=== PATIENT | female | born 1935 | race Caucasian/White ===

== ENCOUNTER → 2016-12-13 | Outpatient (REF) | payer MEDICARE, MEDICAID ==
[~2016-12-13] MED LIST: /ESCI10TA PO; /ESCI20TA PO; /ESOM40CA PO; /MOM400 OR; /WARF25TA OR; ALTA5CAP PO; AMBI10TA PO; ASPI81TA83 PO; BISAC5TA OR; CALC600T7 PO; DRIS1CAP PO; ESTRACE PO; FLECTOR PATCH; GABA400C PO; IBUP200C PO; KLON1TAB PO; LASI40TA PO; LOMO2.5T PO; MIRA255PW OR; MORP10SO PO; MORP15TA4 PO; MORP30TA2 PO; MULTIVIT PO; MULTTAB4 PO; NEUR800T PO; NICO21PAT TD; NICO21PAT TOP; OXYC40TA19 OR; OXYC40TA19 PO; SENO8.6T9 OR; TOPR100T PO; TYLE325T5 PO; ULTR50TA PO; XARE10TA PO; ambien PO
[2016-12-13 18:48] LABS: ALBUMIN 3.3 GM/DL (3.2-5.2); ALBUMIN/GLOBULIN RATIO 0.89 (1.00-1.93); ALKALINE PHOSPHATASE 170 U/L (45-117); ALT/SGPT 20 U/L (12-78); ANION GAP 9 MEQ/L (8-16); AST/SGOT 29 U/L (15-37); BILIRUBIN,TOTAL 0.7 MG/DL (0.2-1.0); BLOOD UREA NITROGEN 16 MG/DL (7-18); CALCIUM LEVEL 8.9 MG/DL (8.8-10.2); CARBON DIOXIDE LEVEL 39 MEQ/L (21-32); CHLORIDE LEVEL 88 MEQ/L (98-107); CREATININE FOR GFR 0.93 MG/DL (0.55-1.02); FERRITIN 56 NG/ML (8-252); GLOMERULAR FILTRATION RATE > 60.0 (>32); GLUCOSE, FASTING 74 MG/DL (83-110); PERCENT SATURATION 21.8 % (13.2-37.4); POTASSIUM SERUM 3.8 MEQ/L (3.5-5.1); SODIUM LEVEL 136 MEQ/L (136-145); TOTAL IRON BINDING CAPACITY 459 UG/DL (250-450)
[2016-12-13 19:12] LABS: BASO % 0.7 % (0.0-1.0); EOS # 0.2 K/mm3 (0.0-0.50); EOS % 4.5 % (0.0-3.0); LARGE UNSTAINED CELL # 0.1 K/mm3 (0.0-0.4); LARGE UNSTAINED CELL % 2.2 % (0.0-4.0); LYMPH # 1.3 K/mm3 (1.5-4.5); LYMPH % 21.7 % (24.0-44.0); MEAN CORPUSCULAR HEMOGLOBIN 30.3 pg (27.0-33.0); MEAN CORPUSCULAR HGB CONC 31.5 g/dl (32.0-36.5); MONO # 0.4 K/mm3 (0.0-0.8); MONO % 7.7 % (0.0-5.0); NEUTROPHILS # 3.5 K/mm3 (1.8-7.7); NEUTROPHILS % 63.3 % (36.0-66.0); PLATELET COUNT, AUTOMATED 143 k/mm3 (150-450); WHITE BLOOD COUNT 5.6 K/mm3 (4.0-10.0)
== END ==
LOC: M SFHCPLAZ 15:33
PROVIDERS: ATTEND Family Medicine
DX: Z85.3 Personal history of malignant neoplasm of breast (principal); I10 Essential (primary) hypertension; E11.9 Type 2 diabetes mellitus without complications; E55.9 Vitamin D deficiency, unspecified; Z23 Encounter for immunization
CPT/HCPCS: 36415; 80053; 82306; 82728; 83036; 83550; 83970; 85025; 86300; 90670; G0009; G0463

== ENCOUNTER 2017-03-11 12:28 | Emergency (ER) | payer MEDICARE, MEDICAID ==
[~2017-03-11] VITALS: Ht 157.5 cm; Wt 62.7 kg
[2017-03-11] MEDS ORDERED: NS 1,000 ML IV SCH (12:48)
[2017-03-11] MEDS ORDERED: SULF-216 XX (12:52)
[2017-03-11] MEDS ORDERED: OXYC1SOL PO (12:52)
[2017-03-11] MEDS ORDERED: ASPI81TA85 PO (12:52)
[2017-03-11] MEDS ORDERED: CYCL10TA PO (12:52)
[2017-03-11] MEDS ORDERED: GLIM2TAB PO (12:52)
[2017-03-11] MEDS ORDERED: OMEP40CA2 PO (12:52)
[2017-03-11] MEDS ORDERED: NS 500 ML IV ONE (13:00)
[2017-03-11 13:16] LABS: BASO # 0.1 K/mm3 (0.0-0.2); BASO % 1.1 % (0.0-1.0); EOS # 0.1 K/mm3 (0.0-0.50); EOS % 1.4 % (0.0-3.0); LARGE UNSTAINED CELL # 0.1 K/mm3 (0.0-0.4); LARGE UNSTAINED CELL % 1.3 % (0.0-4.0); LYMPH # 1.1 K/mm3 (1.5-4.5); LYMPH % 12.9 % (24.0-44.0); MEAN CORPUSCULAR HEMOGLOBIN 32.1 pg (27.0-33.0); MEAN CORPUSCULAR HGB CONC 33.4 g/dl (32.0-36.5); MEAN CORPUSCULAR VOLUME 96.2 fl (80.0-96.0); MONO # 0.4 K/mm3 (0.0-0.8); MONO % 4.9 % (0.0-5.0); NEUTROPHILS # 6.5 K/mm3 (1.8-7.7); NEUTROPHILS % 78.5 % (36.0-66.0); PLATELET COUNT, AUTOMATED 182 k/mm3 (150-450); RED CELL DISTRIBUTION WIDTH 14.6 % (11.5-14.5); WHITE BLOOD COUNT 8.3 K/mm3 (4.0-10.0)
[2017-03-11 14:02] LABS: ALBUMIN 2.6 GM/DL (3.2-5.2); ALBUMIN/GLOBULIN RATIO 0.65 (1.00-1.93); BILIRUBIN,DIRECT 0.2 MG/DL (0.0-0.2); BILIRUBIN,TOTAL 0.9 MG/DL (0.2-1.0); CREATININE FOR GFR 1.15 MG/DL (0.55-1.02); GLOMERULAR FILTRATION RATE 48.3 (>32); POTASSIUM SERUM 4.5 MEQ/L (3.5-5.1); TOTAL PROTEIN 6.6 GM/DL (6.4-8.2)
--- NOTE | 2017-03-11 16:14 | REP ---
CHEST, TWO VIEWS: Two views of the chest are performed and compared to prior study of 06/27/2015. The heart is upper limits of normal in size. There is calcification and tortuosity of the thoracic aorta. The mediastinal silhouette is unchanged. There is bibasilar fibro atelectatic change without consolidating infiltrate. There is osteopenia with mild degenerative changes of the spine. There are several compression deformities of the mid to lower thoracic vertebral bodies which are stable but there is a new moderate compression deformity of T4. IMPRESSION: Chronic bibasilar fibro atelectatic changes. Multiple compression deformities of the thoracic spine are unchanged since 2014 except for new compression deformity at T4 level. Signed by Jose A Del Cid MD 03/11/2017 05:14 P
[2017-03-11 18:35] VITALS: BP 128/59
== END 2017-03-11 18:39 | disposition home or self-care (01) ==
LOC: M ED 13:47
DX: E87.1 Hypo-osmolality and hyponatremia (principal); R53.83 Other fatigue; I25.10 Atherosclerotic heart disease of native coronary artery without angina pectoris; I11.0 Hypertensive heart disease with heart failure; G89.29 Other chronic pain; Z90.79 Acquired absence of other genital organ(s); Z90.89 Acquired absence of other organs; Z88.0 Allergy status to penicillin; Z88.8 Allergy status to other drugs, medicaments and biological substances; Z79.82 Long term (current) use of aspirin; Z79.891 Long term (current) use of opiate analgesic; Z79.899 Other long term (current) drug therapy

== ENCOUNTER 2017-06-07 10:16 | Emergency (ER) | payer MEDICARE, MEDICAID ==
[~2017-06-07] VITALS: Ht 157.5 cm; Wt 55.5 kg
[~2017-06-07 10:16] MED LIST changes: +ASPI81TA85 PO; +CYCL10TA PO; +GLIM2TAB PO; +OMEP40CA2 PO; +OXYC1SOL3 PO; +SULF-216 XX
[2017-06-07] MEDS ORDERED: ONDANSETRON 4MG/2ML VIAL (J2405) IV ONE (10:45)
[2017-06-07] MEDS ORDERED: MORPHINE 2 MG/ML 1ML SYRINGE IV ONE (10:45)
[2017-06-07 12:25] VITALS: BP 136/62
--- NOTE | 2017-06-10 08:31 | REP ---
Clinical: Trauma. Technique: AP view of the pelvis and a neutral and frog lateral views of the right hip. Findings: The patient is status post bilateral arthroplasty. Osteopenia and degenerative changes to the visualized lumbosacral spine and pelvis noted. No obvious acute right hip fracture identified. Impression: Osteopenia and degenerative changes along with bilateral arthroplasty. No acute fracture appreciated. Signed by Uri Pacheco MD 06/07/2017 11:10 A
--- NOTE | 2017-06-10 08:31 | REP ---
Clinical: Trauma. Technique: Frontal view of the chest with multiple views of the right hemithorax. Findings: Frontal view of the chest demonstrates no acute cardiopulmonary process. Multiple views of the right hemithorax demonstrates no obvious acute rib fracture or pathology. Impression: Normal right rib series Signed by Uri Pacheco MD 06/07/2017 11:11 A
== END 2017-06-07 13:44 | disposition home or self-care (01) ==
LOC: EDBD 10:16 → M ED 10:16
DX: S20.211A Contusion of right front wall of thorax, initial encounter (principal); S00.83XA Contusion of other part of head, initial encounter; Z85.3 Personal history of malignant neoplasm of breast; I10 Essential (primary) hypertension; J44.9 Chronic obstructive pulmonary disease, unspecified; Z72.0 Tobacco use; W01.198A Fall on same level from slipping, tripping and stumbling with subsequent striking against other object, initial encounter; Y92.099 Unspecified place in other non-institutional residence as the place of occurrence of the external cause; Y93.89 Activity, other specified; Y99.9 Unspecified external cause status
CPT/HCPCS: 71101; 73502; 96374; 96375; 99284; J2405

== ENCOUNTER 2017-08-23 03:23 | Inpatient (IN) | payer MEDICARE, MEDICAID ==
[~2017-08-23] VITALS: Ht 157.5 cm; Wt 49.5 kg
[2017-08-23] MEDS ORDERED: ZOLP10TA2 PO (03:47)
[2017-08-23 04:27] LABS: BASO % 0.5 % (0.0-1.0); EOS # 0.1 10^3/uL (0.0-0.50); EOS % 0.8 % (0.0-3.0); IMMATURE GRANULOCYTE % 0.6 % (0-0); LYMPH # 0.8 10^3/uL (1.5-4.5); LYMPH % 12.1 % (24.0-44.0); MEAN CORPUSCULAR HEMOGLOBIN 31.9 pg (27.0-33.0); MEAN CORPUSCULAR HGB CONC 34.1 g/dl (32.0-36.5); MEAN CORPUSCULAR VOLUME 93.6 fl (80.0-96.0); MONO # 0.5 10^3/uL (0.0-0.8); MONO % 8.1 % (0.0-5.0); NEUTROPHILS # 4.9 10^3/uL (1.8-7.7); NEUTROPHILS % 77.9 % (36.0-66.0); PLATELET COUNT, AUTOMATED 207 10^3/uL (150-450); RED CELL DISTRIBUTION WIDTH 15.7 % (11.5-14.5); WHITE BLOOD COUNT 6.3 10^3/uL (4.0-10.0)
[2017-08-23 04:47] LABS: ALBUMIN 2.6 GM/DL (3.2-5.2); ALBUMIN/GLOBULIN RATIO 0.76 (1.00-1.93); ALKALINE PHOSPHATASE 138 U/L (45-117); ALT/SGPT 14 U/L (12-78); ANION GAP 6 MEQ/L (8-16); AST/SGOT 24 U/L (7-37); BILIRUBIN,DIRECT 0.4 MG/DL (0.0-0.2); BILIRUBIN,TOTAL 0.9 MG/DL (0.2-1.0); BLOOD UREA NITROGEN 13 MG/DL (7-18); CALCIUM LEVEL 8.4 MG/DL (8.8-10.2); CARBON DIOXIDE LEVEL 38 MEQ/L (21-32); CHLORIDE LEVEL 89 MEQ/L (98-107); CREATININE FOR GFR 0.95 MG/DL (0.55-1.02); GLOMERULAR FILTRATION RATE > 60.0 (>32); GLUCOSE, FASTING 150 MG/DL (83-110); POTASSIUM SERUM 4.1 MEQ/L (3.5-5.1); SODIUM LEVEL 133 MEQ/L (136-145); T UPTAKE 49 % (30-39); THYROXINE (T4) 10.6 UG/DL (4.5-12.0)
[2017-08-23 04:55] LABS: ABG BASE EXCESS 6.2 (-2.0-2.0); ABG HCO3 31.5 MEQ/L (22.0-26.0); ABG PARTIAL PRESSURE CO2 47.5 mmHg (35.0-45.0); ABG STANDARD HCO3 29.9 MEQ/L (22.0-26.0)
[2017-08-23] MEDS ORDERED: NS 500 ML IV ONE (05:15)
[2017-08-23] MEDS ORDERED: ONDANSETRON 4 MG TAB (S0181) PO PRN (05:15)
[2017-08-23] MEDS ORDERED: CIPROFLOXACIN 400 MG in APPROPRIATE DILUENT 1 EA IV ONE (05:15)
[2017-08-23] MEDS ORDERED: VITMTA PO (05:40)
[2017-08-23] MEDS ORDERED: VITA1CAP40 PO (05:41)
[2017-08-23] MEDS ORDERED: GLIM1TAB PO (05:41)
[2017-08-23] MEDS ORDERED: ASPI1TAB15 PO (05:41)
[2017-08-23] MEDS ORDERED: VITA500T PO (05:41)
[2017-08-23] MEDS ORDERED: OXYC-517 PO (05:41)
[2017-08-23] MEDS ORDERED: ZOLP5TAB PO (05:41)
[2017-08-23] MEDS ORDERED: GLUCOSE 4 GM CHEW TABLET PO PRN (06:15)
[2017-08-23] MEDS ORDERED: DEXTROSE 50% 50 ML SYRINGE IV PRN (06:15)
[2017-08-23] MEDS ORDERED: GLUCAGON FOR INJ 1 MG VIAL (J1610) SC PRN (06:15)
--- NOTE | 2017-08-23 06:20 | REPUSA ---
CLINICAL HISTORY: Lethargy. TECHNIQUE: Multiple axial CT images were obtained through the brain without IV contrast material. COMMENTS: Comparison to prior exam performed on 09/18/2012. 3.5x2.7 cm left frontal/temporal cortical/subcortical ill-defined hypodensity. Mild effacement of the adjacent sulci. There is normal configuration of sella turcica. There are no intra or extra-axial collections. There is no mass effect or midline shift. There is no evidence of hematoma formation. No hydrocephalus is p resent. The ventricles are symmetrical. No abnormal calcifications are present. There is diffuse age-appropriate cerebellar and cerebral atrophy with proportionally dilated ventricl es and cortical sulci. There are bilateral periventricular and subcortical white matter hypolucencies compatible with mild c hronic microvascular disease. IMPRESSION: 1. Age-appropriate cerebellar and cerebral atrophy. 2. Mild chronic microvascular disease. 3. Cortical/subcortical hypodensity in the left frontal/temporal lobes. This may represent Acute/suba cute ischemia. Clinical evaluation and followup are suggested. No associated significant edema, midli ne shift or brain herniation. Findings are not present on prior exam. Thank you for your kind referral of this patient.
[2017-08-23 06:52] VITALS: BP 128/78
--- NOTE | 2017-08-23 07:11 | HPEPDOC ---
General Date of Admission Aug 23, 2017 at 03:24 Primary Care Physician: Suraj Valdivia M.D. Attending Physician: Ishmael Martinez M.D. Chief Complaint 81-year-old female is brought to the ED by home health aide due to altered mental status and lethargy. PMH includes Diastolic Heart failure, HTN, COPD on 2L NC prn, hx of recurrent pancreatitis, alcohol hepatitis/cirrhosis. Per aide, patient complained of weakness in her legs 2 days ago, and as of yesterday was very lethargic, unable to self assist herself with movements, and and out of coherence, babbling her words, lacking strength, and confused. For the 2 months this aide has worked with patient, she denies having witnessed this before. Per aide, patient had baseline is communicative and able to move on her own. Health aid denies the patient having slurred speech, droopy face, body shaking, loss of bowel or bladder function. In the ED, patient was given a fluid bolus and 1 dose of Cipro. Home Medications Scheduled (Gabapentin) 400 Mg Cap, 400 MG PO BID, (Reported) Ascorbic Acid (Vitamin C) 500 Mg Tab, 500 MG PO QAM, (Reported) Aspirin (Aspirin) 81 Mg Tab, 81 MG PO DAILY, (Reported) Clonazepam (Klonopin) 1 Mg Tab, 1 MG PO BID, (Reported) Ergocalciferol (Vitamin D) 50,000 Unit Cap, 50,000 UNIT PO QWEEK, (Reported) ON WEDNESDAYS Escitalopram Oxalate (Lexapro) 20 Mg Tab, 20 MG PO QHS, (Reported) Esomeprazole (Nexium) 40 Mg Cap, 40 MG PO DAILY, (Reported) AT NOON Furosemide (Lasix) 40 Mg Tab, 40 MG PO DAILY, (Reported) Glimepiride (Glimepiride) 1 Mg Tab, 1 MG PO BID, (Reported) Metoprolol Succinate (Metoprolol Succinate Er) 100 Mg Tab, 100 MG PO DAILY, ( Reported) Multivitamins *[facility] STOCKED* (Thera M Plus *[facility] STOCKED*) 1 Tab Tab, 1 TAB PO DAILY, (Reported) Oxycodone HCl (Oxycodone HCl) 5 Mg Tab, 5 MG PO ASDIRECTED, (Reported) EVERY 5 HOURS AND 2 AT BEDTIME NEEDED FOR PAIN Ramipril (Altace) 5 Mg Cap, 5 MG PO BID, (Reported) Scheduled PRN Zolpidem Tartrate (Zolpidem Tartrate) 5 Mg Tab, 5 MG PO QHS PRN for SLEEP, ( Reported) Allergies Coded Allergies: Clavulanic Acid (Verified Adverse Reaction, Mild, VOMITING, 01/05/13) Penicillins (Verified Adverse Reaction, Mild, VOMITING, 01/05/13) Penicillins Cross Reactors (Verified Adverse Reaction, Mild, VOMITING, 01/05) Past Medical History Medical History History left breast cancer s/p lumpectomy, radiation, chemotherapy Diastolic Heart failure HTN COPD, 2L NC prn Depression Insomnia GERD Subclinical hyperthyroidism Stress, urge incontinence DJD Osteoarthritis Essential tremor Nicotine addiction Anemia of chronic disease History of recurrent pancreatitis Alcohol hepatitis/cirrhosis Avascular necrosis of humeral head Hx of H. pylori Surgical History Enterocele repair Bilateral cataract repair Right femoral shaft fracture repair Lumpectomy, breast cancer Family History Per her PCP's clinic note dated 05/29/2017: , Bart, is healthcare proxy, she does not want daughter, Lori, involved in her care in any way Social History Has a history of heavy tobacco and alcohol use Lives with , assisted by home health care coordinator Review of Symptoms Constitutional: Reports: Weakness, Fatigue, Lethargy, Denies: Chills, Fever Pulmonary: Reports: Cough Cardiovascular: Denies: Chest Pain, Lt Headedness Gastrointestinal: Denies: Nausea, Vomiting, Abdominal Pain Genitourinary: Denies: Incontinence Neurological: Reports: Weakness, Change in speech (garbled), Confusion, Denies: Numbness, Incoordination, Seizures Other systems All ROS is obtained via pt's home comfort advisor in room Physical Examination General Exam: Positive: No Acute Distress, Negative: Alert, Cooperative (minimally responsive) Eye Exam: Positive: Conjunctiva & lids normal ENT Exam: Positive: Atraumatic Neck Exam: Negative: Lymphadenopathy Chest Exam: Positive: Clear to auscultation (initial rhonchi that cleared up on patient's cough) Heart Exam: Positive: Rate Normal, Normal S1, Normal S2 Abdomen Exam: Positive: Normal bowel sounds, Soft, Negative: Tenderness Extremity Exam: Positive: Normal pulses, Negative: Cyanosis, Edema, Tenderness, Swelling Skin Exam: Positive: Nl turgor and temperature Neuro Exam: Negative: Normal Speech (mumbled), Strength at 5/5 X4 ext, Normal Tone (weak hand migratory worker) Psych Exam: Negative: Mental status NL (minimally interactive, eyes closed in bed, responds with 1-2 words intermittently), Memory Intact, Oriented x 3 (is NOT oriented to self, place, or year) Vital Signs Vital Signs Date Time Temp Pulse Resp B/P (MAP) Pulse Ox O2 Delivery O2 Flow Rate FiO2 08/23/17 05:15 68 16 107/54 (71) 92 Room Air 08/23/17 03:43 98.0 2.0 Laboratory Data Labs 24H Laboratory Tests 2 08/23/17 04:00: Immature Granulocyte % (Auto) 0.6H, White Blood Count 6.3, Red Blood Count 5.30 , Hemoglobin 16.9H, Hematocrit 49.6H, Mean Corpuscular Volume 93.6, Mean Corpuscular Hemoglobin 31.9, Mean Corpuscular Hemoglobin Concent 34.1, Red Cell Distribution Width 15.7H, Platelet Count 207, Neutrophils (%) (Auto) 77.9H, Lymphocytes (%) (Auto) 12.1L, Monocytes (%) (Auto) 8.1H, Eosinophils (%) (Auto) 0.8, Basophils (%) (Auto) 0.5, Neutrophils # (Auto) 4.9, Lymphocytes # (Auto) 0.8L, Monocytes # (Auto) 0.5, Eosinophils # (Auto) 0.1, Basophils # (Auto) 0.0, Immature Granulocyte # (Auto) 0.0, Nucleated Red Blood Cells % (auto) 0.0, Anion Gap 6L, Glomerular Filtration Rate > 60.0, Lactic Acid Level 1.5, Calcium Level 8.4L, Aspartate Amino Transf (AST/SGOT) 24, Alanine Aminotransferase (ALT/ SGPT) 14, Alkaline Phosphatase 138H, Total Bilirubin 0.9, Direct Bilirubin 0.4H , Ammonia 13, Total Protein 6.0L, Albumin 2.6L, Albumin/Globulin Ratio 0.76L, Lipase 66L, Thyroid Stimulating Hormone (TSH) 0.376, Free Thyroxine Index 5.2H, Thyroxine (T4) 10.6, Triiodothyronine (T3) Uptake 49H 08/23/17 04:41: Urine Appearance HAZY, Urine Color YELLOW, Urine pH 7.0, Urine Specific [place] 1.008, Urine Protein NEGATIVE, Urine Glucose (UA) NEGATIVE, Urine Ketones NEGATIVE, Urine Urobilinogen 2.0H, Urine Bilirubin NEGATIVE, Urine Leukocyte Esterase 2+H, Urine Blood NEGATIVE, Urine Nitrite POSITIVE, Urine WBC (Auto) 19H , Urine RBC (Auto) 1, Urine Hyaline Casts (Auto) 0, Urine Bacteria (Auto) 1+H, Urine Squamous Epithelial Cells 0, Urine Sperm (Auto) 08/23/17 04:44: Blood Gas Bicarbonate Standard 29.9H, Arterial Blood pH 7.440, Arterial Blood Partial Pressure CO2 47.5H, Arterial Blood Partial Pressure O2 58.0L, Arterial Blood Total CO2 33.0H, Arterial Blood HCO3 31.5H, Arterial Blood Base Excess 6.2H, Arterial Blood Oxygen Saturation 90.0L CBC/BMP Laboratory Tests 08/23/17 04:00 Red Blood Count 5.30, Mean Corpuscular Volume 93.6, Mean Corpuscular Hemoglobin 31.9, Mean Corpuscular Hemoglobin Concent 34.1, Red Cell Distribution Width 15.7 H, Neutrophils (%) (Auto) 77.9 H, Lymphocytes (%) (Auto) 12.1 L, Monocytes (%) (Auto) 8.1 H, Eosinophils (%) (Auto) 0.8, Basophils (%) (Auto) 0.5, Neutrophils # (Auto) 4.9, Lymphocytes # (Auto) 0.8 L, Monocytes # (Auto) 0.5, Eosinophils # (Auto) 0.1, Basophils # (Auto) 0.0 Microbiology Microbiology 08/23/17 Blood Culture, Received Pending 08/23/17 Urine Culture, Received Pending Assessment/Plan Altered mental status UTI vs ischemic infarct Per nursing executive, patient has been in and out of coherence, babbling her words, lethargic, decreased strength, confused as of yesterday. Patient on exam is minimally interactive, lethargic with eyes closed in bed. Presenting vitals on admission were WNL, as were ABG and thyroid panel; unlikely to be respiratory cause or metabolic encephalopathy or myxedema coma. CXR reveals no acute concerns. CT of head was read as a possible acute/subacute ischemia. Discussed case with Neurology and was recommended to do MRI and then touch base if suspicion is confirmed. Appreciate their assistance Patient was noted to have positive UA which may be contributing to her AMS, no leukocytosis or fever. Will start on Ceftriaxone and fluids. Hold home Lasix as goal is to hydrate pt. Urine & blood cultures pending Elevated H&H pt has hx of anemia of chronic disease likely hemoconcentration. On IV fluids. Monitor Electrolyte abnormality Pt slightly hyponatremic and hypochloremic on admission. IV NaCl fluid started. Monitor DM2 Hold home meds. Start ISS Continue home Gabapentin COPD continue nebs Diastolic Heart Failure no decompensation. Continue ASA 81mg HTN controlled. Continue home Ramipril, Metoprolol Osteoarthritis, DJD Hold home Oxycodone due to altered mental status Depression Hold home Escitalopram due to pt's mental status Insomnia Hold home Ambien due to pt's confused, lethargic state Anemia of chronic disease stable History of recurrent pancreatitis stable Hx of alcohol hepatitis/cirrhosis stable DVT prophylaxis TEDs/SCDs, hold anticoagulation until brain infarct or bleed is ruled out DISPOSITION: Will admit to hospital in transfer to Dr. Martinez service in a.m. Plan / VTE VTE Prophylaxis Ordered?: Yes GME ATTESTATION GME ATTESTATION My faculty preceptor for this patient encounter was physically present during the encounter and was fully available. All aspects of the patient interview, examination, medical decision making process, and medical care plan development were reviewed and approved by the faculty preceptor. The faculty preceptor is aware and concurs with the plan as stated in the body of this note and will attest to such by his/her cosignature. ATTENDING NOTE I have seen and examined the patient as did the resident I have reviewed the case and discussed the plan with her I concur with her findings on HX and PE and agree with her A&P with the following additions/Exceptions: Patient with UTI and Acute/Subacute finding on Head CT with AMS so a 2 MN stay is expected. EDNA TORRES DO Aug 23, 2017 07:10 JULIO ALMANZA MD Aug 24, 2017 22:19
[2017-08-23] MEDS: NS 1,000 ML IV SCH ×2 (08:10→18:50)
[2017-08-23] MEDS: HumaLOG INSULIN (NovoLOG) PER UNIT SC SCH ×4 (08:14→21:00)
--- NOTE | 2017-08-23 08:37 | REP ---
Clinical: Dyspnea . Comparison: 06/07/2017 . Findings: The mediastinum and cardiac silhouette are stable and within normal limits for portable technique. The lung lewis demonstrate chronic interstitial changes without acute consolidation, effusion, or pneumothorax. Skeletal structures are intact. Impression: Stable chronic interstitial changes. No acute cardiopulmonary process appreciated. Signed by Uri Pacheco MD 08/23/2017 08:29 A
[2017-08-23] MEDS ORDERED: RAMIPRIL 5 MG CAP PO SCH (09:00)
[2017-08-23] MEDS ORDERED: ENOXAPARIN 40 MG/0.4 ML SYRINGE (J1650) SC SCH (09:00)
[2017-08-23] MEDS ORDERED: ASPIRIN 81 MG ENTERIC TAB PO SCH (09:00)
[2017-08-23] MEDS ORDERED: METOPROLOL SUCC (TopROL XL) 100MG *XL* TAB PO SCH (09:00)
[2017-08-23 09:36] VITALS: BP 136/70
[2017-08-23] MEDS: clonazePAM 1 MG TAB PO SCH ×2 (09:40→21:27)
[2017-08-23] MEDS: ASCORBIC ACID 500 MG TAB PO SCH (09:40)
[2017-08-23] MEDS: CEFTRIAXONE SOD 1 GM in APPROPRIATE DILUENT 1 EA IV SCH (09:40)
[2017-08-23] MEDS: PANTOPRAZOLE 40MG TAB (PROTONIX) PO SCH (09:40)
[2017-08-23] MEDS: GABAPENTIN 400 MG CAP PO SCH ×2 (09:41→21:27)
[2017-08-23] MEDS: MULTIVITAMINS/MINERALS THERAP 1 TAB PO SCH (09:41)
--- NOTE | 2017-08-23 11:45 | REP ---
Clinical: Altered mental status and suspected acute infarction by CT. Technique: Axial T2, FLAIR, and diffusion/ADC mapping sequences with sagittal T1 sequence. Findings: Examination is significantly limited due to motion artifact. However, areas of acute infarction are identified with in the left temporal and parietofrontal lobe areas with mild edema. No evidence for acute intracranial hemorrhage. Underlying atrophy, periventricular leukomalacia and chronic microvascular ischemic changes are noted. The ventricles, sulci and cisterns are symmetric and patent. No extra-axial fluid collection is appreciated. Impression: The areas of acute infarction involving the left temporal and left parietofrontal lobe regions with mild edema. No intracranial hemorrhage or mass effect is appreciated. Signed by Uri Pacheco MD 08/23/2017 11:36 A
[2017-08-23] MEDS: ASPIRIN 325 MG TAB PO SCH (13:20)
[2017-08-23] MEDS: ATORVASTATIN 20 MG TAB PO SCH (13:20)
[2017-08-23 14:00] VITALS: BP 146/82
--- NOTE | 2017-08-23 14:05 | IPNPDOC ---
Subjective Date Seen The patient was seen on 08/23/17. Subjective Chief Complaint/HPI The patient is a 81-year-old female admitted with a reason for visit of Dehydration, Uti, found to have acute CVA on MRI Events since last encounter Patient states she is doing okay today. She does not have any acute concerns. Constitutional: Denies: Chills, Fever Pulmonary: Denies: Dyspnea Cardiovascular: Denies: Chest Pain Gastrointestinal: Denies: Nausea, Vomiting, Abdominal Pain Genitourinary: Denies: Dysuria, Hematuria Neurological: Denies: Weakness, Numbness Objective Physical Examination General Exam: Positive: Alert, Cooperative, No Acute Distress Chest Exam: Positive: Clear to auscultation, Normal air movement, Negative: Rales, Rhonchi, Wheezing Heart Exam: Positive: Rate Normal, Regular Rhythm, Normal S1, Normal S2, Negative: Gallops, Murmurs, Rubs Abdomen Exam: Positive: Normal bowel sounds, Soft, Negative: Tenderness, Hepatospenomegaly, Mass Extremity Exam: Negative: Edema Neuro Exam: Positive: Normal Speech (mumbled appears to have some difficulty finding words), Strength at 5/5 X4 ext, Sensation Intact Psych Exam: Positive: Mental status NL, Other (oriented to person, hospital, day after [place]) RAD Interpretation STUDY: Brain MRI: Areas of acute infarction involving the left temporal and left parietal frontal lobe regions with mild edema. No acute intracranial hemorrhage or mass effect Assessment /Plan Problems (1) Acute CVA (cerebrovascular accident) Status: Acute Discussed With: Reservation Sales Agent Problem Text: 08/23: Brain MRI revealed acute CVA. Case was discussed with Dr. Tellez from neurology, neurology was consulted. Orders placed for aspirin 325 mg daily, atorvastatin 40 mg daily, PT/OT. (2) Urinary tract infection Problem Text: 08/23: Patient currently being treated for urinary tract infection, ceftriaxone started on 08/23. Follow-up results from urine culture when available (3) Altered mental status Problem Text: 08/23: Improving, likely secondary to urinary tract infection and acute CVA (4) Type 2 diabetes mellitus Problem Text: 08/23: Stable, continue sliding scale insulin (5) COPD (chronic obstructive pulmonary disease) Problem Text: 08/23: Stable, continue nebulizers as needed (6) Diastolic congestive heart failure Problem Text: 08/23: Stable, order for aspirin increased to 325 mg due to acute CVA (7) Hypertension Problem Text: 08/23: Stable, continue current medications (8) Osteoarthritis Problem Text: 08/23: Continue to hold oxycodone due to altered mental status (9) Depression Problem Text: 08/23: Continue to hold escitalopram due to altered mental status (10) Insomnia Problem Text: 08/23: Continue to hold Ambien due to altered mental status Plan/VTE VTE Prophylaxis Ordered?: Yes Plan Therapy: PT, OT Patient was seen and examined by myself and her care was reviewed with the resident physician on service VS, I&O, [facility] Signs/I&O Vital Signs Date Time Temp Pulse Resp B/P (MAP) Pulse Ox O2 Delivery O2 Flow Rate FiO2 08/23/17 10:00 Nasal Cannula 3.0 08/23/17 09:42 92 08/23/17 09:41 83 136/70 08/23/17 09:36 98.4 18 I&O- Last 24 Hours up to 6 AM 08/24/17 06:00 Intake Total 10 ml Output Total 0 ml Balance 10 ml Laboratory Data 24H LABS Laboratory Tests 2 08/23/17 04:00: Immature Granulocyte % (Auto) 0.6H, White Blood Count 6.3, Red Blood Count 5.30 , Hemoglobin 16.9H, Hematocrit 49.6H, Mean Corpuscular Volume 93.6, Mean Corpuscular Hemoglobin 31.9, Mean Corpuscular Hemoglobin Concent 34.1, Red Cell Distribution Width 15.7H, Platelet Count 207, Neutrophils (%) (Auto) 77.9H, Lymphocytes (%) (Auto) 12.1L, Monocytes (%) (Auto) 8.1H, Eosinophils (%) (Auto) 0.8, Basophils (%) (Auto) 0.5, Neutrophils # (Auto) 4.9, Lymphocytes # (Auto) 0.8L, Monocytes # (Auto) 0.5, Eosinophils # (Auto) 0.1, Basophils # (Auto) 0.0, Immature Granulocyte # (Auto) 0.0, Nucleated Red Blood Cells % (auto) 0.0, Anion Gap 6L, Glomerular Filtration Rate > 60.0, Lactic Acid Level 1.5, Calcium Level 8.4L, Aspartate Amino Transf (AST/SGOT) 24, Alanine Aminotransferase (ALT/ SGPT) 14, Alkaline Phosphatase 138H, Total Bilirubin 0.9, Direct Bilirubin 0.4H , Ammonia 13, Total Protein 6.0L, Albumin 2.6L, Albumin/Globulin Ratio 0.76L, Lipase 66L, Thyroid Stimulating Hormone (TSH) 0.376, Free Thyroxine Index 5.2H, Thyroxine (T4) 10.6, Triiodothyronine (T3) Uptake 49H 08/23/17 04:41: Urine Appearance HAZY, Urine Color YELLOW, Urine pH 7.0, Urine Specific [place] 1.008, Urine Protein NEGATIVE, Urine Glucose (UA) NEGATIVE, Urine Ketones NEGATIVE, Urine Urobilinogen 2.0H, Urine Bilirubin NEGATIVE, Urine Leukocyte Esterase 2+H, Urine Blood NEGATIVE, Urine Nitrite POSITIVE, Urine WBC (Auto) 19H , Urine RBC (Auto) 1, Urine Hyaline Casts (Auto) 0, Urine Bacteria (Auto) 1+H, Urine Squamous Epithelial Cells 0, Urine Sperm (Auto) 08/23/17 04:44: Blood Gas Bicarbonate Standard 29.9H, Arterial Blood pH 7.440, Arterial Blood Partial Pressure CO2 47.5H, Arterial Blood Partial Pressure O2 58.0L, Arterial Blood Total CO2 33.0H, Arterial Blood HCO3 31.5H, Arterial Blood Base Excess 6.2H, Arterial Blood Oxygen Saturation 90.0L 08/23/17 07:38: Bedside Glucose (Misc Panel) 153H 08/23/17 12:14: Bedside Glucose (Misc Panel) 166H CBC/BMP Laboratory Tests 08/23/17 04:00 Red Blood Count 5.30, Mean Corpuscular Volume 93.6, Mean Corpuscular Hemoglobin 31.9, Mean Corpuscular Hemoglobin Concent 34.1, Red Cell Distribution Width 15.7 H, Neutrophils (%) (Auto) 77.9 H, Lymphocytes (%) (Auto) 12.1 L, Monocytes (%) (Auto) 8.1 H, Eosinophils (%) (Auto) 0.8, Basophils (%) (Auto) 0.5, Neutrophils # (Auto) 4.9, Lymphocytes # (Auto) 0.8 L, Monocytes # (Auto) 0.5, Eosinophils # (Auto) 0.1, Basophils # (Auto) 0.0 Microbiology Microbiology 08/23/17 Blood Culture, Received Pending 08/23/17 Urine Culture, Received Pending GME ATTESTATION GME ATTESTATION My faculty preceptor for this patient encounter was physically present during the encounter and was fully available. All aspects of the patient interview, examination, medical decision making process, and medical care plan development were reviewed and approved by the faculty preceptor. The faculty preceptor is aware and concurs with the plan as stated in the body of this note and will attest to such by his/her cosignature. REINA LUCIA DO Aug 23, 2017 14:05 Ishmael Martinez M.D. Aug 23, 2017 16:47
[2017-08-23 19:10] VITALS: BP 120/58
[2017-08-23 20:00] VITALS: BP 142/67
[2017-08-23 23:26] VITALS: BP 115/72
[2017-08-23] MEDS: IPRATROPIUM 0.5MG/ALBUTEROL 2.5MG INH SOL UD 3ML (DUONEB)(J7620) NEB PRN (23:55)
[2017-08-24] VITALS: BP 146/76
[2017-08-24] MEDS ORDERED: MAGNESIUM OXIDE 400 MG TAB (MAG-OX) PO ONE (00:15)
[2017-08-24] MEDS: NS 1,000 ML IV SCH ×2 (01:14→13:29)
[2017-08-24 04:00] VITALS: BP 139/59
[2017-08-24 05:26] LABS: BASO % 0.4 % (0.0-1.0); EOS % 0.9 % (0.0-3.0); IMMATURE GRANULOCYTE % 0.9 % (0-0); LYMPH # 0.6 10^3/uL (1.5-4.5); LYMPH % 12.6 % (24.0-44.0); MEAN CORPUSCULAR HEMOGLOBIN 32.2 pg (27.0-33.0); MEAN CORPUSCULAR HGB CONC 33.9 g/dl (32.0-36.5); MEAN CORPUSCULAR VOLUME 95.1 fl (80.0-96.0); MONO # 0.4 10^3/uL (0.0-0.8); MONO % 7.7 % (0.0-5.0); NEUTROPHILS # 3.6 10^3/uL (1.8-7.7); NEUTROPHILS % 77.5 % (36.0-66.0); PLATELET COUNT, AUTOMATED 173 10^3/uL (150-450); RED CELL DISTRIBUTION WIDTH 15.4 % (11.5-14.5); WHITE BLOOD COUNT 4.7 10^3/uL (4.0-10.0)
[2017-08-24 07:34] LABS: ANION GAP 5 MEQ/L (8-16); BLOOD UREA NITROGEN 8 MG/DL (7-18); CALCIUM LEVEL 7.9 MG/DL (8.8-10.2); CARBON DIOXIDE LEVEL 34 MEQ/L (21-32); CHLORIDE LEVEL 97 MEQ/L (98-107); CREATININE FOR GFR 0.66 MG/DL (0.55-1.02); GLOMERULAR FILTRATION RATE > 60.0 (>32); GLUCOSE, FASTING 103 MG/DL (83-110); POTASSIUM SERUM 3.7 MEQ/L (3.5-5.1); SODIUM LEVEL 136 MEQ/L (136-145)
[2017-08-24 08:00] VITALS: BP 145/70
[2017-08-24] MEDS: HumaLOG INSULIN (NovoLOG) PER UNIT SC SCH ×4 (08:17→20:55)
[2017-08-24] MEDS: ASPIRIN 325 MG TAB PO SCH (08:31)
[2017-08-24] MEDS: CEFTRIAXONE SOD 1 GM in APPROPRIATE DILUENT 1 EA IV SCH (08:31)
[2017-08-24] MEDS: ASCORBIC ACID 500 MG TAB PO SCH (08:32)
[2017-08-24] MEDS: ATORVASTATIN 20 MG TAB PO SCH (08:32)
[2017-08-24] MEDS: MULTIVITAMINS/MINERALS THERAP 1 TAB PO SCH (08:32)
[2017-08-24] MEDS: MAGNESIUM OXIDE 400 MG TAB (MAG-OX) PO SCH ×2 (08:32→20:55)
[2017-08-24] MEDS: GABAPENTIN 400 MG CAP PO SCH ×2 (08:32→20:54)
[2017-08-24] MEDS: PANTOPRAZOLE 40MG TAB (PROTONIX) PO SCH (08:32)
[2017-08-24] MEDS: clonazePAM 1 MG TAB PO SCH ×2 (08:32→20:55)
[2017-08-24] MEDS: oxyCODONE 5MG TAB PO PRN ×2 (10:18→17:40)
--- NOTE | 2017-08-24 11:09 | CR ---
DATE OF CONSULTATION: 08/23/2017 REASON FOR CONSULTATION: Suspected stroke. HISTORY OF PRESENT ILLNESS: Viridiana Villafana is an 81-year-old female with past medical history significant for diastolic heart failure, hypertension, chronic obstructive pulmonary disease (COPD) on 2 liters nasal cannula as needed, who presents with a chief complaint of confusion. The patient's home health aid found her to be confused and lethargic. The patient was complaining weakness in both legs for the past few days. The patient was found to have a urinary tract infection (UTI) in the emergency department. Head CT revealed possible subacute ischemic stroke of the left posterior temporal parietal region. The patient ended up having an MRI confirming the presence of any acute ischemic stroke involving the left frontotemporal parietal region. The patient herself does not have any significant complaints of this time. She does generally feel exhausted. Apparently she has been mentating better since being treated for her UTI. HOME MEDICATIONS: - gabapentin 400 mg by mouth twice a day - ascorbic acid 500 mg by mouth daily - aspirin 81 mg by mouth daily - clonazepam 1 mg by mouth twice a day - vitamin D 50,000 international units by mouth every week - Lexapro 20 mg by mouth at bedtime - Nexium 40 mg by mouth daily - Lasix 40 mg by mouth daily - glimepiride 1 mg by mouth twice a day - metoprolol succinate 100 mg by mouth daily - multivitamin by mouth daily - oxycodone 5 mg by mouth daily as needed pain - ramipril 5 mg by mouth twice a day - Ambien 5 mg by mouth at bedtime as needed insomnia ALLERGIES: 1. CLAVULANIC ACID. 2. PENICILLIN. PAST MEDICAL HISTORY: History of left breast cancer status post lumpectomy, radiation, and chemotherapy. Diastolic heart failure. Hypertension. COPD on 2 liters nasal cannula as needed. Depression. Insomnia. Gastroesophageal reflux disease. Subclinical hyperthyroidism. Stress urge incontinence. Degenerative joint disease. Osteoarthritis (OA). Essential tremor. Nicotine addiction. Anemia of chronic disease. History of recurrent pancreatitis. Alcoholic hepatitis and cirrhosis. Avascular necrosis of femoral head. History of H. pylori. PAST SURGICAL HISTORY: Enterocele repair. Bilateral cataract repair. Right femoral shaft fracture repair. Lumpectomy, breast cancer. FAMILY HISTORY: Noncontributory. SOCIAL HISTORY: The patient has a history of tobacco abuse, alcohol abuse. REVIEW OF SYSTEMS: 14-point review of systems obtained and is negative except as per history of present illness. PHYSICAL EXAMINATION: Blood pressure is 136/70, pulse rate 83, respiratory rate is 18, oxygenation 92% on 4 liters nasal cannula, temperature 98.4 degrees Fahrenheit. Current height 5 feet 2 inches, current weight is 54.4 kg. The patient is awake, alert, oriented to person and place, but not the correct year. She is able to follow commands. Pupils are 2.5 mm, round and reactive to light. Extraocular movements are observed to be intact in all directions. Sensation V1, V2 and V3 is intact to light touch. No facial asymmetry on activation. Palate elevates symmetrically. Tongue is midline. The patient does not demonstrate pronator drift. She demonstrates reasonable strength in bilateral biceps and triceps, deltoids. She has weakness in bilateral iliopsoas grade 4+, quadriceps appear to be 5/5, anterior tibialis the patient demonstrates 5- strength. Sensory is intact to light touch in all four extremities. Gait deferred. The patient was fully cooperative during the examination stating that lethargy was limiting her ability to fully cooperate. ASSESSMENT: 1. Acute ischemic stroke of the left frontoparietal temporal region while on baby aspirin at home with significant stroke risk factors. PLAN: 1. Increase aspirin to 325 mg by mouth daily. 2. Start atorvastatin 40 mg by mouth daily. 3. Maintain systolic blood pressures 140-180, hold antihypertensive medications for the next 48-72 hours. 4. Start telemetry monitoring. 5. Patient should be moved to the progressive care unit. 6. Physical therapy (PT)/occupational therapy (OT) recommendation made. 7. Continue treatment for UTI as per primary care.
[2017-08-24 11:40] VITALS: BP 109/52
[2017-08-24] MEDS: APIXABAN 5 MG TAB (ELIQUIS) PO SCH ×2 (13:29→20:55)
[2017-08-24] MEDS: CARVedilol 3.125 MG TAB PO SCH ×2 (13:30→20:55)
[2017-08-24 13:46] LABS: MAGNESIUM LEVEL 1.8 MG/DL (1.8-2.4)
--- NOTE | 2017-08-24 14:24 | IPNPDOC ---
Subjective Date Seen The patient was seen on 08/24/17. Subjective Chief Complaint/HPI The patient is a 81-year-old female admitted with a reason for visit of Dehydration, Uti, acute CVA. Events since last encounter Patient states she is feeling as usual today. She is complaining of some pain in her hip. She does not have any other acute concerns today. Nursing mentioned that patient had 3 pulses on telemetry monitoring overnight. Constitutional: Denies: Chills Pulmonary: Denies: Dyspnea Cardiovascular: Denies: Chest Pain Gastrointestinal: Denies: Abdominal Pain Objective Physical Examination General Exam: Positive: Alert, Cooperative, No Acute Distress Chest Exam: Positive: Clear to auscultation, Normal air movement, Negative: Rales, Rhonchi, Wheezing Heart Exam: Positive: Rate Normal, Regular Rhythm, Normal S1, Normal S2, Negative: Gallops, Murmurs, Rubs Telemetry: Positive: Sinus Abdomen Exam: Positive: Normal bowel sounds, Soft, Negative: Tenderness, Hepatospenomegaly, Mass Extremity Exam: Negative: Edema Neuro Exam: Positive: Normal Speech (mumbled appears to have some difficulty finding words), Strength at 5/5 X4 ext, Sensation Intact Psych Exam: Positive: Mental status NL, Other (oriented to person, hospital, July) Assessment /Plan Problems (1) Acute CVA (cerebrovascular accident) Status: Acute Discussed With: Administrative Liaison Problem Text: 08/23: Brain MRI revealed acute CVA. Case was discussed with Dr. Tellez from neurology, neurology was consulted. Orders placed for aspirin 325 mg daily, atorvastatin 40 mg daily, PT/OT. (2) Paroxysmal atrial fibrillation Problem Text: 08/24: Patient with paroxysmal episodes of atrial fibrillation, sinus pause on telemetry. She will require further evaluation with echocardiogram, carotid ultrasound. Aspirin changed to 81 mg daily. Started on Maxipen 5 mg by mouth twice a day, ramipril 2.5 mg by mouth twice a day, Coreg 3.125 mg by mouth twice a day (3) Hypomagnesemia Problem Text: 08/24: Patient with magnesium of 1.6 overnight, given a one-time dose of 400 mg magnesium oxide, started on daily magnesium oxide 400 mg twice a day (4) Urinary tract infection Problem Text: 08/23: Patient currently being treated for urinary tract infection, ceftriaxone started on 08/23. Follow-up results from urine culture when available (5) Altered mental status Problem Text: 08/23: Improving, likely secondary to urinary tract infection and acute CVA (6) Type 2 diabetes mellitus Problem Text: 08/23: Stable, continue sliding scale insulin (7) COPD (chronic obstructive pulmonary disease) Problem Text: 08/23: Stable, continue nebulizers as needed (8) Diastolic congestive heart failure Problem Text: 08/23: Stable, order for aspirin increased to 325 mg due to acute CVA (9) Hypertension Problem Text: 08/23: Stable, continue current medications (10) Osteoarthritis Problem Text: 08/24: Oxycodone restarted at dose of 5 mg by mouth every 6 hours when necessary 08/23: Continue to hold oxycodone due to altered mental status (11) Depression Problem Text: 08/23: Continue to hold escitalopram due to altered mental status (12) Insomnia Problem Text: 08/23: Continue to hold Ambien due to altered mental status Plan/VTE VTE Prophylaxis Ordered?: Yes Plan Therapy: PT, OT VS, I&O, 24H, Fishbone Vital Signs/I&O Vital Signs Date Time Temp Pulse Resp B/P (MAP) Pulse Ox O2 Delivery O2 Flow Rate FiO2 08/24/17 13:30 80 134/74 08/24/17 11:40 97.0 26 91 Nasal Cannula 2.0 I&O- Last 24 Hours up to 6 AM 08/25/17 06:00 Intake Total 120 ml Balance 120 ml Laboratory Data 24H LABS Laboratory Tests 2 08/23/17 16:57: Bedside Glucose (Misc Panel) 114H 08/23/17 20:47: Bedside Glucose (Misc Panel) 129H 08/23/17 23:05: Magnesium Level 1.6L 08/24/17 04:44: Anion Gap 5L, Glomerular Filtration Rate > 60.0, Blood Urea Nitrogen 8, Creatinine 0.66, Sodium Level 136, Potassium Level 3.7, Chloride Level 97L, Carbon Dioxide Level 34H, Calcium Level 7.9L 08/24/17 04:46: Immature Granulocyte % (Auto) 0.9H, White Blood Count 4.7, Red Blood Count 4.47 , Hemoglobin 14.4#, Hematocrit 42.5, Mean Corpuscular Volume 95.1, Mean Corpuscular Hemoglobin 32.2, Mean Corpuscular Hemoglobin Concent 33.9, Red Cell Distribution Width 15.4H, Platelet Count 173, Neutrophils (%) (Auto) 77.5H, Lymphocytes (%) (Auto) 12.6L, Monocytes (%) (Auto) 7.7H, Eosinophils (%) (Auto) 0.9, Basophils (%) (Auto) 0.4, Neutrophils # (Auto) 3.6, Lymphocytes # (Auto) 0.6L, Monocytes # (Auto) 0.4, Eosinophils # (Auto) 0.0, Basophils # (Auto) 0.0, Immature Granulocyte # (Auto) 0.0, Nucleated Red Blood Cells % (auto) 0.0 08/24/17 11:46: Bedside Glucose (Misc Panel) 96 08/24/17 13:04: Magnesium Level 1.8, Total Creatine Kinase 34, Creatine Kinase MB 3.0, Creatine Kinase MB Relative Index 8.82H, Troponin I 0.02 CBC/BMP Laboratory Tests 08/24/17 04:44 Calcium Level 7.9 L 08/24/17 04:46 Red Blood Count 4.47, Mean Corpuscular Volume 95.1, Mean Corpuscular Hemoglobin 32.2, Mean Corpuscular Hemoglobin Concent 33.9, Red Cell Distribution Width 15.4 H, Neutrophils (%) (Auto) 77.5 H, Lymphocytes (%) (Auto) 12.6 L, Monocytes (%) (Auto) 7.7 H, Eosinophils (%) (Auto) 0.9, Basophils (%) (Auto) 0.4, Neutrophils # (Auto) 3.6, Lymphocytes # (Auto) 0.6 L, Monocytes # (Auto) 0.4, Eosinophils # (Auto) 0.0, Basophils # (Auto) 0.0 Microbiology Microbiology 08/23/17 Blood Culture - Preliminary, Resulted No growth after 24 hours . All specim... 08/23/17 Urine Culture, Received Pending GME ATTESTATION GME ATTESTATION My faculty preceptor for this patient encounter was physically present during the encounter and was fully available. All aspects of the patient interview, examination, medical decision making process, and medical care plan development were reviewed and approved by the faculty preceptor. The faculty preceptor is aware and concurs with the plan as stated in the body of this note and will attest to such by his/her cosignature. REINA LUCIA DO Aug 24, 2017 14:24
[2017-08-24 16:00] VITALS: BP 142/64
--- NOTE | 2017-08-24 16:16 | REP ---
Clinical: Acute cerebrovascular accident. Technique: Real time hoffman scale and color Doppler evaluation using linear high frequency transducer. Findings: Extensive mixed atheromatous plaque is noted throughout the visualized right common carotid artery to the carotid bulb and proximal internal carotid artery. Color images demonstrate turbulent flow while Doppler interrogation demonstrates biphasic arterial wave forms with spectral broadening and increased velocities. Moderate atheromatous plaque is noted through the visualized left common carotid artery extending to the carotid bulb and proximal internal carotid artery. Color evaluation demonstrates relatively normal laminar flow with normal arterial wave patterns and velocities. RIGHT (cm/s) LEFT (cm/s) ICA peak systolic velocity 211.8 42.4 ICA diastolic velocity 47.3 7.3 ECA peak systolic velocity 304.4 82.3 CCA peak systolic velocity 82.5 64.7 ICA/CCA ratio 2.57 0.66 Impression: Bilateral atheromatous plaquing (right greater than left). Based on set standards, narrowing through the right carotid bulb and internal carotid artery approaches the 70% range while narrowing through the left carotid bulb and internal carotid artery is in the less than 50% range. Signed by Uri Pacheco MD 08/24/2017 04:08 P
--- NOTE | 2017-08-24 18:06 | ECGEPIP ---
Stationary ECG Study [facility] Test Date: 2017-08-23 Pat Name: TAWANNA CAMPBELL Department: Room: [place] [address] Gender: F Home Office Claims Examiner: MAGDY : 1935 Requested By: Ishmael Martinez Order Number: [id number] Reading MD: Arcadio Nguyen Measurements Intervals [place] Rate: 88 P: ND: 0 QRS: 94 QRSD: 106 T: 29 QT: 400 QTc: 485 Interpretive Statements Atrial flutter with variable conduction; fusion beats seen Right axis deviation Anterior WA, age indeterminate Nonspecific ST-T wave abnormalities Compared to prior tracing of 08/17/2013, atrial fibrillation is new and repolarization abnormalities have increased Electronically Signed On 08-24-2017 18:05:50 EST by Arcadio Nguyen
[2017-08-24 20:10] VITALS: BP 160/78
[2017-08-24] MEDS: RAMIPRIL 1.25 MG CAP PO SCH (20:54)
[2017-08-25] VITALS (7 sets, daily range): BP systolic 127–148; BP diastolic 58–92
[2017-08-25] MEDS: oxyCODONE 5MG TAB PO PRN ×4 (00:32→20:48)
[2017-08-25] MEDS: NS 1,000 ML IV SCH (00:32)
[2017-08-25 05:42] LABS: MEAN CORPUSCULAR HEMOGLOBIN 32.2 pg (27.0-33.0); MEAN CORPUSCULAR HGB CONC 33.2 g/dl (32.0-36.5); MEAN CORPUSCULAR VOLUME 96.9 fl (80.0-96.0); PLATELET COUNT, AUTOMATED 198 10^3/uL (150-450); RED CELL DISTRIBUTION WIDTH 15.9 % (11.5-14.5); WHITE BLOOD COUNT 6.5 10^3/uL (4.0-10.0)
[2017-08-25 05:55] LABS: ANION GAP 7 MEQ/L (8-16); BLOOD UREA NITROGEN 6 MG/DL (7-18); CALCIUM LEVEL 8.4 MG/DL (8.8-10.2); CARBON DIOXIDE LEVEL 28 MEQ/L (21-32); CHLORIDE LEVEL 102 MEQ/L (98-107); CREATININE FOR GFR 0.53 MG/DL (0.55-1.02); GLOMERULAR FILTRATION RATE > 60.0 (>32); GLUCOSE, FASTING 111 MG/DL (83-110); MAGNESIUM LEVEL 1.8 MG/DL (1.8-2.4); POTASSIUM SERUM 3.7 MEQ/L (3.5-5.1); SODIUM LEVEL 137 MEQ/L (136-145)
[2017-08-25] MEDS ORDERED: FUROSEMIDE 40 MG/4 ML VIAL (J1940) IV ONE (06:00)
[2017-08-25] MEDS: HumaLOG INSULIN (NovoLOG) PER UNIT SC SCH ×4 (07:48→20:46)
[2017-08-25] MEDS: APIXABAN 5 MG TAB (ELIQUIS) PO SCH ×2 (07:56→20:49)
[2017-08-25] MEDS: CEFTRIAXONE SOD 1 GM in APPROPRIATE DILUENT 1 EA IV SCH (07:56)
[2017-08-25] MEDS: PANTOPRAZOLE 40MG TAB (PROTONIX) PO SCH (07:56)
[2017-08-25] MEDS: clonazePAM 1 MG TAB PO SCH ×2 (07:57→20:47)
[2017-08-25] MEDS: GABAPENTIN 400 MG CAP PO SCH ×2 (07:57→20:47)
[2017-08-25] MEDS: MAGNESIUM OXIDE 400 MG TAB (MAG-OX) PO SCH ×3 (07:57→20:49)
[2017-08-25] MEDS: RAMIPRIL 1.25 MG CAP PO SCH ×2 (07:57→20:48)
[2017-08-25] MEDS: ASPIRIN 81 MG ENTERIC TAB PO SCH (07:57)
[2017-08-25] MEDS: MULTIVITAMINS/MINERALS THERAP 1 TAB PO SCH (07:57)
[2017-08-25] MEDS: ATORVASTATIN 20 MG TAB PO SCH (07:57)
[2017-08-25] MEDS: CARVedilol 3.125 MG TAB PO SCH ×2 (07:58→20:49)
--- NOTE | 2017-08-25 09:59 | IPNPDOC ---
Subjective Date Seen The patient was seen on 08/25/17. Subjective Chief Complaint/HPI The patient is a 81-year-old female admitted with a reason for visit of Dehydration, Uti. Constitutional: Denies: Chills, Fever Eyes: Denies: Pain ENT: Denies: Head Aches Skin: Denies: Rash Pulmonary: Denies: Dyspnea, Cough Cardiovascular: Denies: Chest Pain Gastrointestinal: Denies: Nausea, Vomiting Objective Physical Examination General Exam: Positive: No Acute Distress, Negative: Alert, Cooperative (minimally responsive) Eye Exam: Positive: Conjunctiva & lids normal ENT Exam: Positive: Atraumatic Neck Exam: Negative: Lymphadenopathy Chest Exam: Positive: Clear to auscultation (initial rhonchi that cleared up on patient's cough) Heart Exam: Positive: Rate Normal, Normal S1, Normal S2 Telemetry: Positive: Sinus Abdomen Exam: Positive: Normal bowel sounds, Soft, Negative: Tenderness Extremity Exam: Positive: Normal pulses, Negative: Cyanosis, Edema, Tenderness, Swelling Skin Exam: Positive: Nl turgor and temperature Neuro Exam: Negative: Normal Speech (mumbled), Strength at 5/5 X4 ext, Normal Tone (weak hand crop supervisor) Psych Exam: Negative: Mental status NL (minimally interactive, eyes closed in bed, responds with 1-2 words intermittently), Memory Intact, Oriented x 3 (is NOT oriented to self, place, or year) Assessment /Plan Problems (1) Ventricular tachycardia Status: Acute Problem Text: 08/25 K 3.7, Mg 1.8-gave 40 po and increased MOX 400 BID to 800 BID 08/24 TTE P 08/24 qhs asx NSVT while sleeping 08/24 CPK 34, T-I 0.02 (2) Diastolic congestive heart failure Problem Text: 08/25 IVF stopped 2 mild decomp (up 1.8L since admit)-given fur 40 IV x 1 (3) Paroxysmal atrial fibrillation Problem Text: 08/24: Patient with newly diagnosed paroxysmal episodes of atrial fibrillation 70-100, sinus pause on telemetry, aspirin changed to 81 mg daily. Started on apixiban 5 BID, ramipril 2.5 mg by mouth twice a day, carvedilol 3.125 mg by mouth twice a day. She will require further evaluation with echocardiogram, carotid ultrasound. (4) Acute CVA (cerebrovascular accident) Status: Acute Discussed With: Stock Tracer Problem Text: 08/23: Brain MRI revealed acute CVA. Case was discussed with Dr. Tellez from neurology, neurology was consulted. Orders placed for aspirin 325 mg daily, atorvastatin 40 mg daily, PT/OT. (5) Urinary tract infection Problem Text: D3 ceftriaxone (08/26 start doxy for 4D for complicated UTI) 08/25 changed to doxy for 08/26 08/23 UCX S. epi (6) Type 2 diabetes mellitus Problem Text: 08/23: Stable, continue sliding scale insulin (7) COPD (chronic obstructive pulmonary disease) Problem Text: 08/23: Stable, continue nebulizers as needed (8) Hypertension Problem Text: 08/23: Stable, continue current medications (9) Osteoarthritis Problem Text: 08/24: Oxycodone restarted at dose of 5 mg by mouth every 6 hours when necessary 08/23: Continue to hold oxycodone due to altered mental status (10) Depression Problem Text: 08/23: Continue to hold escitalopram due to altered mental status (11) Physical deconditioning Status: Chronic Problem Text: Dr. Valdivia, PCP, favors subacute vs SNF 08/25 has not yet participated c PT Plan/VTE VTE Prophylaxis Ordered?: Yes Plan Therapy: PT, OT VS, I&O, 24H, Fishbone Vital Signs/I&O Vital Signs Date Time Temp Pulse Resp B/P (MAP) Pulse Ox O2 Delivery O2 Flow Rate FiO2 08/25/17 08:28 22 08/25/17 08:00 97.1 73 144/72 (96) 97 Nasal Cannula 2.0 I&O- Last 24 Hours up to 6 AM 08/26/17 06:00 Intake Total 0 ml Output Total 1100 ml Balance -1100 ml Laboratory Data 24H LABS Laboratory Tests 2 08/24/17 11:46: Bedside Glucose (Misc Panel) 96 08/24/17 13:04: Magnesium Level 1.8, Total Creatine Kinase 34, Creatine Kinase MB 3.0, Creatine Kinase MB Relative Index 8.82H, Troponin I 0.02 08/24/17 16:29: Bedside Glucose (Misc Panel) 133H 08/24/17 20:46: Bedside Glucose (Misc Panel) 109 08/25/17 05:04: Nucleated Red Blood Cells % (auto) 0.0, Anion Gap 7L, Glomerular Filtration Rate > 60.0, Blood Urea Nitrogen 6L, Creatinine 0.53L, Sodium Level 137, Potassium Level 3.7, Chloride Level 102, Carbon Dioxide Level 28, Calcium Level 8.4L, Magnesium Level 1.8 CBC/BMP Laboratory Tests 08/25/17 05:04 Red Blood Count 4.85, Mean Corpuscular Volume 96.9 H, Mean Corpuscular Hemoglobin 32.2, Mean Corpuscular Hemoglobin Concent 33.2, Red Cell Distribution Width 15.9 H, Calcium Level 8.4 L Microbiology Microbiology 08/23/17 Blood Culture - Preliminary, Resulted No Growth after 48 hours. All Specime... 08/23/17 Urine Culture - Final, Complete Staphylococcus Epidermidis Suraj Valdivia M.D. Aug 25, 2017 09:59
[2017-08-25] MEDS ORDERED: POTASSIUM CHLORIDE 10 MEQ SR TABLET PO ONE (10:15)
[2017-08-25 18:27] LABS: ALBUMIN 2.5 GM/DL (3.2-5.2); ANION GAP 8 MEQ/L (8-16); BLOOD UREA NITROGEN 6 MG/DL (7-18); CALCIUM LEVEL 8.5 MG/DL (8.8-10.2); CARBON DIOXIDE LEVEL 34 MEQ/L (21-32); CHLORIDE LEVEL 95 MEQ/L (98-107); CREATININE FOR GFR 0.63 MG/DL (0.55-1.02); GLOMERULAR FILTRATION RATE > 60.0 (>32); GLUCOSE, FASTING 130 MG/DL (83-110); MAGNESIUM LEVEL 1.7 MG/DL (1.8-2.4); PHOSPHORUS LEVEL 2.9 MG/DL (2.5-4.9); POTASSIUM SERUM 4.1 MEQ/L (3.5-5.1); SODIUM LEVEL 137 MEQ/L (136-145)
[2017-08-26] MEDS ORDERED: CARVedilol 3.125 MG TAB PO ONE (02:30)
[2017-08-26 04:00] VITALS: BP 124/58
[2017-08-26] MEDS: oxyCODONE 5MG TAB PO PRN ×3 (05:04→21:40)
[2017-08-26 05:34] LABS: MEAN CORPUSCULAR HEMOGLOBIN 32.1 pg (27.0-33.0); MEAN CORPUSCULAR HGB CONC 33.9 g/dl (32.0-36.5); MEAN CORPUSCULAR VOLUME 94.8 fl (80.0-96.0); PLATELET COUNT, AUTOMATED 200 10^3/uL (150-450); RED CELL DISTRIBUTION WIDTH 15.7 % (11.5-14.5); WHITE BLOOD COUNT 7.7 10^3/uL (4.0-10.0)
--- NOTE | 2017-08-26 05:41 | ECHO ---
DATE OF PROCEDURE: 08/25/2017 REFERRING PHYSICIAN: Dr. Ishmael Martinez. INDICATION: Acute stroke, atrial flutter. HEIGHT: 62 inches. WEIGHT: 129 pounds. 2D MEASUREMENTS: Aortic root: 3.1 cm Ascending aorta: 2.7 cm Left atrium: 4.2 cm Ventricular septum: 1.21 cm Posterior wall: 1.05 cm Left ventricle diastole: 3.4 cm Left ventricle systole: 1.9 cm Right ventricle: 3.7 cm Inferior vena cava: 1.6 cm (greater than 50% respiratory variation). DOPPLER MEASUREMENTS: Aortic valve velocity: 114 cm/s LVOT velocity: 111 cm/s LVOT VTI: 19.1 cm Mitral E velocity: 143 cm/s Mitral deacceleration time: 120 ms Mild tricuspid regurgitation. Estimated right ventricular systolic pressure 35 mmHg by pulmonary acceleration time method. Mild pulmonic regurgitation. Pulmonary artery systolic pressure 38 mmHg by pulmonary acceleration time method. MITRAL ANNULAR TISSUE DOPPLER: E-prime lateral: 11.2 cm/s E-prime septal: 5.95 cm/s DESCRIPTION: Rhythm was atrial flutter with controlled ventricular response. This was a moderately technically difficult echocardiogram. Occasional PVCs. No pericardial effusion. This was a 2D, M-mode, color flow Doppler and pulsed wave Doppler examination and included mitral annular tissue Doppler. CONCLUSIONS: 1. Hyperdynamic left ventricular systolic function. LVEF 75% by visual estimate. No regional wall motion abnormalities of the left ventricle. Normal left ventricle size and wall thicknesses. 2. Mild left atrial dilatation. 3. Suggestive of mild elevation of pulmonary artery systolic pressure and estimated right ventricle systolic pressure. Normal right ventricle size and systolic function. Central venous pressure estimated to be in the normal range of 5-10 mmHg. 4. Severe mitral annular calcification. No mitral regurgitation. No mitral stenosis. 5. Mild aortic valve sclerosis of a 3-cusp aortic valve.
[2017-08-26 05:52] LABS: ANION GAP 7 MEQ/L (8-16); BLOOD UREA NITROGEN 8 MG/DL (7-18); CALCIUM LEVEL 8.5 MG/DL (8.8-10.2); CARBON DIOXIDE LEVEL 33 MEQ/L (21-32); CHLORIDE LEVEL 97 MEQ/L (98-107); CREATININE FOR GFR 0.63 MG/DL (0.55-1.02); GLOMERULAR FILTRATION RATE > 60.0 (>32); GLUCOSE, FASTING 105 MG/DL (83-110); MAGNESIUM LEVEL 1.7 MG/DL (1.8-2.4); POTASSIUM SERUM 3.5 MEQ/L (3.5-5.1); SODIUM LEVEL 137 MEQ/L (136-145)
[2017-08-26 08:00] VITALS: BP 150/81
[2017-08-26] MEDS: HumaLOG INSULIN (NovoLOG) PER UNIT SC SCH ×4 (08:22→20:37)
[2017-08-26] MEDS: GABAPENTIN 400 MG CAP PO SCH ×2 (08:22→21:39)
[2017-08-26] MEDS: MAGNESIUM OXIDE 400 MG TAB (MAG-OX) PO SCH ×2 (08:23→21:38)
[2017-08-26] MEDS: ASPIRIN 81 MG ENTERIC TAB PO SCH (08:23)
[2017-08-26] MEDS: ATORVASTATIN 20 MG TAB PO SCH (08:23)
[2017-08-26] MEDS: clonazePAM 1 MG TAB PO SCH ×2 (08:23→21:40)
[2017-08-26] MEDS: APIXABAN 5 MG TAB (ELIQUIS) PO SCH ×2 (08:23→21:39)
[2017-08-26] MEDS: RAMIPRIL 1.25 MG CAP PO SCH ×2 (08:23→21:39)
[2017-08-26] MEDS: PANTOPRAZOLE 40MG TAB (PROTONIX) PO SCH (08:24)
[2017-08-26] MEDS: CARVedilol 6.25 MG TAB PO SCH ×2 (08:24→21:40)
[2017-08-26] MEDS: MULTIVITAMINS/MINERALS THERAP 1 TAB PO SCH (08:24)
[2017-08-26] MEDS: DOXYCYCLINE HYCLATE 100 MG TAB PO SCH ×2 (08:25→21:40)
[2017-08-26] MEDS ORDERED: POTASSIUM CHLORIDE 10 MEQ SR TABLET PO ONE (08:30)
--- NOTE | 2017-08-26 10:57 | IPNPDOC ---
Subjective Date Seen The patient was seen on 08/26/17. Subjective Chief Complaint/HPI The patient is a 81-year-old female admitted with a reason for visit of Dehydration, Uti, acute CVA. Events since last encounter Patient was refusing physical therapy this morning and also did not want to eat breakfast. Patient is lethargic today as well as overnight. Patient just wanted to sleep this morning. Nursing asking if they can have an order for topical nystatin due to candidal infection around her buttock Constitutional: Denies: Chills, Fever, Night Sweats Pulmonary: Denies: Dyspnea Cardiovascular: Denies: Chest Pain Objective Physical Examination General Exam: Positive: Alert, No Acute Distress Chest Exam: Positive: Clear to auscultation, Normal air movement, Negative: Rales, Rhonchi, Wheezing Heart Exam: Positive: Rate Normal, Normal S1, Normal S2, Negative: Gallops, Murmurs, Rubs Telemetry: Positive: Atrial fibrillation (/A flutter) Abdomen Exam: Positive: Normal bowel sounds, Soft, Negative: Tenderness Extremity Exam: Negative: Edema, Tenderness, Swelling Psych Exam: Positive: Oriented x 3 (Patient oriented to person, place, and month, but not year. ) Assessment /Plan Assessment Patient is a 81 year old female who presented with mental status change originally though to be secondary to UTI and dehydration. Patient was found to have CVA on MRI and A-fib on telemetry. Problems (1) Acute CVA (cerebrovascular accident) Status: Acute Discussed With: Campus Supervisor Problem Text: 08/23: Brain MRI revealed acute CVA. Case was discussed with Dr. Tellez from neurology, neurology was consulted. Orders placed for aspirin 325 mg daily, atorvastatin 40 mg daily, PT/OT. (2) Physical deconditioning Status: Chronic Problem Text: 08/26: Patient refused to do any substantial PT this morning. PT says patient is not safe for home discharge. Order placed for PFS consult to assess for potential placement 08/25 has not yet participated c PT (3) Ventricular tachycardia Status: Acute Problem Text: 08/26: Has not had another episode since Saturday. K 3.5, was given 40 MEQ PO today. Mg is 1.7. Continue to monitor. 08/25 K 3.7, Mg 1.8-gave 40 po and increased MOX 400 BID to 800 BID 08/24 TTE P 08/24 qhs asx NSVT while sleeping 08/24 CPK 34, T-I 0.02 (4) Paroxysmal atrial fibrillation Problem Text: 08.26: Patient is still going in and out of A-fib/A flutter on telemetry. Carotid ultrasound showed 70% stenosis on the right and less than 50 % stenosis of the left. Echo showed: Hyperdynamic left ventricular systolic function. LVEF 75% by visual estimate. No regional wall motion abnormalities of the left ventricle. Normal left ventricle size and wall thicknesses. Mild left atrial dilatation. Suggestive of mild elevation of pulmonary artery systolic pressure and estimated right ventricle systolic pressure. Normal right ventricle size and systolic function. Central venous pressure estimated to be in the normal range of 5-10 mmHg. Severe mitral annular calcification. No mitral regurgitation. No mitral stenosis. Mild aortic valve sclerosis of a 3-cusp aortic valve. 08/24: Patient with newly diagnosed paroxysmal episodes of atrial fibrillation 70-100, sinus pause on telemetry, aspirin changed to 81 mg daily. Started on apixiban 5 BID, ramipril 2.5 mg by mouth twice a day, carvedilol 3.125 mg by mouth twice a day. She will require further evaluation with echocardiogram, carotid ultrasound. (5) Diastolic congestive heart failure Problem Text: 08/25 IVF stopped 2 mild decomp (up 1.8L since admit)-given fur 40 IV x 1 (6) Urinary tract infection Problem Text: 08/26: doxy is usually not a great choice for UTI since it is not excreted significantly into the urine. will repeat cath U/A today due to change in alertness. 08/26: 4 day course of Doxycycline started today and to be completed on 08/29. D3 ceftriaxone (08/26 start doxy for 4D for complicated UTI) 08/25 changed to doxy for 08/26 08/23 UCX S. epi (7) Type 2 diabetes mellitus Problem Text: 08/26: Stable. Continue on sliding scale insulin. 08/23: Stable, continue sliding scale insulin (8) COPD (chronic obstructive pulmonary disease) Problem Text: 08/26: Stable. Continue nebulizers as needed. 08/23: Stable, continue nebulizers as needed (9) Hypertension Problem Text: 08/26: Stable, continue current medications. 08/23: Stable, continue current medications (10) Osteoarthritis Problem Text: 08/24: Oxycodone restarted at dose of 5 mg by mouth every 6 hours when necessary 08/23: Continue to hold oxycodone due to altered mental status (11) Depression Problem Text: 08/23: Continue to hold escitalopram due to altered mental status Plan/VTE VTE Prophylaxis Ordered?: Yes Plan Therapy: PT, OT Disposition Due to patient's weakness, deconditioning she will likely require placement VS, I&O, 24H, Fishbone Vital Signs/I&O Vital Signs Date Time Temp Pulse Resp B/P (MAP) Pulse Ox O2 Delivery O2 Flow Rate FiO2 08/26/17 08:24 69 150/81 08/26/17 08:00 97.7 95 08/26/17 08:00 Nasal Cannula 2.0 08/26/17 08:00 17 I&O- Last 24 Hours up to 6 AM 08/27/17 06:00 Intake Total 0 ml Output Total 0 ml Balance 0 ml Laboratory Data 24H LABS Laboratory Tests 2 08/25/17 11:38: Bedside Glucose (Misc Panel) 137H 08/25/17 16:54: Bedside Glucose (Misc Panel) 121H 08/25/17 17:50: Blood Urea Nitrogen 6L, Creatinine 0.63, Sodium Level 137, Potassium Level 4.1, Chloride Level 95L, Carbon Dioxide Level 34H, Anion Gap 8, Glomerular Filtration Rate > 60.0, Calcium Level 8.5L, Phosphorus Level 2.9, Magnesium Level 1.7L, Troponin I 0.04#, Albumin 2.5L 08/25/17 20:41: Bedside Glucose (Misc Panel) 106 08/26/17 05:18: Nucleated Red Blood Cells % (auto) 0.0, Anion Gap 7L, Glomerular Filtration Rate > 60.0, Blood Urea Nitrogen 8, Creatinine 0.63, Sodium Level 137, Potassium Level 3.5, Chloride Level 97L, Carbon Dioxide Level 33H, Calcium Level 8.5L, Magnesium Level 1.7L CBC/BMP Laboratory Tests 08/25/17 17:50 Anion Gap 8 08/26/17 05:18 Red Blood Count 5.04, Mean Corpuscular Volume 94.8, Mean Corpuscular Hemoglobin 32.1, Mean Corpuscular Hemoglobin Concent 33.9, Red Cell Distribution Width 15.7 H, Calcium Level 8.5 L Microbiology Microbiology 08/23/17 Blood Culture - Preliminary, Resulted No Growth after 72 hours. All specime... 08/23/17 Urine Culture - Final, Complete Staphylococcus Epidermidis GME ATTESTATION GME ATTESTATION My faculty preceptor for this patient encounter was physically present during the encounter and was fully available. All aspects of the patient interview, examination, medical decision making process, and medical care plan development were reviewed and approved by the faculty preceptor. The faculty preceptor is aware and concurs with the plan as stated in the body of this note and will attest to such by his/her cosignature. REINA LUCIA DO Aug 26, 2017 10:57 Wilder Rushing MD Aug 26, 2017 13:22
[2017-08-26 11:58] VITALS: BP 95/52
[2017-08-26] MEDS: NYSTATIN CREAM 15 GM EXT SCH ×2 (12:11→21:40)
[2017-08-26 16:00] VITALS: BP 114/56
[2017-08-26] MEDS: IPRATROPIUM 0.5MG/ALBUTEROL 2.5MG INH SOL UD 3ML (DUONEB)(J7620) NEB PRN (18:00)
[2017-08-26] MEDS ORDERED: NS 1,000 ML IV SCH (19:30)
[2017-08-26 20:00] VITALS: BP 142/65
[2017-08-27] VITALS: BP 133/69
[2017-08-27 04:00] VITALS: BP 135/60
[2017-08-27] MEDS: oxyCODONE 5MG TAB PO PRN (04:11)
[2017-08-27 06:09] LABS: MEAN CORPUSCULAR HEMOGLOBIN 32.5 pg (27.0-33.0); MEAN CORPUSCULAR HGB CONC 33.6 g/dl (32.0-36.5); PLATELET COUNT, AUTOMATED 169 10^3/uL (150-450); RED CELL DISTRIBUTION WIDTH 15.9 % (11.5-14.5); WHITE BLOOD COUNT 6.6 10^3/uL (4.0-10.0)
[2017-08-27 06:27] LABS: ANION GAP 7 MEQ/L (8-16); BLOOD UREA NITROGEN 13 MG/DL (7-18); CALCIUM LEVEL 8.8 MG/DL (8.8-10.2); CARBON DIOXIDE LEVEL 32 MEQ/L (21-32); CHLORIDE LEVEL 98 MEQ/L (98-107); CREATININE FOR GFR 0.68 MG/DL (0.55-1.02); GLOMERULAR FILTRATION RATE > 60.0 (>32); GLUCOSE, FASTING 114 MG/DL (83-110); POTASSIUM SERUM 4.3 MEQ/L (3.5-5.1); SODIUM LEVEL 137 MEQ/L (136-145)
[2017-08-27] MEDS: HumaLOG INSULIN (NovoLOG) PER UNIT SC SCH ×4 (07:30→21:00)
[2017-08-27 07:33] VITALS: BP 139/63
--- NOTE | 2017-08-27 08:33 | REP ---
Clinical: Shortness of breath. Technique: AP and lateral views. Comparison: 08/23/2017. Findings: Left lower lobe consolidation and small pleural effusion suggested along with trace right basilar atelectasis. This time and cardiac silhouette are stable. No pneumothorax. Underlying chronic interstitial changes noted. Skeletal structures demonstrate degenerative changes. Impression: Left lower lobe consolidation/atelectasis and small pleural effusion. Trace right basilar atelectasis. Signed by Uri Pacheco MD 08/27/2017 08:24 A
[2017-08-27] MEDS: GABAPENTIN 400 MG CAP PO SCH ×2 (08:53→21:27)
[2017-08-27] MEDS: MAGNESIUM OXIDE 400 MG TAB (MAG-OX) PO SCH ×2 (08:53→21:27)
[2017-08-27] MEDS: ASPIRIN 81 MG ENTERIC TAB PO SCH (08:53)
[2017-08-27] MEDS: clonazePAM 1 MG TAB PO SCH ×2 (08:54→21:27)
[2017-08-27] MEDS: PANTOPRAZOLE 40MG TAB (PROTONIX) PO SCH (08:54)
[2017-08-27] MEDS: APIXABAN 5 MG TAB (ELIQUIS) PO SCH ×2 (08:54→21:27)
[2017-08-27] MEDS: RAMIPRIL 1.25 MG CAP PO SCH ×2 (08:54→21:34)
[2017-08-27] MEDS: CARVedilol 6.25 MG TAB PO SCH ×2 (08:54→21:26)
[2017-08-27] MEDS: NYSTATIN CREAM 15 GM EXT SCH ×2 (08:54→21:00)
[2017-08-27] MEDS: MULTIVITAMINS/MINERALS THERAP 1 TAB PO SCH (08:54)
[2017-08-27] MEDS: ATORVASTATIN 20 MG TAB PO SCH (08:54)
[2017-08-27] MEDS: DOXYCYCLINE HYCLATE 100 MG TAB PO SCH ×2 (08:54→21:27)
--- NOTE | 2017-08-27 10:51 | IPNPDOC ---
Subjective Date Seen The patient was seen on 08/27/17. Subjective Chief Complaint/HPI The patient is a 81-year-old female admitted with a reason for visit of Dehydration, Uti. Events since last encounter "tired" No other complaints Constitutional: Denies: Chills, Fever Pulmonary: Denies: Dyspnea, Cough Cardiovascular: Denies: Chest Pain, Palpitations, Orthopnea Gastrointestinal: Denies: Nausea, Vomiting, Abdominal Pain, Diarrhea, Constipation Objective Physical Examination General Exam: Positive: Alert, No Acute Distress Chest Exam: Positive: Clear to auscultation, Normal air movement, Negative: Rales, Rhonchi, Wheezing Heart Exam: Positive: Rate Normal, Normal S1, Normal S2, Negative: Gallops, Murmurs, Rubs Telemetry: Positive: Atrial fibrillation (A-fib/A-flutter with episodes of NSR. Had 2.8 second pause last 24 hours -asymptomatic) Abdomen Exam: Positive: Normal bowel sounds, Soft, Negative: Tenderness Extremity Exam: Negative: Edema, Tenderness, Swelling Psych Exam: Positive: Oriented x 3 (Patient oriented to person, place, and month, but not year. ) Assessment /Plan Problems (1) Acute CVA (cerebrovascular accident) Status: Acute Discussed With: Plastic Surgery Assistant Problem Text: 08/27- Brain MRI on admission revealed acute CVA. Eliquis started due to PAF. Per Neurology started aspirin 81 mg daily, atorvastatin 40 mg daily, PT/OT Carotid ultrasound showed 70% stenosis on the right and less than 50% stenosis of the left. Echo showed: Hyperdynamic left ventricular systolic function. LVEF 75% by visual estimate. No regional wall motion abnormalities of the left ventricle. Normal left ventricle size and wall thicknesses. Mild left atrial dilatation. Suggestive of mild elevation of pulmonary artery systolic pressure and estimated right ventricle systolic pressure. Normal right ventricle size and systolic function. Central venous pressure estimated to be in the normal range of 5-10 mmHg. Severe mitral annular calcification. No mitral regurgitation. No mitral stenosis. Mild aortic valve sclerosis of a 3-cusp aortic valve. (2) Paroxysmal atrial fibrillation Problem Text: 08.26: Patient with newly diagnosed paroxysmal episodes of atrial fibrillation. Patient is still going in and out of A-fib/A flutter on telemetry. Rate 68 - 90s last 24 hours. Had another 2.8 cm asymptomatic pause on tele on coreg 6.25 mg BID (Increased 08/26 due to HR 127) Continue Eliquis TSH normal Echo as below (3) Physical deconditioning Status: Chronic Problem Text: 08/26: Patient refused to do any substantial PT this morning. PT says patient is not safe for home discharge. Order placed for PFS consult to assess for potential placement 08/25 has not yet participated c PT (4) Ventricular tachycardia Status: Acute Problem Text: 08/26: Has not had another episode since Saturday. K 3.5, was given 40 MEQ PO today. Mg is 1.7. Continue to monitor. 08/25 K 3.7, Mg 1.8-gave 40 po and increased MOX 400 BID to 800 BID 08/24 TTE P 08/24 qhs asx NSVT while sleeping 08/24 CPK 34, T-I 0.02 (5) Diastolic congestive heart failure Problem Text: compensated (6) Urinary tract infection Problem Text: 08/26: doxy is usually not a great choice for UTI since it is not excreted significantly into the urine. will repeat cath U/A today due to change in alertness. 08/26: 4 day course of Doxycycline started today and to be completed on 08/29. D3 ceftriaxone (08/26 start doxy for 4D for complicated UTI) 08/25 changed to doxy for 08/26 08/23 UCX S. epi (7) Type 2 diabetes mellitus Problem Text: 08/26: Stable. Continue on sliding scale insulin. 08/23: Stable, continue sliding scale insulin (8) COPD (chronic obstructive pulmonary disease) Problem Text: 08/26: Stable. Continue nebulizers as needed. 08/23: Stable, continue nebulizers as needed (9) Hypertension Problem Text: 08/26: Stable, continue current medications. 08/23: Stable, continue current medications (10) Osteoarthritis Problem Text: 08/24: Oxycodone restarted at dose of 5 mg by mouth every 6 hours when necessary 08/23: Continue to hold oxycodone due to altered mental status (11) Depression Problem Text: 08/23: Continue to hold escitalopram due to altered mental status Plan/VTE VTE Prophylaxis Ordered?: Yes Plan Therapy: PT, OT Disposition monitor on tele x 24 hours to monitor rate and adjust meds if needed. VS, I&O, 24H, Fishbone Vital Signs/I&O Vital Signs Date Time Temp Pulse Resp B/P (MAP) Pulse Ox O2 Delivery O2 Flow Rate FiO2 08/27/17 08:54 78 08/27/17 08:54 139/63 08/27/17 07:33 98.0 17 97 Nasal Cannula 08/27/17 04:00 3.0 I&O- Last 24 Hours up to 6 AM 08/28/17 06:00 Intake Total 240 ml Output Total 0 ml Balance 240 ml Laboratory Data 24H LABS Laboratory Tests 2 08/26/17 11:32: Bedside Glucose (Misc Panel) 96 08/26/17 17:03: Bedside Glucose (Misc Panel) 94 08/26/17 20:28: Bedside Glucose (Misc Panel) 127H 08/27/17 05:47: Nucleated Red Blood Cells % (auto) 0.0, Anion Gap 7L, Glomerular Filtration Rate > 60.0, Blood Urea Nitrogen 13#, Creatinine 0.68, Sodium Level 137, Potassium Level 4.3#, Chloride Level 98, Carbon Dioxide Level 32, Calcium Level 8.8 CBC/BMP Laboratory Tests 08/27/17 05:47 Red Blood Count 4.64, Mean Corpuscular Volume 97.0 H, Mean Corpuscular Hemoglobin 32.5, Mean Corpuscular Hemoglobin Concent 33.6, Red Cell Distribution Width 15.9 H, Calcium Level 8.8 Microbiology Microbiology 08/23/17 Blood Culture - Preliminary, Resulted No Growth after 72 hours. All specime... 08/23/17 Urine Culture - Final, Complete Staphylococcus Epidermidis MARILU ALVARADO PA-C Aug 27, 2017 10:51
[2017-08-27 12:00] VITALS: BP 122/59
[2017-08-27 14:00] VITALS: BP 129/72
[2017-08-27 22:00] VITALS: BP 110/62
[2017-08-28] MEDS: oxyCODONE 5MG TAB PO PRN ×3 (00:12→18:05)
[2017-08-28 06:00] VITALS: BP 133/64
[2017-08-28 06:20] LABS: MEAN CORPUSCULAR HEMOGLOBIN 32.4 pg (27.0-33.0); MEAN CORPUSCULAR HGB CONC 32.9 g/dl (32.0-36.5); MEAN CORPUSCULAR VOLUME 98.5 fl (80.0-96.0); PLATELET COUNT, AUTOMATED 170 10^3/uL (150-450); RED CELL DISTRIBUTION WIDTH 15.9 % (11.5-14.5); WHITE BLOOD COUNT 7.5 10^3/uL (4.0-10.0)
[2017-08-28 06:41] LABS: ANION GAP 2 MEQ/L (8-16); BLOOD UREA NITROGEN 12 MG/DL (7-18); CALCIUM LEVEL 8.1 MG/DL (8.8-10.2); CARBON DIOXIDE LEVEL 37 MEQ/L (21-32); CHLORIDE LEVEL 99 MEQ/L (98-107); GLOMERULAR FILTRATION RATE > 60.0 (>32); GLUCOSE, FASTING 129 MG/DL (83-110); POTASSIUM SERUM 4.2 MEQ/L (3.5-5.1); SODIUM LEVEL 138 MEQ/L (136-145)
[2017-08-28] MEDS: HumaLOG INSULIN (NovoLOG) PER UNIT SC SCH ×4 (07:30→21:00)
[2017-08-28] MEDS: ATORVASTATIN 20 MG TAB PO SCH (09:03)
[2017-08-28] MEDS: MAGNESIUM OXIDE 400 MG TAB (MAG-OX) PO SCH ×2 (09:04→22:03)
[2017-08-28] MEDS: RAMIPRIL 1.25 MG CAP PO SCH ×2 (09:06→22:00)
[2017-08-28] MEDS: PANTOPRAZOLE 40MG TAB (PROTONIX) PO SCH (09:07)
[2017-08-28] MEDS: MULTIVITAMINS/MINERALS THERAP 1 TAB PO SCH (09:07)
[2017-08-28] MEDS: APIXABAN 5 MG TAB (ELIQUIS) PO SCH (09:07)
[2017-08-28] MEDS: GABAPENTIN 400 MG CAP PO SCH ×2 (09:07→22:00)
[2017-08-28] MEDS: VITAMIN D 50,000 UNITS CAPSULE (ERGOCALCIFEROL 1.25MG) PO SCH (09:08)
[2017-08-28] MEDS: CARVedilol 6.25 MG TAB PO SCH ×2 (09:08→22:02)
[2017-08-28] MEDS: DOXYCYCLINE HYCLATE 100 MG TAB PO SCH ×2 (09:08→22:01)
[2017-08-28] MEDS: ASPIRIN 81 MG ENTERIC TAB PO SCH (09:08)
[2017-08-28] MEDS: clonazePAM 1 MG TAB PO SCH ×2 (09:08→22:00)
[2017-08-28] MEDS: NYSTATIN CREAM 15 GM EXT SCH ×2 (09:09→22:04)
--- NOTE | 2017-08-28 11:16 | IPNPDOC ---
Subjective Date Seen The patient was seen on 08/28/17. Subjective Chief Complaint/HPI The patient is a 81-year-old female admitted with a reason for visit of Dehydration, Uti. Events since last encounter c/o pain "everywhere you touch" Constitutional: Denies: Chills, Fever Pulmonary: Reports: Cough, Denies: Dyspnea Cardiovascular: Denies: Chest Pain, Palpitations, Orthopnea Gastrointestinal: Denies: Nausea, Vomiting, Abdominal Pain, Diarrhea, Constipation Objective Physical Examination General Exam: Positive: Alert, No Acute Distress Chest Exam: Positive: Clear to auscultation, Rales (course rhonchi BL), Rhonchi , Negative: Wheezing Heart Exam: Positive: Rate Normal, Normal S1, Normal S2, Negative: Gallops, Murmurs, Rubs Telemetry: Positive: Atrial fibrillation (Afib and NSR rate 70s-80s last 24 hours. No pauses last 24 hours.) Abdomen Exam: Positive: Normal bowel sounds, Soft, Negative: Tenderness Extremity Exam: Negative: Edema, Tenderness, Swelling Assessment /Plan Problems (1) Paroxysmal atrial fibrillation Problem Text: 08/28 : Patient with newly diagnosed paroxysmal episodes of atrial fibrillation. Patient is still going in and out of A-fib/A flutter on telemetry with NSR most of the time. 70s-80s last 24 hours. on coreg 6.25 mg BID (Increased 08/26 due to HR 127). Age 81, weight <60kg so she should be on low dose eliquis. Continue Eliquis, dose adjusted for age and weight TSH normal Echo as below (2) Diastolic congestive heart failure Status: Chronic Problem Text: pleural effusion on CXR with infiltrate/atelectasis. Restart usual HD Lasix and monitor electrolytes (3) COPD (chronic obstructive pulmonary disease) Problem Text: 08/28 - Rattling BS on exam today. Oxygen saturations in 90s. CXR 08/27 showed LLL consolidation/atelectasis with small pleural effusion and right atelectasis. Will d/c "q2hr prn" duoneb, change to routine qid, with q2 hr prn albuterol neb.(JR) She is on doxy. allergic to PCN and cross-reactors. She is afebrile with normal WBC and no significant resp distress to suggest HAP - Encourage IS and OOB CXR findings may represent more CHF than pneumonia. Give Lasix and monitor resp status. (4) Acute CVA (cerebrovascular accident) Status: Acute Discussed With: Medical Office Receptionist Problem Text: 08/27- Brain MRI on admission revealed acute CVA. Eliquis started due to PAF. Per Neurology started aspirin 81 mg daily, atorvastatin 40 mg daily, PT/OT Carotid ultrasound showed 70% stenosis on the right and less than 50% stenosis of the left. Echo showed: Hyperdynamic left ventricular systolic function. LVEF 75% by visual estimate. No regional wall motion abnormalities of the left ventricle. Normal left ventricle size and wall thicknesses. Mild left atrial dilatation. Suggestive of mild elevation of pulmonary artery systolic pressure and estimated right ventricle systolic pressure. Normal right ventricle size and systolic function. Central venous pressure estimated to be in the normal range of 5-10 mmHg. Severe mitral annular calcification. No mitral regurgitation. No mitral stenosis. Mild aortic valve sclerosis of a 3-cusp aortic valve. (5) Physical deconditioning Status: Chronic Problem Text: 08/26: Patient refused to do any substantial PT this morning. PT says patient is not safe for home discharge. Order placed for PFS consult to assess for potential placement 08/25 has not yet participated c PT (6) Ventricular tachycardia Status: Acute Problem Text: 08/26: Has not had another episode since Saturday. K 3.5, was given 40 MEQ PO today. Mg is 1.7. Continue to monitor. 08/25 K 3.7, Mg 1.8-gave 40 po and increased MOX 400 BID to 800 BID 08/24 TTE P 08/24 qhs asx NSVT while sleeping 08/24 CPK 34, T-I 0.02 (7) Urinary tract infection Problem Text: 08/26: doxy is usually not a great choice for UTI since it is not excreted significantly into the urine. will repeat cath U/A today due to change in alertness. 08/26: 4 day course of Doxycycline started today and to be completed on 08/29. D3 ceftriaxone (08/26 start doxy for 4D for complicated UTI) 08/25 changed to doxy for 08/26 08/23 UCX S. epi (8) Type 2 diabetes mellitus Problem Text: 08/26: Stable. Continue on sliding scale insulin. 08/23: Stable, continue sliding scale insulin (9) Hypertension Problem Text: 08/26: Stable, continue current medications. 08/23: Stable, continue current medications (10) Osteoarthritis Problem Text: 08/24: Oxycodone restarted at dose of 5 mg by mouth every 6 hours when necessary 08/23: Continue to hold oxycodone due to altered mental status (11) Depression Problem Text: 08/23: Continue to hold escitalopram due to altered mental status Plan/VTE VTE Prophylaxis Ordered?: Yes Plan Therapy: PT, OT VS, I&O, 24H, Fishbone Vital Signs/I&O Vital Signs Date Time Temp Pulse Resp B/P (MAP) Pulse Ox O2 Delivery O2 Flow Rate FiO2 08/28/17 10:38 16 08/28/17 09:08 100 08/28/17 09:06 132/64 08/28/17 06:00 97.8 94 Nasal Cannula 3.0 I&O- Last 24 Hours up to 6 AM 08/29/17 06:00 Intake Total 120 ml Output Total 0 ml Balance 120 ml Laboratory Data 24H LABS Laboratory Tests 2 08/27/17 11:19: Magnesium Level 2.1 08/27/17 12:23: Bedside Glucose (Misc Panel) 196H 08/27/17 16:49: Bedside Glucose (Misc Panel) 125H 08/27/17 20:53: Bedside Glucose (Misc Panel) 146H 08/28/17 05:31: Nucleated Red Blood Cells % (auto) 0.0, Anion Gap 2L, Glomerular Filtration Rate > 60.0, Blood Urea Nitrogen 12, Creatinine 0.60, Sodium Level 138, Potassium Level 4.2, Chloride Level 99, Carbon Dioxide Level 37H, Calcium Level 8.1L CBC/BMP Laboratory Tests 08/28/17 05:31 Red Blood Count 4.75, Mean Corpuscular Volume 98.5 H, Mean Corpuscular Hemoglobin 32.4, Mean Corpuscular Hemoglobin Concent 32.9, Red Cell Distribution Width 15.9 H, Calcium Level 8.1 L Microbiology Microbiology 08/23/17 Blood Culture - Final, Complete NO GROWTH AFTER 5 DAYS 08/23/17 Urine Culture - Final, Complete Staphylococcus Epidermidis MARILU ALVARADO PA-C Aug 28, 2017 11:16 Wilder Rushing MD Aug 28, 2017 11:37
[2017-08-28] MEDS ORDERED: ALBUTEROL SULFATE 2.5 MG/0.5 ML INH NEB SOLN NEB PRN (11:30)
[2017-08-28] MEDS: FUROSEMIDE 40 MG/4 ML VIAL (J1940) IV SCH ×2 (12:30→18:05)
[2017-08-28] MEDS: IPRATROPIUM 0.5MG/ALBUTEROL 2.5MG INH SOL UD 3ML (DUONEB)(J7620) NEB SCH ×2 (13:06→21:21)
[2017-08-28 14:00] VITALS: BP 123/68
[2017-08-28] MEDS: APIXABAN 2.5 MG TAB (ELIQUIS) PO SCH (21:59)
[2017-08-28 22:00] VITALS: BP 128/61
[2017-08-29] MEDS: IPRATROPIUM 0.5MG/ALBUTEROL 2.5MG INH SOL UD 3ML (DUONEB)(J7620) NEB SCH ×3 (01:26→13:18)
[2017-08-29] MEDS: oxyCODONE 5MG TAB PO PRN (05:13)
[2017-08-29 06:00] VITALS: BP 120/56
[2017-08-29 06:55] LABS: MEAN CORPUSCULAR HEMOGLOBIN 32.3 pg (27.0-33.0); MEAN CORPUSCULAR HGB CONC 33.8 g/dl (32.0-36.5); MEAN CORPUSCULAR VOLUME 95.7 fl (80.0-96.0); PLATELET COUNT, AUTOMATED 179 10^3/uL (150-450); RED CELL DISTRIBUTION WIDTH 15.3 % (11.5-14.5); WHITE BLOOD COUNT 8.5 10^3/uL (4.0-10.0)
[2017-08-29 07:06] LABS: ANION GAP 2 MEQ/L (8-16); BLOOD UREA NITROGEN 13 MG/DL (7-18); CALCIUM LEVEL 8.5 MG/DL (8.8-10.2); CARBON DIOXIDE LEVEL 42 MEQ/L (21-32); CHLORIDE LEVEL 90 MEQ/L (98-107); CREATININE FOR GFR 0.65 MG/DL (0.55-1.02); GLOMERULAR FILTRATION RATE > 60.0 (>32); GLUCOSE, FASTING 146 MG/DL (83-110); MAGNESIUM LEVEL 1.7 MG/DL (1.8-2.4); POTASSIUM SERUM 3.8 MEQ/L (3.5-5.1); SODIUM LEVEL 134 MEQ/L (136-145)
[2017-08-29] MEDS: HumaLOG INSULIN (NovoLOG) PER UNIT SC SCH ×4 (07:30→20:20)
[2017-08-29] MEDS: RAMIPRIL 1.25 MG CAP PO SCH ×2 (08:18→21:38)
[2017-08-29] MEDS: FUROSEMIDE 40 MG/4 ML VIAL (J1940) IV SCH (08:18)
[2017-08-29] MEDS: ASPIRIN 81 MG ENTERIC TAB PO SCH (08:19)
[2017-08-29] MEDS: MULTIVITAMINS/MINERALS THERAP 1 TAB PO SCH (08:19)
[2017-08-29] MEDS: MAGNESIUM OXIDE 400 MG TAB (MAG-OX) PO SCH ×2 (08:19→21:36)
[2017-08-29] MEDS: CARVedilol 6.25 MG TAB PO SCH ×2 (08:19→21:37)
[2017-08-29] MEDS: GABAPENTIN 400 MG CAP PO SCH ×2 (08:19→21:37)
[2017-08-29] MEDS: ATORVASTATIN 20 MG TAB PO SCH (08:19)
[2017-08-29] MEDS: PANTOPRAZOLE 40MG TAB (PROTONIX) PO SCH (08:19)
[2017-08-29] MEDS: DOXYCYCLINE HYCLATE 100 MG TAB PO SCH ×2 (08:19→21:36)
[2017-08-29] MEDS: APIXABAN 2.5 MG TAB (ELIQUIS) PO SCH ×2 (08:19→21:36)
[2017-08-29] MEDS: NYSTATIN CREAM 15 GM EXT SCH ×2 (08:20→21:38)
--- NOTE | 2017-08-29 09:13 | IPNPDOC ---
Subjective Date Seen The patient was seen on 08/29/17. Subjective Chief Complaint/HPI The patient is a 82-year-old female admitted with a reason for visit of Dehydration, Uti. Events since last encounter Still with rattling cough, otherwise no complaints. Constitutional: Denies: Chills, Fever Pulmonary: Reports: Cough, Denies: Dyspnea Cardiovascular: Denies: Chest Pain, Palpitations Gastrointestinal: Denies: Nausea, Vomiting, Abdominal Pain, Diarrhea, Constipation Objective Physical Examination General Exam: Positive: Alert, No Acute Distress (Sitting up in chair, eating breakfast. Bright and alert without signs of dyspnea) Chest Exam: Positive: Rales, Rhonchi Heart Exam: Positive: Rate Normal, Normal S1, Normal S2 Telemetry: Positive: Atrial fibrillation Abdomen Exam: Positive: Normal bowel sounds, Soft Extremity Exam: Negative: Edema, Tenderness, Swelling Assessment /Plan Problems (1) COPD (chronic obstructive pulmonary disease) Problem Text: 08/29 - Rattling BS on exam today. Oxygen saturations in 90s. CXR 08/27 showed LLL consolidation/atelectasis with small pleural effusion and right atelectasis. Will d/c "q2hr prn" duoneb, change to routine qid, with q2 hr prn albuterol neb.(JR) She is on doxy. allergic to PCN and cross-reactors. She is afebrile with normal WBC and no significant resp distress to suggest HAP - Encourage IS and OOB Start po prednisone today for COPD exac. (2) Paroxysmal atrial fibrillation Problem Text: 08/29 - Patient with newly diagnosed paroxysmal episodes of atrial fibrillation. had 3 beats of V-tach overnight,otherwise tele shows a- fib and NSR rate in the 80s. on coreg 6.25 mg BID (Increased 08/26 due to HR 127). Age 81, weight <60kg so she should be on low dose eliquis. Continue Eliquis, dose adjusted for age and weight TSH normal Echo as below (3) Diastolic congestive heart failure Status: Chronic Problem Text: pleural effusion on CXR with infiltrate/atelectasis. IV Lasix x last 24 hours. Still rhonchi and wheezes on exam, but I suspect this is more related to COPD exacerbation and atelectasis from being in bed. I plan to give prednisone for COPD exac today Na+ has dropped to 134. Mag down as well. D/C IV Lasix. give usual HD Lasix. Replace mag (4) Acute CVA (cerebrovascular accident) Status: Acute Discussed With: Surveyor Hydrographic Problem Text: 08/27- Brain MRI on admission revealed acute CVA. Eliquis started due to PAF. Per Neurology started aspirin 81 mg daily, atorvastatin 40 mg daily, PT/OT Carotid ultrasound showed 70% stenosis on the right and less than 50% stenosis of the left. Echo showed: Hyperdynamic left ventricular systolic function. LVEF 75% by visual estimate. No regional wall motion abnormalities of the left ventricle. Normal left ventricle size and wall thicknesses. Mild left atrial dilatation. Suggestive of mild elevation of pulmonary artery systolic pressure and estimated right ventricle systolic pressure. Normal right ventricle size and systolic function. Central venous pressure estimated to be in the normal range of 5-10 mmHg. Severe mitral annular calcification. No mitral regurgitation. No mitral stenosis. Mild aortic valve sclerosis of a 3-cusp aortic valve. (5) Physical deconditioning Status: Chronic Problem Text: 08/29 - cont PT - will need ST rehab/SNF once stable 08/26: Patient refused to do any substantial PT this morning. PT says patient is not safe for home discharge. Order placed for PFS consult to assess for potential placement 08/25 has not yet participated c PT (6) Ventricular tachycardia Status: Acute Problem Text: 08/29 - 3 beats V-tach overnight. Replace mag 08/26: Has not had another episode since Saturday. K 3.5, was given 40 MEQ PO today. Mg is 1.7. Continue to monitor. 08/25 K 3.7, Mg 1.8-gave 40 po and increased MOX 400 BID to 800 BID 08/24 TTE P 08/24 qhs asx NSVT while sleeping 08/24 CPK 34, T-I 0.02 (7) Urinary tract infection Problem Text: 08/29: ordered u/a and culture was not collected and was cancelled by person unknown so will be re-ordered. 08/26: doxy is usually not a great choice for UTI since it is not excreted significantly into the urine. will repeat cath U/A today due to change in alertness. 08/26: 4 day course of Doxycycline started today and to be completed on 08/29. D3 ceftriaxone (08/26 start doxy for 4D for complicated UTI) 08/25 changed to doxy for 08/26 08/23 UCX S. epi (8) Type 2 diabetes mellitus Problem Text: 08/26: Stable. Continue on sliding scale insulin. 08/23: Stable, continue sliding scale insulin (9) Hypertension Problem Text: 08/26: Stable, continue current medications. 08/23: Stable, continue current medications (10) Osteoarthritis Problem Text: 08/24: Oxycodone restarted at dose of 5 mg by mouth every 6 hours when necessary 08/23: Continue to hold oxycodone due to altered mental status (11) Depression Problem Text: 08/23: Continue to hold escitalopram due to altered mental status Plan/VTE VTE Prophylaxis Ordered?: Yes Plan Therapy: PT, OT VS, I&O, 24H, Fishbone Vital Signs/I&O Vital Signs Date Time Temp Pulse Resp B/P (MAP) Pulse Ox O2 Delivery O2 Flow Rate FiO2 08/29/17 08:19 76 08/29/17 06:00 98.1 20 120/56 (77) 94 Nasal Cannula 3.0 Laboratory Data 24H LABS Laboratory Tests 2 08/28/17 12:08: Bedside Glucose (Misc Panel) 139H 08/28/17 13:14: Ammonia 21 08/28/17 20:12: Bedside Glucose (Misc Panel) 213H 08/29/17 06:20: Nucleated Red Blood Cells % (auto) 0.0, Anion Gap 2L, Glomerular Filtration Rate > 60.0, Blood Urea Nitrogen 13, Creatinine 0.65, Sodium Level 134L, Potassium Level 3.8, Chloride Level 90L, Carbon Dioxide Level 42H, Calcium Level 8.5L, Magnesium Level 1.7L CBC/BMP Laboratory Tests 08/29/17 06:20 Red Blood Count 4.86, Mean Corpuscular Volume 95.7, Mean Corpuscular Hemoglobin 32.3, Mean Corpuscular Hemoglobin Concent 33.8, Red Cell Distribution Width 15.3 H, Calcium Level 8.5 L Microbiology Microbiology 08/23/17 Blood Culture - Final, Complete NO GROWTH AFTER 5 DAYS 08/23/17 Urine Culture - Final, Complete Staphylococcus Epidermidis MARILU ALVARADO PA-C Aug 29, 2017 09:13 Wilder Rushing MD Aug 29, 2017 10:29
[2017-08-29] MEDS ORDERED: MAG SULF 1GM/100ML (MAG RUN) 1 GM in APPROPRIATE DILUENT 1 EA IV ONE (09:15)
[2017-08-29] MEDS: predniSONE 20 MG TAB PO SCH ×2 (09:39→21:38)
[2017-08-29 14:00] VITALS: BP 106/55
[2017-08-29] MEDS: clonazePAM 1 MG TAB PO SCH (21:38)
[2017-08-29 22:00] VITALS: BP 113/51
[2017-08-30] MEDS: IPRATROPIUM 0.5MG/ALBUTEROL 2.5MG INH SOL UD 3ML (DUONEB)(J7620) NEB SCH ×6 (00:05→23:39)
[2017-08-30] MEDS ORDERED: IPRATROPIUM 0.5MG/ALBUTEROL 2.5MG INH SOL UD 3ML (DUONEB)(J7620) NEB PRN (03:45)
[2017-08-30 06:00] VITALS: BP 132/63
[2017-08-30 07:06] LABS: MEAN CORPUSCULAR HEMOGLOBIN 32.5 pg (27.0-33.0); MEAN CORPUSCULAR HGB CONC 33.7 g/dl (32.0-36.5); MEAN CORPUSCULAR VOLUME 96.5 fl (80.0-96.0); PLATELET COUNT, AUTOMATED 166 10^3/uL (150-450); RED CELL DISTRIBUTION WIDTH 15.4 % (11.5-14.5); WHITE BLOOD COUNT 8.4 10^3/uL (4.0-10.0)
[2017-08-30 07:31] LABS: ANION GAP 4 MEQ/L (8-16); BLOOD UREA NITROGEN 19 MG/DL (7-18); CALCIUM LEVEL 9.1 MG/DL (8.8-10.2); CARBON DIOXIDE LEVEL 41 MEQ/L (21-32); CHLORIDE LEVEL 90 MEQ/L (98-107); CREATININE FOR GFR 0.71 MG/DL (0.55-1.02); GLOMERULAR FILTRATION RATE > 60.0 (>32); GLUCOSE, FASTING 185 MG/DL (83-110); MAGNESIUM LEVEL 2.3 MG/DL (1.8-2.4); POTASSIUM SERUM 4.4 MEQ/L (3.5-5.1); SODIUM LEVEL 135 MEQ/L (136-145)
[2017-08-30] MEDS: MAGNESIUM OXIDE 400 MG TAB (MAG-OX) PO SCH ×2 (09:27→21:42)
[2017-08-30] MEDS: PANTOPRAZOLE 40MG TAB (PROTONIX) PO SCH (09:28)
[2017-08-30] MEDS: ASPIRIN 81 MG ENTERIC TAB PO SCH (09:28)
[2017-08-30] MEDS: CARVedilol 6.25 MG TAB PO SCH ×2 (09:28→21:27)
[2017-08-30] MEDS: predniSONE 20 MG TAB PO SCH ×2 (09:28→21:28)
[2017-08-30] MEDS: ATORVASTATIN 20 MG TAB PO SCH (09:29)
[2017-08-30] MEDS: GABAPENTIN 400 MG CAP PO SCH ×2 (09:29→21:28)
[2017-08-30] MEDS: RAMIPRIL 1.25 MG CAP PO SCH ×2 (09:29→21:27)
[2017-08-30] MEDS: HumaLOG INSULIN (NovoLOG) PER UNIT SC SCH ×4 (09:29→21:00)
[2017-08-30] MEDS: MULTIVITAMINS/MINERALS THERAP 1 TAB PO SCH (09:29)
[2017-08-30] MEDS: oxyCODONE 5MG TAB PO PRN ×2 (10:10→21:43)
[2017-08-30] MEDS: NYSTATIN CREAM 15 GM EXT SCH ×2 (10:11→21:30)
--- NOTE | 2017-08-30 10:44 | IPNPDOC ---
Subjective Date Seen The patient was seen on 08/30/17. Subjective Chief Complaint/HPI The patient is a 82-year-old female admitted with a reason for visit of Dehydration, Uti. Pulmonary: Reports: Cough, Other Symptoms (hemoptysis) Cardiovascular: Denies: Chest Pain, Orthopnea Objective Physical Examination General Exam: Positive: Alert, No Acute Distress (Sitting up in chair, eating breakfast. Bright and alert without signs of dyspnea) Chest Exam: Positive: Rales, Rhonchi (especially left base) Heart Exam: Positive: Rate Normal, Normal S1, Normal S2 Telemetry: Positive: Atrial fibrillation Abdomen Exam: Positive: Normal bowel sounds, Soft Extremity Exam: Negative: Edema, Tenderness, Swelling RAD Interpretation STUDY: CXR Rad Actions: Report Reviewed RAD Interpretation: Worse (LEFT lower lobe infiltrate.) Assessment /Plan Problems (1) COPD (chronic obstructive pulmonary disease) Problem Text: 08/29 - Rattling BS on exam today. Oxygen saturations in 90s. CXR 08/27 showed LLL consolidation/atelectasis with small pleural effusion and right atelectasis. Will d/c "q2hr prn" duoneb, change to routine qid, with q2 hr prn albuterol neb.(JR) She is on doxy. allergic to PCN and cross-reactors. She is afebrile with normal WBC and no significant resp distress to suggest HAP - Encourage IS and OOB Start po prednisone today for COPD exac. (2) Paroxysmal atrial fibrillation Problem Text: 08/29 - Patient with newly diagnosed paroxysmal episodes of atrial fibrillation. had 3 beats of V-tach overnight,otherwise tele shows a- fib and NSR rate in the 80s. on coreg 6.25 mg BID (Increased 08/26 due to HR 127). Age 81, weight <60kg so she should be on low dose eliquis. Continue Eliquis, dose adjusted for age and weight TSH normal Echo as below (3) Diastolic congestive heart failure Status: Chronic Problem Text: 08/30: increased oxygen requirements and hemoptysis this am. will repeat CXR, start ceftazidime. risk for cross reaction felt to be low with purported pcn allergy. pleural effusion on CXR with infiltrate/atelectasis. IV Lasix x last 24 hours. Still rhonchi and wheezes on exam, but I suspect this is more related to COPD exacerbation and atelectasis from being in bed. I plan to give prednisone for COPD exac today Na+ has dropped to 134. Mag down as well. D/C IV Lasix. give usual HD Lasix. Replace mag (4) Acute CVA (cerebrovascular accident) Status: Acute Discussed With: Banquet Houseperson Problem Text: 08/27- Brain MRI on admission revealed acute CVA. Eliquis started due to PAF. Per Neurology started aspirin 81 mg daily, atorvastatin 40 mg daily, PT/OT Carotid ultrasound showed 70% stenosis on the right and less than 50% stenosis of the left. Echo showed: Hyperdynamic left ventricular systolic function. LVEF 75% by visual estimate. No regional wall motion abnormalities of the left ventricle. Normal left ventricle size and wall thicknesses. Mild left atrial dilatation. Suggestive of mild elevation of pulmonary artery systolic pressure and estimated right ventricle systolic pressure. Normal right ventricle size and systolic function. Central venous pressure estimated to be in the normal range of 5-10 mmHg. Severe mitral annular calcification. No mitral regurgitation. No mitral stenosis. Mild aortic valve sclerosis of a 3-cusp aortic valve. (5) Physical deconditioning Status: Chronic Problem Text: 08/29 - cont PT - will need ST rehab/SNF once stable 08/26: Patient refused to do any substantial PT this morning. PT says patient is not safe for home discharge. Order placed for PFS consult to assess for potential placement 08/25 has not yet participated c PT (6) Ventricular tachycardia Status: Acute Problem Text: 08/29 - 3 beats V-tach overnight. Replace mag 08/26: Has not had another episode since Saturday. K 3.5, was given 40 MEQ PO today. Mg is 1.7. Continue to monitor. 08/25 K 3.7, Mg 1.8-gave 40 po and increased MOX 400 BID to 800 BID 08/24 TTE P 08/24 qhs asx NSVT while sleeping 08/24 CPK 34, T-I 0.02 (7) Urinary tract infection Problem Text: 08/30: u/a looks unlikely for continued UTI. 08/29: ordered u/a and culture was not collected and was cancelled by person unknown so will be re-ordered. 08/26: doxy is usually not a great choice for UTI since it is not excreted significantly into the urine. will repeat cath U/A today due to change in alertness. 08/26: 4 day course of Doxycycline started today and to be completed on 08/29. D3 ceftriaxone (08/26 start doxy for 4D for complicated UTI) 08/25 changed to doxy for 08/26 08/23 UCX S. epi (8) Type 2 diabetes mellitus Problem Text: 08/26: Stable. Continue on sliding scale insulin. 08/23: Stable, continue sliding scale insulin (9) Hypertension Problem Text: 08/26: Stable, continue current medications. 08/23: Stable, continue current medications (10) Osteoarthritis Problem Text: 08/24: Oxycodone restarted at dose of 5 mg by mouth every 6 hours when necessary 08/23: Continue to hold oxycodone due to altered mental status (11) Depression Problem Text: 08/23: Continue to hold escitalopram due to altered mental status Plan/VTE VTE Prophylaxis Ordered?: Yes Plan Therapy: PT, OT VS, I&O, 24H, Fishbone Vital Signs/I&O Vital Signs Date Time Temp Pulse Resp B/P (MAP) Pulse Ox O2 Delivery O2 Flow Rate FiO2 08/30/17 10:10 18 08/30/17 09:29 132/63 08/30/17 09:28 78 08/30/17 06:00 96.9 93 High Flow Cannula 6.0 I&O- Last 24 Hours up to 6 AM 08/31/17 06:00 Intake Total 120 ml Output Total 0 ml Balance 120 ml Laboratory Data 24H LABS Laboratory Tests 2 08/29/17 11:27: Urine Appearance CLEAR, Urine Color YELLOW, Urine pH 6.0, Urine Specific [place] 1.008, Urine Protein NEGATIVE, Urine Glucose (UA) NEGATIVE, Urine Ketones NEGATIVE, Urine Urobilinogen 0.2, Urine Bilirubin NEGATIVE, Urine Leukocyte Esterase NEGATIVE, Urine Blood NEGATIVE, Urine Nitrite NEGATIVE, Urine WBC (Auto) 2, Urine RBC (Auto) 0, Urine Hyaline Casts (Auto) 7, Urine Bacteria (Auto) NEGATIVE, Urine Squamous Epithelial Cells 0, Urine Mucus (Auto) SMALL, Urine Sperm (Auto) 08/29/17 11:58: Bedside Glucose (Misc Panel) 219H 08/29/17 17:08: Bedside Glucose (Misc Panel) 234H 08/29/17 20:00: Bedside Glucose (Misc Panel) 240H 08/30/17 06:52: Nucleated Red Blood Cells % (auto) 0.0, Anion Gap 4L, Glomerular Filtration Rate > 60.0, Blood Urea Nitrogen 19H, Creatinine 0.71, Sodium Level 135L, Potassium Level 4.4, Chloride Level 90L, Carbon Dioxide Level 41H, Calcium Level 9.1, Magnesium Level 2.3 CBC/BMP Laboratory Tests 08/30/17 06:52 Red Blood Count 4.89, Mean Corpuscular Volume 96.5 H, Mean Corpuscular Hemoglobin 32.5, Mean Corpuscular Hemoglobin Concent 33.7, Red Cell Distribution Width 15.4 H, Calcium Level 9.1 Microbiology Microbiology 08/23/17 Blood Culture - Final, Complete NO GROWTH AFTER 5 DAYS 08/29/17 Urine Culture, Received Pending 08/23/17 Urine Culture - Final, Complete Staphylococcus Epidermidis Wilder Rushing MD Aug 30, 2017 10:44
--- NOTE | 2017-08-30 11:07 | REP ---
Clinical: Hypoxia. Technique: AP and lateral. Comparison: 08/27/2017. Findings: Diffuse chronic interstitial changes are appreciated. Right hilar prominence cannot exclude underlying mass lesion and perihilar atelectasis along with possible retrocardiac atelectasis. Lateral view cannot exclude small posterior pleural reaction. No pneumothorax. Skeletal structures demonstrate osteopenia and chronic degenerative changes. Impression: Cannot exclude right perihilar density and perihilar and retrocardiac atelectasis. Possible small posterior pleural reaction. Signed by Uri Pacheco MD 08/30/2017 10:58 A
[2017-08-30] MEDS: SODIUM CHLORIDE 0.9% NASAL GEL 15MG (AYR) SCH ×4 (12:14→21:31)
[2017-08-30 14:00] VITALS: BP 105/62
[2017-08-30] MEDS ORDERED: ISOVUE-370 76% 100ML VIAL (Q9967) As Ordered ONE (14:19)
[2017-08-30] MEDS: CEFTAZIDIME IV SCH (14:40)
[2017-08-30] MEDS: DILUENT IV SCH (14:40)
--- NOTE | 2017-08-30 16:16 | CR ---
DATE OF CONSULTATION: 08/30/2017 REASON FOR CONSULTATION: Hemoptysis. HISTORY: Ms. Villafana is a very pleasant 82-year-old female who was originally admitted for altered mental status secondary to UTI v. stroke and subsequently found to have acute ischemic changes on MRI. We were consulted because yesterday she started coughing up bright red blood. She also states that today she coughed up "blood" that looked like the roast beef she ate for lunch today. She has recently been diagnosed with paroxysmal atrial fibrillation and started on Eliquis during this hospital stay. This was discontinued yesterday. She does have a history of chronic obstructive pulmonary disease (COPD) requiring two liters of oxygen via nasal cannula at home. She had previously been on high-flow nasal cannula during this admission. This was changed back to two liters nasal cannula this morning, as she started having epistaxis with this. The patient states that she has had a "cold " for about a month. She has been experiencing sinus pressure especially with her left nostril being stuffy. She has also had a runny nose with clear drainage. The patient does have an extensive history of smoking. She states that she has smoked since the age of 15, and has smoked at last a half pack per day since then. She states that she smokes as soon as she wakes up in the morning. She does say that she quit smoking about two months ago. however, she is unsure of exactly when she quit and is also unsure of how long she has been in the hospital. She states that she has a history of left breast cancer and is status post lumpectomy with resection of 2-3 lymph nodes and radiation. She denies having chemoradiation. She has never seen a beater boss. She also has a history of COPD, diastolic congestive heart failure, hypertension, anxiety, and diabetes. CURRENT MEDICATIONS: Ceftazidine 2g Q12H Duonebs Q1H PRN Prednisone 20 mg Q12H PRN Klonopin 1 mg QHS Proventil 2.5 mg Q2H PRN Drisdol 50,000 units on Saturday CoReg 6.25 mg PO BID Nystatin powder BID Aspirin 81 mg PO Daily MagOx 800 mg PO BID Ramipril 2.5 mg PO BID Oxycodone 5 mg PO Q6H PRN HumaLOG sliding scale Lipitor 40 mg Daily Protonix 40 mg Daily Gabapentin 400 mg PO BID Zofran 4 mg Q6H PRN Multivitamin PAST MEDICAL HISTORY: Left breast cancer s/p lumpectomy and radiation Tobacco Abuse COPD, on 2 L O2 at home Diastolic Heart failure HTN Depression Insomnia GERD Subclinical hypothyroidism Stress, urge incontinence DJD Osteoarthritis Essential Tremor Anemia of Chronic disease Recurrent pancreatitis Alcohol hepatitis/cirrhosis Avascular necrosis of humeral head History of H. pylori SURGICAL HISTORY: Enterocele repair Bilateral cataract repair Right femoral shaft fracture repair Left lumpectomy, breast cancer FAMILY HISTORY: non-contributory SOCIAL HISTORY: Patient lives at home with her , is assisted by home health aide. She smokes 1 pack of cigarettes daily, and admits to alcohol use but is unable to quantify how much. ALLERGIES: Clavulanic Acid (vomiting) REVIEW OF SYSTEMS: The patient denies fevers, chills, wheezing, shortness of breath, paroxysmal nocturnal dyspnea, orthopnea, new lumps or bumps anywhere, black tarry stools, bright red blood per rectum, or problems urinating. There is no other bleeding source. She denies nausea, vomiting, diarrhea, constipation, abdominal pain, chest pain, palpitations, changes in urination including hematuria, vision changes, sore throat, sinus pain, difficulty swallowing, new rashes, numbness, tingling, changes to sensation, depression, problems sleeping, cold or heat intolerance. She does admit to weakness and fatigue. PHYSICAL EXAMINATION: VITAL SIGNS: Temperature is 96.9, pulse is 78, respiratory rate is 18, blood pressure is 132/63, with a mean arterial pressure (MAP) of 86, pulse oximetry is 92% on two liters of oxygen via nasal cannula. HEENT: Pupils equal, round, and reactive to light. The patient is wearing a nasal cannula with significant clotted blood in the left nostril, as well as some clotted blood in the right nostril. Upon examination of the mouth, mucous membranes are moist. The patient has her own teeth; however, dentition is poor, she does have multiple caries present. The posterior pharynx does have blood tracking down mixed with postnasal drip. NECK: Supple and nontender. The sternocleidomastoid muscles are tight and ropey bilaterally. There are no carotid bruits present. LUNGS: The patient does use some accessory muscles to breathe. She does have diffuse rhonchi bilaterally, especially prominent during the expiratory phase. There is no dullness to percussion, there is no egophony. Her expiratory phase is longer than her inspiratory phase. The patient did have some tenderness to palpation along the right anterior chest wall; however, this was not reproducible to further palpation. HEART: The patient is in normal sinus rhythm right now, no murmurs, gallops, or rubs are appreciated. ABDOMEN: Normoactive bowel sounds, soft and nontender to palpation. EXTREMITIES: No clubbing or cyanosis is noted. There is no edema in her extremities bilaterally. The patient does have good pulses and capillary refill. LABORATORY DATA: CBC: White blood cells 8.4, hemoglobin 15.9, hematocrit 47.2, platelets 166. There is no differential. Chemistry: Sodium 135, potassium 4.4, chloride 90, carbon dioxide 41, BUN 19, creatinine 0.71, fasting glucose 185, calcium 9.1, magnesium 2.3. Urinalysis (08/29/2017): Clear, yellow, with a specific gravity of 1.008, negative for protein, glucose, ketones, blood, nitrite, bilirubin, leukocyte esterase and bacteria. MICROBIOLOGY: Previous urine culture on 08/23/2017, grew Staphylococcus epidermidis, urine culture from 08/29/2017 is pending. Blood culture from 08/23/2017, showed no growth. IMAGING: Chest x-ray done today shows a new right lower lobe infiltrate that was not there on the previous x-ray from 08/27/2017. ASSESSMENT: Ms. Villafana is a pleasant 82-year-old female who was initially admitted for urinary tract infection (UTI) versus ischemic stroke, found to have an ischemic stroke on MRI. She started having hemoptysis yesterday, and we were consulted subsequently today. She was put on Eliquis for paroxysmal atrial fibrillation which was thought to have caused her ischemic stroke on 08/28/2017. This was discontinued yesterday on 08/29/2017, as the patient developed epistaxis. 1. Hemoptysis. Most likely secondary to epistaxis from nasal cannula and dryness from this. The patient's oxygen is now being humidified, and she does have a nasal gel ordered. Her Eliquis has been discontinued. Differential diagnosis also includes pneumonia, bronchitis, lung cancer secondary to her extensive smoking history. Less likely vasculitis, like [place], Dana's, or [place] vasculitis. 2. Pneumonia, likely secondary to aspiration. There is a new right lower lobe infiltrate on her chest x-ray from today that was not there on the chest x-ray done on 08/27/2017. During her history, she did admit that one of the times she coughed up "blood," it was the color of the chewed-up roast beef she had eaten today. Agree with antibiotics at this time. CT chest shows dependent atelectasis, pneumonia cannot be ruled out. Thank you for your consultation. We shall continue to follow. My faculty preceptor for this patient encounter was physically present during the encounter and was fully available. All aspects of the patient interview, examination, medical decision making process, and medical care plan development were reviewed and approved by the faculty preceptor. The faculty preceptor is aware and concurs with the plan as stated in the body of this note and will attest to such by his/her co-signature. KHRIS
--- NOTE | 2017-08-30 16:24 | REP ---
Clinical: Hemoptysis. Dyspnea. Technique: Axial contrast enhanced images from the thoracic inlet to the upper abdomen using 100 ml Isovue 370 intravenous contrast material with coronal and sagittal re-formations. Findings: Small bilateral pleural effusions are appreciated with moderate lower lobe consolidations and air bronchograms. Chronic age-related interstitial changes and mild emphysematous changes are appreciated. Tracheobronchial tree is patent. No significant cardiomegaly although pulmonary vascular congestion cannot be excluded. Atherosclerotic changes to the thoracic aorta and coronary arteries noted. No pericardial effusion. No obvious adenopathy. Surrounding musculoskeletal structures demonstrate age-related degenerative changes. Impression: Moderate lower lobe consolidations with small bilateral pleural effusions and mild pulmonary vascular congestion. Signed by Uri Pacheco MD 08/30/2017 04:16 P
[2017-08-30] MEDS: clonazePAM 1 MG TAB PO SCH (21:28)
[2017-08-30 22:00] VITALS: BP 136/71
[2017-08-31] MEDS: DILUENT IV SCH ×2 (01:31→13:42)
[2017-08-31] MEDS: CEFTAZIDIME IV SCH ×2 (01:31→13:42)
[2017-08-31 06:00] VITALS: BP 122/74
[2017-08-31 06:24] LABS: ANION GAP 2 MEQ/L (8-16); BLOOD UREA NITROGEN 24 MG/DL (7-18); CALCIUM LEVEL 8.7 MG/DL (8.8-10.2); CARBON DIOXIDE LEVEL 42 MEQ/L (21-32); CHLORIDE LEVEL 89 MEQ/L (98-107); CREATININE FOR GFR 0.61 MG/DL (0.55-1.02); GLOMERULAR FILTRATION RATE > 60.0 (>32); GLUCOSE, FASTING 179 MG/DL (83-110); POTASSIUM SERUM 4.5 MEQ/L (3.5-5.1); SODIUM LEVEL 133 MEQ/L (136-145)
[2017-08-31] MEDS: IPRATROPIUM 0.5MG/ALBUTEROL 2.5MG INH SOL UD 3ML (DUONEB)(J7620) NEB SCH ×3 (07:17→19:59)
[2017-08-31] MEDS: HumaLOG INSULIN (NovoLOG) PER UNIT SC SCH ×4 (08:08→21:00)
[2017-08-31] MEDS: NYSTATIN CREAM 15 GM EXT SCH ×2 (08:09→21:36)
[2017-08-31] MEDS: SODIUM CHLORIDE 0.9% NASAL GEL 15MG (AYR) SCH ×4 (08:09→21:36)
[2017-08-31] MEDS: CARVedilol 6.25 MG TAB PO SCH ×2 (08:12→21:36)
[2017-08-31] MEDS: RAMIPRIL 1.25 MG CAP PO SCH ×2 (08:13→21:34)
[2017-08-31] MEDS: MULTIVITAMINS/MINERALS THERAP 1 TAB PO SCH (08:13)
[2017-08-31] MEDS: GABAPENTIN 400 MG CAP PO SCH ×2 (08:13→21:36)
[2017-08-31] MEDS: MAGNESIUM OXIDE 400 MG TAB (MAG-OX) PO SCH ×2 (08:14→21:34)
[2017-08-31] MEDS: predniSONE 20 MG TAB PO SCH ×2 (08:14→21:35)
[2017-08-31] MEDS: ASPIRIN 81 MG ENTERIC TAB PO SCH (08:14)
[2017-08-31] MEDS: ATORVASTATIN 20 MG TAB PO SCH (08:14)
[2017-08-31] MEDS: PANTOPRAZOLE 40MG TAB (PROTONIX) PO SCH (08:14)
[2017-08-31] MEDS: oxyCODONE 5MG TAB PO PRN ×2 (08:30→21:35)
--- NOTE | 2017-08-31 11:16 | IPNPDOC ---
Subjective Date Seen The patient was seen on 08/31/17. Subjective Chief Complaint/HPI The patient is a 82-year-old female admitted with a reason for visit of Dehydration, Uti. Events since last encounter Patient states she feels better today and her breathing is improved; she was not wearing her oxygen at the time that I saw her. She states she coughed up a mouthful of blood yesterday and she had some nose bleeding yesterday, but has not had any bleeding today. Constitutional: Denies: Chills, Fever Skin: Denies: Rash Pulmonary: Denies: Dyspnea, Cough Cardiovascular: Denies: Chest Pain, Palpitations Gastrointestinal: Denies: Nausea, Vomiting, Abdominal Pain Hematologic: Reports: Bruising, Denies: Bleeding Excessively Psych: Reports: Mood Normal Objective Physical Examination General Exam: Positive: Alert, No Acute Distress (Bright and alert without signs of dyspnea without nasal canula on) Chest Exam: Positive: Rales, Rhonchi (left base) Heart Exam: Positive: Rate Normal, Normal S1, Normal S2 Telemetry: Positive: Atrial fibrillation Abdomen Exam: Positive: Normal bowel sounds, Soft Extremity Exam: Negative: Edema, Tenderness, Swelling Neuro Exam: Positive: Cranial Nerves 3-12 NL Psych Exam: Positive: Mental status NL, Mood NL, Memory Intact, Oriented x 3 Assessment /Plan Problems (1) Pneumonia Status: Acute Problem Text: CT 08/30/17: Moderate lower lobe consolidations with small bilateral pleural effusions and mild pulmonary vascular congestion. - Ceftazadime started 08/30/17 - Remains Afebrile, and WBCs continue to be WNL - O2 increased to 6 LPM yesterday, but patient is not wearing her O2 today and is in no respiratory distress; I asked nurse to try to wean O2 today (2) COPD (chronic obstructive pulmonary disease) Problem Text: No wheezing on exam today, though bilateral lower lobe rhonchi noted - Continue ceftazadime for #1 above (has been tolerating without side effects) - Continue prednisone and nebs - Encourage IS and OOB (3) Paroxysmal atrial fibrillation Problem Text: Patient with newly diagnosed paroxysmal episodes of atrial fibrillation. - On coreg 6.25 mg BID (Increased 08/26 due to HR 127). - Eliquis was started at 2.5 mg BID, but was discontinued on 08/29 due to hemoptysis; Dr. Porter discussed risks and benefits of restarting Eliquis with the patient on 08/31, and she does not want to be on Eliquis due to recent bleeding episodes. She verbalized understanding that without blood thinner she is at risk of having another stroke, which could cause or disability. TSH normal Echo as below (4) Diastolic congestive heart failure Status: Chronic Problem Text: CT results as above in #1. - Initially was given IV lasix for first 24 hours, but this was stopped as breathing troubles were thought to be more due to COPD and pneumonia. - Weight is down from admission - Restart HD lasix 40 mg PO daily on 08/31 - Mag improved yesterday with PO replacement (5) Acute CVA (cerebrovascular accident) Status: Acute Discussed With: Placement Director Problem Text: Brain MRI on admission revealed acute CVA. - Eliquis started due to PAF but now being held due to patient refusal - Per Neurology started aspirin 81 mg daily, atorvastatin 40 mg daily, PT/OT Carotid ultrasound showed 70% stenosis on the right and less than 50% stenosis of the left. Echo showed: Hyperdynamic left ventricular systolic function. LVEF 75% by visual estimate. No regional wall motion abnormalities of the left ventricle. Normal left ventricle size and wall thicknesses. Mild left atrial dilatation. Suggestive of mild elevation of pulmonary artery systolic pressure and estimated right ventricle systolic pressure. Normal right ventricle size and systolic function. Central venous pressure estimated to be in the normal range of 5-10 mmHg. Severe mitral annular calcification. No mitral regurgitation. No mitral stenosis. Mild aortic valve sclerosis of a 3-cusp aortic valve. (6) Physical deconditioning Status: Chronic Problem Text: Cont PT - will need ST rehab/SNF once stable 08/26: Patient refused to do any substantial PT this morning. PT says patient is not safe for home discharge. Order placed for PFS consult to assess for potential placement 08/25 has not yet participated c PT (7) Ventricular tachycardia Status: Acute Problem Text: 08/29 - 3 beats V-tach overnight. Replace mag 08/26: Has not had another episode since Saturday. K 3.5, was given 40 MEQ PO today. Mg is 1.7. Continue to monitor. 08/25 K 3.7, Mg 1.8-gave 40 po and increased MOX 400 BID to 800 BID 08/24 TTE P 11/25 qhs asx NSVT while sleeping 08/24 CPK 34, T-I 0.02 (8) Urinary tract infection Status: Resolved Problem Text: 08/31: repeat urine culture is negative 08/30: u/a looks unlikely for continued UTI. 08/29: ordered u/a and culture was not collected and was cancelled by person unknown so will be re-ordered. 08/26: doxy is usually not a great choice for UTI since it is not excreted significantly into the urine. will repeat cath U/A today due to change in alertness. 08/26: 4 day course of Doxycycline started today and to be completed on 08/29. D3 ceftriaxone (08/26 start doxy for 4D for complicated UTI) 08/25 changed to doxy for 08/26 08/23 UCX S. epi (9) Type 2 diabetes mellitus Problem Text: 08/26: Stable. Continue on sliding scale insulin. 08/23: Stable, continue sliding scale insulin (10) Hypertension Problem Text: Stable, continue current medications. (11) Osteoarthritis Problem Text: 08/24: Oxycodone restarted at dose of 5 mg by mouth every 6 hours when necessary 08/23: Continue to hold oxycodone due to altered mental status (12) Depression Problem Text: Home escitalopram was held upon admission due to AMS Plan/VTE VTE Prophylaxis Ordered?: Yes Plan Therapy: PT, OT VS, I&O, 24H, Fishbone Vital Signs/I&O Vital Signs Date Time Temp Pulse Resp B/P (MAP) Pulse Ox O2 Delivery O2 Flow Rate FiO2 08/31/17 09:00 20 08/31/17 08:30 Nasal Cannula 6.0 08/31/17 08:13 126/65 08/31/17 08:12 91 08/31/17 06:00 97.5 92 I&O- Last 24 Hours up to 6 AM 09/01/17 06:00 Output Total 375 ml Balance -375 ml Laboratory Data 24H LABS Laboratory Tests 2 08/30/17 16:22: Bedside Glucose (Misc Panel) 108 08/30/17 20:52: Bedside Glucose (Misc Panel) 166H 08/31/17 05:33: Anion Gap 2L, Glomerular Filtration Rate > 60.0, Blood Urea Nitrogen 24H, Creatinine 0.61, Sodium Level 133L, Potassium Level 4.5, Chloride Level 89L, Carbon Dioxide Level 42H, Calcium Level 8.7L CBC/BMP Laboratory Tests 08/31/17 05:33 Calcium Level 8.7 L Microbiology Microbiology 08/23/17 Blood Culture - Final, Complete NO GROWTH AFTER 5 DAYS 08/29/17 Urine Culture - Final, Complete 08/23/17 Urine Culture - Final, Complete Staphylococcus Epidermidis STELLA PORTER MD Aug 31, 2017 11:16
[2017-08-31] MEDS: ENOXAPARIN 30 MG/0.3 ML SYR (J1650) SC SCH (11:45)
[2017-08-31] MEDS: FUROSEMIDE 40 MG TAB PO SCH (11:46)
[2017-08-31 14:00] VITALS: BP 113/58
[2017-08-31] MEDS: clonazePAM 1 MG TAB PO SCH (21:34)
[2017-08-31 22:00] VITALS: BP 125/66
[2017-09-01] MEDS: CEFTAZIDIME IV SCH ×2 (01:18→12:33)
[2017-09-01] MEDS: DILUENT IV SCH ×2 (01:18→12:33)
[2017-09-01] MEDS: IPRATROPIUM 0.5MG/ALBUTEROL 2.5MG INH SOL UD 3ML (DUONEB)(J7620) NEB SCH ×5 (02:00→23:36)
[2017-09-01 05:53] LABS: MEAN CORPUSCULAR HEMOGLOBIN 31.9 pg (27.0-33.0); MEAN CORPUSCULAR VOLUME 93.8 fl (80.0-96.0); PLATELET COUNT, AUTOMATED 156 10^3/uL (150-450); RED CELL DISTRIBUTION WIDTH 15.4 % (11.5-14.5); WHITE BLOOD COUNT 9.4 10^3/uL (4.0-10.0)
[2017-09-01 06:00] VITALS: BP 126/71
[2017-09-01 06:08] LABS: ANION GAP 5 MEQ/L (8-16); BLOOD UREA NITROGEN 27 MG/DL (7-18); CALCIUM LEVEL 8.6 MG/DL (8.8-10.2); CARBON DIOXIDE LEVEL 40 MEQ/L (21-32); CHLORIDE LEVEL 89 MEQ/L (98-107); CREATININE FOR GFR 0.76 MG/DL (0.55-1.02); GLOMERULAR FILTRATION RATE > 60.0 (>32); GLUCOSE, FASTING 182 MG/DL (83-110); MAGNESIUM LEVEL 2.4 MG/DL (1.8-2.4); POTASSIUM SERUM 4.5 MEQ/L (3.5-5.1); SODIUM LEVEL 134 MEQ/L (136-145)
[2017-09-01] MEDS: HumaLOG INSULIN (NovoLOG) PER UNIT SC SCH ×4 (07:42→20:30)
[2017-09-01] MEDS: ENOXAPARIN 30 MG/0.3 ML SYR (J1650) SC SCH (07:43)
[2017-09-01] MEDS: GABAPENTIN 400 MG CAP PO SCH ×2 (07:44→20:30)
[2017-09-01] MEDS: MULTIVITAMINS/MINERALS THERAP 1 TAB PO SCH (07:44)
[2017-09-01] MEDS: ATORVASTATIN 20 MG TAB PO SCH (07:44)
[2017-09-01] MEDS: predniSONE 20 MG TAB PO SCH ×2 (07:44→20:30)
[2017-09-01] MEDS: PANTOPRAZOLE 40MG TAB (PROTONIX) PO SCH (07:44)
[2017-09-01] MEDS: MAGNESIUM OXIDE 400 MG TAB (MAG-OX) PO SCH ×2 (07:44→20:32)
[2017-09-01] MEDS: ASPIRIN 81 MG ENTERIC TAB PO SCH (07:45)
[2017-09-01] MEDS: CARVedilol 6.25 MG TAB PO SCH ×2 (07:46→20:33)
[2017-09-01] MEDS: RAMIPRIL 1.25 MG CAP PO SCH ×2 (07:46→20:31)
[2017-09-01] MEDS: FUROSEMIDE 40 MG TAB PO SCH (07:46)
[2017-09-01] MEDS: NYSTATIN CREAM 15 GM EXT SCH ×2 (07:47→20:33)
[2017-09-01] MEDS: SODIUM CHLORIDE 0.9% NASAL GEL 15MG (AYR) SCH ×4 (07:47→20:33)
[2017-09-01] MEDS: oxyCODONE 5MG TAB PO PRN ×3 (08:10→20:32)
[2017-09-01 14:00] VITALS: BP 105/55
--- NOTE | 2017-09-01 14:07 | REP ---
Chest two views HISTORY: Rales Comparison: 08/30/2017 An increase in interstitial markings is present in the lungs consistent with chronic interstitial change. Bibasilar atelectasis or infiltrates are present decreased on the left and unchanged on the right. Small bilateral pleural effusions are present. The heart is normal in size. The pulmonary vasculature is normal in appearance. The bony structure is intact. IMPRESSION: 1. Chronic interstitial change. 2. Bibasilar atelectasis or infiltrates decreased on the left and unchanged on the right. 3. Small bilateral pleural effusions. Signed by Ajit Stewart MD 09/01/2017 01:59 P
--- NOTE | 2017-09-01 14:41 | IPNPDOC ---
Subjective Date Seen The patient was seen on 09/01/17. Subjective Chief Complaint/HPI The patient is a 82-year-old female admitted with a reason for visit of Dehydration, Uti. Events since last encounter Patient states she feels unchanged from yesterday; she is still have some cough but denies SOB. She has not had any further episodes of nose bleeding or hemoptysis. Constitutional: Denies: Chills, Fever Skin: Denies: Rash Pulmonary: Reports: Cough, Denies: Dyspnea Cardiovascular: Denies: Chest Pain, Palpitations Gastrointestinal: Denies: Nausea, Vomiting, Abdominal Pain Genitourinary: Denies: Dysuria Objective Physical Examination General Exam: Positive: Alert, No Acute Distress (Bright and alert without signs of dyspnea without nasal canula on) Chest Exam: Positive: Rales (bilateral bases), Rhonchi (throughout) Heart Exam: Positive: Rate Normal, Normal S1, Normal S2 Telemetry: Positive: Atrial fibrillation Abdomen Exam: Positive: Normal bowel sounds, Soft Extremity Exam: Negative: Edema, Tenderness, Swelling Neuro Exam: Positive: Cranial Nerves 3-12 NL Psych Exam: Positive: Mental status NL, Mood NL, Memory Intact, Oriented x 3 Assessment /Plan Problems (1) Pneumonia Status: Acute Problem Text: CT 08/30/17: Moderate lower lobe consolidations with small bilateral pleural effusions and mild pulmonary vascular congestion. - Ceftazadime started 08/30/17 - Remains Afebrile, and WBCs continue to be WNL - O2 weaned to 4-5 LPM (2) COPD (chronic obstructive pulmonary disease) Problem Text: No wheezing on exam today, though bilateral lower lobe rhonchi noted - Continue ceftazadime for #1 above (has been tolerating without side effects) - Continue prednisone and nebs - Encourage IS and OOB (3) Paroxysmal atrial fibrillation Problem Text: Patient with newly diagnosed paroxysmal episodes of atrial fibrillation. - On coreg 6.25 mg BID (Increased 08/26 due to HR 127). - Eliquis was started at 2.5 mg BID, but was discontinued on 08/29 due to hemoptysis; Dr. Porter discussed risks and benefits of restarting Eliquis with the patient on 08/31, and she does not want to be on Eliquis due to recent bleeding episodes. She verbalized understanding that without blood thinner she is at risk of having another stroke, which could cause or disability. TSH normal Echo as below (4) Diastolic congestive heart failure Status: Chronic Problem Text: 09/01: I felt that patient had increased rales on exam today and weight is up today; repeat CXR was ordered and was essentially unchanged from 2 days ago, so no changes were made to her diuretics CT results as above in #1. - Initially was given IV lasix for first 24 hours, but this was stopped as breathing troubles were thought to be more due to COPD and pneumonia. - Restart HD lasix 40 mg PO daily on 08/31 (5) Acute CVA (cerebrovascular accident) Status: Acute Discussed With: Lumber Salvager Problem Text: Brain MRI on admission revealed acute CVA. - Eliquis started due to PAF but now being held due to patient refusal - Per Neurology started aspirin 81 mg daily, atorvastatin 40 mg daily, PT/OT Carotid ultrasound showed 70% stenosis on the right and less than 50% stenosis of the left. Echo showed: Hyperdynamic left ventricular systolic function. LVEF 75% by visual estimate. No regional wall motion abnormalities of the left ventricle. Normal left ventricle size and wall thicknesses. Mild left atrial dilatation. Suggestive of mild elevation of pulmonary artery systolic pressure and estimated right ventricle systolic pressure. Normal right ventricle size and systolic function. Central venous pressure estimated to be in the normal range of 5-10 mmHg. Severe mitral annular calcification. No mitral regurgitation. No mitral stenosis. Mild aortic valve sclerosis of a 3-cusp aortic valve. (6) Physical deconditioning Status: Chronic Problem Text: 09/01: Dr. Porter held a a conversation with the patient's daughter and primary caregiver today - they would like to get her home as soon as possible and do not want her to go to short term rehab. I d/w them that if PT does not find her safe for discharge, she would only be able to go home with 24/7 care - currently she has caregivers from 6 am to 9 pm. PFS has been consulted and will need to assist with discharge planning. 08/26: Patient refused to do any substantial PT this morning. PT says patient is not safe for home discharge. Order placed for PFS consult to assess for potential placement 08/25 has not yet participated c PT (7) Ventricular tachycardia Status: Acute Problem Text: 08/29 - 3 beats V-tach overnight. Replace mag 08/26: Has not had another episode since Saturday. K 3.5, was given 40 MEQ PO today. Mg is 1.7. Continue to monitor. 08/25 K 3.7, Mg 1.8-gave 40 po and increased MOX 400 BID to 800 BID 08/24 TTE P 08/24 qhs asx NSVT while sleeping 08/24 CPK 34, T-I 0.02 (8) Urinary tract infection Status: Resolved Problem Text: 08/31: repeat urine culture is negative 08/30: u/a looks unlikely for continued UTI. 08/29: ordered u/a and culture was not collected and was cancelled by person unknown so will be re-ordered. 08/26: doxy is usually not a great choice for UTI since it is not excreted significantly into the urine. will repeat cath U/A today due to change in alertness. 08/26: 4 day course of Doxycycline started today and to be completed on 08/29. D3 ceftriaxone (08/26 start doxy for 4D for complicated UTI) 08/25 changed to doxy for 08/26 08/23 UCX S. epi (9) Type 2 diabetes mellitus Problem Text: 08/26: Stable. Continue on sliding scale insulin. 08/23: Stable, continue sliding scale insulin (10) Hypertension Problem Text: Stable, continue current medications. (11) Osteoarthritis Problem Text: 08/24: Oxycodone restarted at dose of 5 mg by mouth every 6 hours when necessary 08/23: Continue to hold oxycodone due to altered mental status (12) Depression Problem Text: Home escitalopram was held upon admission due to AMS Plan/VTE VTE Prophylaxis Ordered?: Yes Plan Therapy: PT, OT VS, I&O, 24H, Fishbone Vital Signs/I&O Vital Signs Date Time Temp Pulse Resp B/P (MAP) Pulse Ox O2 Delivery O2 Flow Rate FiO2 09/01/17 14:20 20 09/01/17 08:10 Nasal Cannula 4.0 09/01/17 07:46 81 125/66 09/01/17 06:00 97.9 91 I&O- Last 24 Hours up to 6 AM 09/02/17 06:00 Intake Total 1080 ml Output Total 0 ml Balance 1080 ml Laboratory Data 24H LABS Laboratory Tests 2 09/01/17 05:10: Nucleated Red Blood Cells % (auto) 0.0, Anion Gap 5L, Glomerular Filtration Rate > 60.0, Blood Urea Nitrogen 27H, Creatinine 0.76, Sodium Level 134L, Potassium Level 4.5, Chloride Level 89L, Carbon Dioxide Level 40H, Calcium Level 8.6L, Magnesium Level 2.4 CBC/BMP Laboratory Tests 09/01/17 05:10 Red Blood Count 4.64, Mean Corpuscular Volume 93.8, Mean Corpuscular Hemoglobin 31.9, Mean Corpuscular Hemoglobin Concent 34.0, Red Cell Distribution Width 15.4 H, Calcium Level 8.6 L Microbiology Microbiology 08/23/17 Blood Culture - Final, Complete NO GROWTH AFTER 5 DAYS 08/29/17 Urine Culture - Final, Complete 08/23/17 Urine Culture - Final, Complete Staphylococcus Epidermidis STELLA PORTER MD Sep 01, 2017 14:41
[2017-09-01] MEDS: clonazePAM 1 MG TAB PO SCH (20:32)
[2017-09-01 22:00] VITALS: BP 103/57
[2017-09-02] MEDS: DILUENT IV SCH ×2 (00:38→12:31)
[2017-09-02] MEDS: CEFTAZIDIME IV SCH ×2 (00:38→12:31)
[2017-09-02] MEDS: oxyCODONE 5MG TAB PO PRN ×2 (04:48→12:33)
[2017-09-02 05:59] LABS: MEAN CORPUSCULAR HEMOGLOBIN 32.6 pg (27.0-33.0); MEAN CORPUSCULAR HGB CONC 34.4 g/dl (32.0-36.5); MEAN CORPUSCULAR VOLUME 94.8 fl (80.0-96.0); PLATELET COUNT, AUTOMATED 145 10^3/uL (150-450); RED CELL DISTRIBUTION WIDTH 15.2 % (11.5-14.5); WHITE BLOOD COUNT 8.1 10^3/uL (4.0-10.0)
[2017-09-02 06:00] VITALS: BP 136/68
[2017-09-02 06:22] LABS: ANION GAP 4 MEQ/L (8-16); BLOOD UREA NITROGEN 31 MG/DL (7-18); CALCIUM LEVEL 8.7 MG/DL (8.8-10.2); CARBON DIOXIDE LEVEL 44 MEQ/L (21-32); CHLORIDE LEVEL 86 MEQ/L (98-107); CREATININE FOR GFR 0.72 MG/DL (0.55-1.02); GLOMERULAR FILTRATION RATE > 60.0 (>32); GLUCOSE, FASTING 218 MG/DL (83-110); POTASSIUM SERUM 4.3 MEQ/L (3.5-5.1); SODIUM LEVEL 134 MEQ/L (136-145)
[2017-09-02] MEDS: IPRATROPIUM 0.5MG/ALBUTEROL 2.5MG INH SOL UD 3ML (DUONEB)(J7620) NEB SCH ×3 (07:13→19:45)
[2017-09-02] MEDS: ATORVASTATIN 20 MG TAB PO SCH (08:14)
[2017-09-02] MEDS: GABAPENTIN 400 MG CAP PO SCH ×2 (08:14→20:35)
[2017-09-02] MEDS: MULTIVITAMINS/MINERALS THERAP 1 TAB PO SCH (08:14)
[2017-09-02] MEDS: MAGNESIUM OXIDE 400 MG TAB (MAG-OX) PO SCH ×2 (08:14→20:36)
[2017-09-02] MEDS: PANTOPRAZOLE 40MG TAB (PROTONIX) PO SCH (08:15)
[2017-09-02] MEDS: FUROSEMIDE 40 MG TAB PO SCH (08:15)
[2017-09-02] MEDS: predniSONE 20 MG TAB PO SCH ×2 (08:15→20:37)
[2017-09-02] MEDS: ASPIRIN 81 MG ENTERIC TAB PO SCH (08:15)
[2017-09-02] MEDS: HumaLOG INSULIN (NovoLOG) PER UNIT SC SCH ×4 (08:16→20:38)
[2017-09-02] MEDS: CARVedilol 6.25 MG TAB PO SCH ×2 (08:16→20:37)
[2017-09-02] MEDS: NYSTATIN CREAM 15 GM EXT SCH ×2 (08:18→20:39)
[2017-09-02] MEDS: SODIUM CHLORIDE 0.9% NASAL GEL 15MG (AYR) SCH ×4 (08:18→20:39)
[2017-09-02] MEDS: ENOXAPARIN 30 MG/0.3 ML SYR (J1650) SC SCH (08:18)
[2017-09-02] MEDS: RAMIPRIL 1.25 MG CAP PO SCH ×2 (08:18→20:37)
--- NOTE | 2017-09-02 09:12 | IPNPDOC ---
Subjective Date Seen The patient was seen on 09/02/17. Subjective Chief Complaint/HPI The patient is a 82-year-old female admitted with a reason for visit of Dehydration, Uti. Events since last encounter Pt without new concerns this morning. Breathing close to baseline. General: Denies: Fatigue Constitutional: Denies: Chills, Fever ENT: Denies: Head Aches Pulmonary: Reports: Dyspnea (chronic), Cough (chronic) Gastrointestinal: Denies: Nausea, Vomiting Neurological: Reports: Weakness Psych: Reports: Mood Normal Objective Physical Examination General Exam: Positive: Alert, No Acute Distress (Bright and alert without signs of dyspnea with nasal canula on) Chest Exam: Positive: Rales (bilateral bases), Rhonchi (few throughout) Heart Exam: Positive: Rate Normal, Normal S1, Normal S2 Telemetry: Positive: Atrial fibrillation Abdomen Exam: Positive: Normal bowel sounds, Soft Extremity Exam: Negative: Edema, Tenderness, Swelling Neuro Exam: Positive: Cranial Nerves 3-12 NL Psych Exam: Positive: Mental status NL, Mood NL, Memory Intact, Oriented x 3 Assessment /Plan Problems (1) Pneumonia Status: Acute Problem Text: 09/02 Remains afebrile, O2 at 4 LPM. No leukocytosis. Ceftazidime D4. 09/01 CT 08/30/17: Moderate lower lobe consolidations with small bilateral pleural effusions and mild pulmonary vascular congestion. - Ceftazadime started 08/30/17 - Remains Afebrile, and WBCs continue to be WNL - O2 weaned to 4-5 LPM (2) COPD (chronic obstructive pulmonary disease) Problem Text: No wheezing on exam today, though bilateral lower lobe rhonchi noted - Continue ceftazadime for #1 above (has been tolerating without side effects) - Continue prednisone and nebs - Encourage IS and OOB (3) Paroxysmal atrial fibrillation Problem Text: 09/02 rate stable. 09/01 Patient with newly diagnosed paroxysmal episodes of atrial fibrillation. - On coreg 6.25 mg BID (Increased 08/26 due to HR 127). - Eliquis was started at 2.5 mg BID, but was discontinued on 08/29 due to hemoptysis; Dr. Porter discussed risks and benefits of restarting Eliquis with the patient on 08/31, and she does not want to be on Eliquis due to recent bleeding episodes. She verbalized understanding that without blood thinner she is at risk of having another stroke, which could cause or disability. TSH normal Echo as below (4) Diastolic congestive heart failure Status: Chronic Problem Text: 09/01: I felt that patient had increased rales on exam today and weight is up today; repeat CXR was ordered and was essentially unchanged from 2 days ago, so no changes were made to her diuretics CT results as above in #1. - Initially was given IV lasix for first 24 hours, but this was stopped as breathing troubles were thought to be more due to COPD and pneumonia. - Restart HD lasix 40 mg PO daily on 08/31 (5) Acute CVA (cerebrovascular accident) Status: Acute Discussed With: Hat Designer Problem Text: Brain MRI on admission revealed acute CVA. - Eliquis started due to PAF but now being held due to patient refusal - Per Neurology started aspirin 81 mg daily, atorvastatin 40 mg daily, PT/OT Carotid ultrasound showed 70% stenosis on the right and less than 50% stenosis of the left. Echo showed: Hyperdynamic left ventricular systolic function. LVEF 75% by visual estimate. No regional wall motion abnormalities of the left ventricle. Normal left ventricle size and wall thicknesses. Mild left atrial dilatation. Suggestive of mild elevation of pulmonary artery systolic pressure and estimated right ventricle systolic pressure. Normal right ventricle size and systolic function. Central venous pressure estimated to be in the normal range of 5-10 mmHg. Severe mitral annular calcification. No mitral regurgitation. No mitral stenosis. Mild aortic valve sclerosis of a 3-cusp aortic valve. (6) Physical deconditioning Status: Chronic Problem Text: 09/02 - await further PT input today, anticipate need for 24 h care. 09/01: Dr. Porter held a a conversation with the patient's daughter and primary caregiver today - they would like to get her home as soon as possible and do not want her to go to short term rehab. I d/w them that if PT does not find her safe for discharge, she would only be able to go home with 24/7 care - currently she has caregivers from 6 am to 9 pm. PFS has been consulted and will need to assist with discharge planning. 08/26: Patient refused to do any substantial PT this morning. PT says patient is not safe for home discharge. Order placed for PFS consult to assess for potential placement 08/25 has not yet participated c PT (7) Ventricular tachycardia Status: Acute Problem Text: 08/29 - 3 beats V-tach overnight. Replace mag 08/26: Has not had another episode since Saturday. K 3.5, was given 40 MEQ PO today. Mg is 1.7. Continue to monitor. 08/25 K 3.7, Mg 1.8-gave 40 po and increased MOX 400 BID to 800 BID 08/24 TTE P 08/24 qhs asx NSVT while sleeping 08/24 CPK 34, T-I 0.02 (8) Urinary tract infection Status: Resolved Problem Text: 08/31: repeat urine culture is negative 08/30: u/a looks unlikely for continued UTI. 08/29: ordered u/a and culture was not collected and was cancelled by person unknown so will be re-ordered. 08/26: doxy is usually not a great choice for UTI since it is not excreted significantly into the urine. will repeat cath U/A today due to change in alertness. 08/26: 4 day course of Doxycycline started today and to be completed on 08/29. D3 ceftriaxone (08/26 start doxy for 4D for complicated UTI) 08/25 changed to doxy for 08/26 08/23 UCX S. epi (9) Type 2 diabetes mellitus Problem Text: 08/26: Stable. Continue on sliding scale insulin. 08/23: Stable, continue sliding scale insulin (10) Hypertension Problem Text: Stable, continue current medications. (11) Osteoarthritis Problem Text: 08/24: Oxycodone restarted at dose of 5 mg by mouth every 6 hours when necessary 08/23: Continue to hold oxycodone due to altered mental status (12) Depression Problem Text: Home escitalopram was held upon admission due to AMS Plan/VTE VTE Prophylaxis Ordered?: Yes Plan Therapy: PT, OT VS, I&O, 24H, Fishbone Vital Signs/I&O Vital Signs Date Time Temp Pulse Resp B/P (MAP) Pulse Ox O2 Delivery O2 Flow Rate FiO2 09/02/17 08:16 75 136/68 09/02/17 06:00 97.7 20 94 High Flow Cannula 4.0 Laboratory Data 24H LABS Laboratory Tests 2 09/01/17 17:37: Bedside Glucose (Misc Panel) 201H 09/02/17 05:39: Nucleated Red Blood Cells % (auto) 0.0, Anion Gap 4L, Glomerular Filtration Rate > 60.0, Blood Urea Nitrogen 31H, Creatinine 0.72, Sodium Level 134L, Potassium Level 4.3, Chloride Level 86L, Carbon Dioxide Level 44H, Calcium Level 8.7L CBC/BMP Laboratory Tests 09/02/17 05:39 Red Blood Count 4.45, Mean Corpuscular Volume 94.8, Mean Corpuscular Hemoglobin 32.6, Mean Corpuscular Hemoglobin Concent 34.4, Red Cell Distribution Width 15.2 H, Calcium Level 8.7 L Microbiology Microbiology 08/23/17 Blood Culture - Final, Complete NO GROWTH AFTER 5 DAYS 08/29/17 Urine Culture - Final, Complete 08/23/17 Urine Culture - Final, Complete Staphylococcus Epidermidis C[place] BEE PA-C Sep 02, 2017 09:12
[2017-09-02 14:00] VITALS: BP 140/70
[2017-09-02 19:45] VITALS: O2SAT 98
[2017-09-02] MEDS: clonazePAM 1 MG TAB PO SCH (20:36)
[2017-09-02 22:00] VITALS: BP 123/76
[2017-09-03] MEDS: DILUENT IV SCH ×2 (01:08→13:11)
[2017-09-03] MEDS: CEFTAZIDIME IV SCH ×2 (01:08→13:11)
[2017-09-03] MEDS: IPRATROPIUM 0.5MG/ALBUTEROL 2.5MG INH SOL UD 3ML (DUONEB)(J7620) NEB SCH ×4 (02:00→20:00)
[2017-09-03 06:00] VITALS: BP 141/67
[2017-09-03 06:32] LABS: MEAN CORPUSCULAR HEMOGLOBIN 32.3 pg (27.0-33.0); MEAN CORPUSCULAR HGB CONC 33.9 g/dl (32.0-36.5); MEAN CORPUSCULAR VOLUME 95.3 fl (80.0-96.0); PLATELET COUNT, AUTOMATED 158 10^3/uL (150-450); RED CELL DISTRIBUTION WIDTH 15.3 % (11.5-14.5); WHITE BLOOD COUNT 8.4 10^3/uL (4.0-10.0)
[2017-09-03 06:45] LABS: ANION GAP 5 MEQ/L (8-16); BLOOD UREA NITROGEN 31 MG/DL (7-18); CALCIUM LEVEL 8.4 MG/DL (8.8-10.2); CARBON DIOXIDE LEVEL 39 MEQ/L (21-32); CHLORIDE LEVEL 90 MEQ/L (98-107); GLOMERULAR FILTRATION RATE > 60.0 (>32); GLUCOSE, FASTING 224 MG/DL (83-110); POTASSIUM SERUM 4.4 MEQ/L (3.5-5.1); SODIUM LEVEL 134 MEQ/L (136-145)
[2017-09-03] MEDS: HumaLOG INSULIN (NovoLOG) PER UNIT SC SCH (07:48)
[2017-09-03] MEDS: ENOXAPARIN 30 MG/0.3 ML SYR (J1650) SC SCH (07:50)
[2017-09-03 09:00] VITALS: BP 110/64
[2017-09-03] MEDS: oxyCODONE 5MG TAB PO PRN (09:12)
[2017-09-03] MEDS: PANTOPRAZOLE 40MG TAB (PROTONIX) PO SCH (11:02)
[2017-09-03] MEDS: MULTIVITAMINS/MINERALS THERAP 1 TAB PO SCH (11:02)
[2017-09-03] MEDS: ATORVASTATIN 20 MG TAB PO SCH (11:02)
[2017-09-03] MEDS: predniSONE 20 MG TAB PO SCH ×2 (11:02→21:08)
[2017-09-03] MEDS: FUROSEMIDE 40 MG TAB PO SCH (11:03)
[2017-09-03] MEDS: GABAPENTIN 400 MG CAP PO SCH ×2 (11:03→21:09)
[2017-09-03] MEDS: CARVedilol 6.25 MG TAB PO SCH ×2 (11:03→20:56)
[2017-09-03] MEDS: ASPIRIN 81 MG ENTERIC TAB PO SCH (11:04)
[2017-09-03] MEDS: RAMIPRIL 1.25 MG CAP PO SCH ×2 (11:04→21:10)
[2017-09-03] MEDS: MAGNESIUM OXIDE 400 MG TAB (MAG-OX) PO SCH ×2 (11:04→21:09)
[2017-09-03] MEDS: SODIUM CHLORIDE 0.9% NASAL GEL 15MG (AYR) SCH ×4 (11:05→21:10)
[2017-09-03] MEDS: NYSTATIN CREAM 15 GM EXT SCH ×2 (11:05→21:10)
--- NOTE | 2017-09-03 12:17 | IPNPDOC ---
Subjective Date Seen The patient was seen on 09/03/17. Subjective Chief Complaint/HPI The patient is a 82-year-old female admitted with a reason for visit of Dehydration, Uti. Events since last encounter Feels well today. No further hypoxemia last 24 hours on 4 liters NC Constitutional: Denies: Chills Pulmonary: Reports: Dyspnea, Cough Cardiovascular: Denies: Chest Pain, Palpitations Gastrointestinal: Denies: Nausea, Vomiting, Abdominal Pain, Diarrhea, Constipation Objective Physical Examination General Exam: Positive: Alert, No Acute Distress (Bright and alert without signs of dyspnea with nasal canula on) Chest Exam: Positive: Normal air movement, Rales (bilateral bases), Rhonchi ( cleared with cough) Heart Exam: Positive: Rate Normal, Normal S1, Normal S2 Telemetry: Positive: Atrial fibrillation Abdomen Exam: Positive: Normal bowel sounds, Soft Extremity Exam: Negative: Edema, Tenderness, Swelling Neuro Exam: Positive: Cranial Nerves 3-12 NL Psych Exam: Positive: Mental status NL, Mood NL, Memory Intact, Oriented x 3 Assessment /Plan Problems (1) Pneumonia Status: Acute Problem Text: 09/03 - Fortaz IV D5 for HAP - requiring 4 liters NC (Not on O2 at home previously but will likely need this up on d/c) 09/01 CT 08/30/17: Moderate lower lobe consolidations with small bilateral pleural effusions and mild pulmonary vascular congestion. - Ceftazadime started 08/30/17 - (2) COPD (chronic obstructive pulmonary disease) Problem Text: 09/03 Cont Fortaz Decrease Prednisone cont nebs/O2/IS/OOB (3) Paroxysmal atrial fibrillation Problem Text: 09/03 - rate controlled 09/01 Patient with newly diagnosed paroxysmal episodes of atrial fibrillation. - On coreg 6.25 mg BID (Increased 08/26 due to HR 127). - Eliquis was started at 2.5 mg BID, but was discontinued on 08/29 due to hemoptysis; Dr. Porter discussed risks and benefits of restarting Eliquis with the patient on 08/31, and she does not want to be on Eliquis due to recent bleeding episodes. She verbalized understanding that without blood thinner she is at risk of having another stroke, which could cause or disability. TSH normal Echo as below (4) Diastolic congestive heart failure Status: Chronic Problem Text: 09/03 - Stable on Lasix [address] results as above in #1. - Initially was given IV lasix for first 24 hours, but this was stopped as breathing troubles were thought to be more due to COPD and pneumonia. - Restart HD lasix 40 mg PO daily on 08/31 (5) Acute CVA (cerebrovascular accident) Status: Acute Discussed With: [employer] Software Test Engineer Problem Text: Brain MRI on admission revealed acute CVA. - Eliquis started due to PAF but now being held due to patient refusal - Per Neurology started aspirin 81 mg daily, atorvastatin 40 mg daily, PT/OT Carotid ultrasound showed 70% stenosis on the right and less than 50% stenosis of the left. Echo showed: Hyperdynamic left ventricular systolic function. LVEF 75% by visual estimate. No regional wall motion abnormalities of the left ventricle. Normal left ventricle size and wall thicknesses. Mild left atrial dilatation. Suggestive of mild elevation of pulmonary artery systolic pressure and estimated right ventricle systolic pressure. Normal right ventricle size and systolic function. Central venous pressure estimated to be in the normal range of 5-10 mmHg. Severe mitral annular calcification. No mitral regurgitation. No mitral stenosis. Mild aortic valve sclerosis of a 3-cusp aortic valve. (6) Physical deconditioning Status: Chronic Problem Text: 09/02 - await further PT input today, anticipate need for 24 h care. 09/01: Dr. Porter held a a conversation with the patient's daughter and primary caregiver today - they would like to get her home as soon as possible and do not want her to go to short term rehab. I d/w them that if PT does not find her safe for discharge, she would only be able to go home with 24/7 care - currently she has caregivers from 6 am to 9 pm. PFS has been consulted and will need to assist with discharge planning. 08/26: Patient refused to do any substantial PT this morning. PT says patient is not safe for home discharge. Order placed for PFS consult to assess for potential placement 08/25 has not yet participated c PT (7) Ventricular tachycardia Status: Acute Problem Text: 08/29 - 3 beats V-tach overnight. Replace mag 08/26: Has not had another episode since Saturday. K 3.5, was given 40 MEQ PO today. Mg is 1.7. Continue to monitor. 08/25 K 3.7, Mg 1.8-gave 40 po and increased MOX 400 BID to 800 BID 08/24 TTE P 08/24 qhs asx NSVT while sleeping 08/24 CPK 34, T-I 0.02 (8) Urinary tract infection Status: Resolved Problem Text: 08/31: repeat urine culture is negative 08/30: u/a looks unlikely for continued UTI. 08/29: ordered u/a and culture was not collected and was cancelled by person unknown so will be re-ordered. 08/26: doxy is usually not a great choice for UTI since it is not excreted significantly into the urine. will repeat cath U/A today due to change in alertness. 08/26: 4 day course of Doxycycline started today and to be completed on 08/29. D3 ceftriaxone (08/26 start doxy for 4D for complicated UTI) 08/25 changed to doxy for 08/26 08/23 UCX S. epi (9) Type 2 diabetes mellitus Problem Text: 09/03 - restart HD Glimeperide 1 mg daily - D/C sliding scale (10) Hypertension Problem Text: Stable, continue current medications. (11) Osteoarthritis Problem Text: 08/24: Oxycodone restarted at dose of 5 mg by mouth every 6 hours when necessary 08/23: Continue to hold oxycodone due to altered mental status (12) Depression Problem Text: Home escitalopram was held upon admission due to AMS Plan/VTE VTE Prophylaxis Ordered?: Yes (Lovenox) Plan Therapy: PT, OT Disposition Patient plans to go home - PFS involved - will need [address] PT[address] Dr. waller will need to write letter of Necessity VS, I&O, 24H, Fishbone Vital Signs/I&O Vital Signs Date Time Temp Pulse Resp B/P (MAP) Pulse Ox O2 Delivery O2 Flow Rate FiO2 09/03/17 11:04 110/64 09/03/17 11:03 70 09/03/17 09:42 17 09/03/17 09:30 Nasal Cannula 3.0 09/03/17 09:00 97.6 96 I&O- Last 24 Hours up to 6 AM 09/04/17 06:00 Intake Total 320 ml Balance 320 ml Laboratory Data 24H LABS Laboratory Tests 2 09/02/17 16:47: Bedside Glucose (Misc Panel) 273H 09/02/17 20:06: Bedside Glucose (Misc Panel) 147H 09/03/17 06:17: Nucleated Red Blood Cells % (auto) 0.0, Anion Gap 5L, Glomerular Filtration Rate > 60.0, Blood Urea Nitrogen 31H, Creatinine 0.70, Sodium Level 134L, Potassium Level 4.4, Chloride Level 90L, Carbon Dioxide Level 39H, Calcium Level 8.4L CBC/BMP Laboratory Tests 09/03/17 06:17 Red Blood Count 4.67, Mean Corpuscular Volume 95.3, Mean Corpuscular Hemoglobin 32.3, Mean Corpuscular Hemoglobin Concent 33.9, Red Cell Distribution Width 15.3 H, Calcium Level 8.4 L Microbiology Microbiology 08/29/17 Urine Culture - Final, Complete MARILU ALVARADO PA-C Sep 03, 2017 12:17
[2017-09-03 14:00] VITALS: BP 104/56
[2017-09-03] MEDS: clonazePAM 1 MG TAB PO SCH (21:09)
[2017-09-03 22:00] VITALS: BP 100/63
[2017-09-04] MEDS: CEFTAZIDIME IV SCH ×2 (01:08→12:45)
[2017-09-04] MEDS: DILUENT IV SCH ×2 (01:08→12:45)
[2017-09-04] MEDS: IPRATROPIUM 0.5MG/ALBUTEROL 2.5MG INH SOL UD 3ML (DUONEB)(J7620) NEB SCH ×4 (01:56→22:19)
[2017-09-04 06:00] VITALS: BP 140/82
[2017-09-04 06:32] LABS: MEAN CORPUSCULAR HEMOGLOBIN 32.3 pg (27.0-33.0); MEAN CORPUSCULAR HGB CONC 34.3 g/dl (32.0-36.5); MEAN CORPUSCULAR VOLUME 94.3 fl (80.0-96.0); PLATELET COUNT, AUTOMATED 169 10^3/uL (150-450); RED CELL DISTRIBUTION WIDTH 15.3 % (11.5-14.5); WHITE BLOOD COUNT 8.2 10^3/uL (4.0-10.0)
[2017-09-04 06:51] LABS: ANION GAP 2 MEQ/L (8-16); BLOOD UREA NITROGEN 29 MG/DL (7-18); CALCIUM LEVEL 8.9 MG/DL (8.8-10.2); CARBON DIOXIDE LEVEL 45 MEQ/L (21-32); CHLORIDE LEVEL 88 MEQ/L (98-107); CREATININE FOR GFR 0.73 MG/DL (0.55-1.02); GLOMERULAR FILTRATION RATE > 60.0 (>32); GLUCOSE, FASTING 204 MG/DL (83-110); POTASSIUM SERUM 4.5 MEQ/L (3.5-5.1); SODIUM LEVEL 135 MEQ/L (136-145)
[2017-09-04] MEDS: GLIMEPIRIDE 1 MG TABLET PO SCH (08:21)
[2017-09-04] MEDS: GABAPENTIN 400 MG CAP PO SCH ×2 (08:22→21:25)
[2017-09-04] MEDS: MULTIVITAMINS/MINERALS THERAP 1 TAB PO SCH (08:22)
[2017-09-04] MEDS: RAMIPRIL 1.25 MG CAP PO SCH ×2 (08:22→21:26)
[2017-09-04] MEDS: FUROSEMIDE 40 MG TAB PO SCH (08:22)
[2017-09-04] MEDS: PANTOPRAZOLE 40MG TAB (PROTONIX) PO SCH (08:22)
[2017-09-04] MEDS: VITAMIN D 50,000 UNITS CAPSULE (ERGOCALCIFEROL 1.25MG) PO SCH (08:23)
[2017-09-04] MEDS: predniSONE 20 MG TAB PO SCH ×2 (08:23→21:25)
[2017-09-04] MEDS: ASPIRIN 81 MG ENTERIC TAB PO SCH (08:23)
[2017-09-04] MEDS: MAGNESIUM OXIDE 400 MG TAB (MAG-OX) PO SCH ×2 (08:23→21:27)
[2017-09-04] MEDS: ATORVASTATIN 20 MG TAB PO SCH (08:23)
[2017-09-04] MEDS: SODIUM CHLORIDE 0.9% NASAL GEL 15MG (AYR) SCH ×4 (08:24→21:28)
[2017-09-04] MEDS: ENOXAPARIN 30 MG/0.3 ML SYR (J1650) SC SCH (08:24)
[2017-09-04] MEDS: NYSTATIN CREAM 15 GM EXT SCH ×2 (08:24→21:27)
[2017-09-04] MEDS: CARVedilol 6.25 MG TAB PO SCH ×2 (08:24→21:26)
--- NOTE | 2017-09-04 09:37 | IPNPDOC ---
Subjective Date Seen The patient was seen on 09/04/17. Subjective Chief Complaint/HPI The patient is a 82-year-old female admitted with a reason for visit of Dehydration, Uti. Events since last encounter Feels good. Oxygen saturations were 85% when I came in the room (her oxygen was not on her face) Sats improved to 94% with 4 liters NC Constitutional: Denies: Chills, Fever Pulmonary: Reports: Cough, Denies: Dyspnea Cardiovascular: Denies: Chest Pain, Palpitations, Orthopnea Gastrointestinal: Denies: Nausea, Vomiting, Abdominal Pain, Diarrhea, Constipation Objective Physical Examination General Exam: Positive: Alert, No Acute Distress (Bright and alert without signs of dyspnea with nasal canula on) Chest Exam: Positive: Normal air movement, Rales (bilateral bases), Rhonchi ( cleared with cough) Heart Exam: Positive: Rate Normal, Normal S1, Normal S2 Telemetry: Positive: Atrial fibrillation Abdomen Exam: Positive: Normal bowel sounds, Soft, Negative: Tenderness Extremity Exam: Negative: Edema, Tenderness, Swelling Psych Exam: Positive: Mental status NL Assessment /Plan Problems (1) Pneumonia Status: Acute Problem Text: Russell D#6 for HAP - Still requiring oxygen (Sats dropped to 85% on RA this am) - not previously on oxygen at home - will likely need this upon discharge 09/01 CT 08/30/17: Moderate lower lobe consolidations with small bilateral pleural effusions and mild pulmonary vascular congestion. - Ceftazadime started 08/30/17 - (2) COPD (chronic obstructive pulmonary disease) Problem Text: 09/03 Cont Fortaz Decrease Prednisone cont nebs/O2/IS/OOB (3) Paroxysmal atrial fibrillation Problem Text: 09/03 - rate controlled 09/01 Patient with newly diagnosed paroxysmal episodes of atrial fibrillation. - On coreg 6.25 mg BID (Increased 08/26 due to HR 127). - Eliquis was started at 2.5 mg BID, but was discontinued on 08/29 due to hemoptysis; Dr. Porter discussed risks and benefits of restarting Eliquis with the patient on 08/31, and she does not want to be on Eliquis due to recent bleeding episodes. She verbalized understanding that without blood thinner she is at risk of having another stroke, which could cause or disability. TSH normal Echo as below (4) Diastolic congestive heart failure Status: Chronic Problem Text: 09/03 - Stable on Lasix [address] results as above in #1. - Initially was given IV lasix for first 24 hours, but this was stopped as breathing troubles were thought to be more due to COPD and pneumonia. - Restart HD lasix 40 mg PO daily on 08/31 (5) Acute CVA (cerebrovascular accident) Status: Acute Discussed With: Certified Wellness Program Coordinator Problem Text: Brain MRI on admission revealed acute CVA. - Eliquis started due to PAF but now being held due to patient refusal - Per Neurology started aspirin 81 mg daily, atorvastatin 40 mg daily, PT/OT Carotid ultrasound showed 70% stenosis on the right and less than 50% stenosis of the left. Echo showed: Hyperdynamic left ventricular systolic function. LVEF 75% by visual estimate. No regional wall motion abnormalities of the left ventricle. Normal left ventricle size and wall thicknesses. Mild left atrial dilatation. Suggestive of mild elevation of pulmonary artery systolic pressure and estimated right ventricle systolic pressure. Normal right ventricle size and systolic function. Central venous pressure estimated to be in the normal range of 5-10 mmHg. Severe mitral annular calcification. No mitral regurgitation. No mitral stenosis. Mild aortic valve sclerosis of a 3-cusp aortic valve. (6) Physical deconditioning Status: Chronic Problem Text: 09/02 - await further PT input today, anticipate need for 24 h care. 09/01: Dr. Porter held a a conversation with the patient's daughter and primary caregiver today - they would like to get her home as soon as possible and do not want her to go to short term rehab. I d/w them that if PT does not find her safe for discharge, she would only be able to go home with 24/7 care - currently she has caregivers from 6 am to 9 pm. PFS has been consulted and will need to assist with discharge planning. 08/26: Patient refused to do any substantial PT this morning. PT says patient is not safe for home discharge. Order placed for PFS consult to assess for potential placement 08/25 has not yet participated c PT (7) Ventricular tachycardia Status: Acute Problem Text: 08/29 - 3 beats V-tach overnight. Replace mag 08/26: Has not had another episode since Saturday. K 3.5, was given 40 MEQ PO today. Mg is 1.7. Continue to monitor. 08/25 K 3.7, Mg 1.8-gave 40 po and increased MOX 400 BID to 800 BID 08/24 TTE P 08/24 qhs asx NSVT while sleeping 08/24 CPK 34, T-I 0.02 (8) Urinary tract infection Status: Resolved Problem Text: 08/31: repeat urine culture is negative 08/30: u/a looks unlikely for continued UTI. 08/29: ordered u/a and culture was not collected and was cancelled by person unknown so will be re-ordered. 08/26: doxy is usually not a great choice for UTI since it is not excreted significantly into the urine. will repeat cath U/A today due to change in alertness. 08/26: 4 day course of Doxycycline started today and to be completed on 08/29. D3 ceftriaxone (08/26 start doxy for 4D for complicated UTI) 08/25 changed to doxy for 08/26 08/23 UCX S. epi (9) Type 2 diabetes mellitus Problem Text: 09/04 - cont HD Glimeperide (10) Hypertension Problem Text: Stable, continue current medications. (11) Osteoarthritis Problem Text: 08/24: Oxycodone restarted at dose of 5 mg by mouth every 6 hours when necessary 08/23: Continue to hold oxycodone due to altered mental status (12) Depression Problem Text: Home escitalopram was held upon admission due to AMS Plan/VTE VTE Prophylaxis Ordered?: Yes (Lovenox) Plan Therapy: PT, OT VS, I&O, 24H, Fishbone Vital Signs/I&O Vital Signs Date Time Temp Pulse Resp B/P (MAP) Pulse Ox O2 Delivery O2 Flow Rate FiO2 09/04/17 08:24 78 140/82 09/04/17 06:00 97.9 19 99 High Flow Cannula 3.0 Laboratory Data 24H LABS Laboratory Tests 2 09/03/17 11:58: Bedside Glucose (Misc Panel) 153H 09/04/17 05:56: Nucleated Red Blood Cells % (auto) 0.0, Anion Gap 2L, Glomerular Filtration Rate > 60.0, Blood Urea Nitrogen 29H, Creatinine 0.73, Sodium Level 135L, Potassium Level 4.5, Chloride Level 88L, Carbon Dioxide Level 45H, Calcium Level 8.9 CBC/BMP Laboratory Tests 09/04/17 05:56 Red Blood Count 4.89, Mean Corpuscular Volume 94.3, Mean Corpuscular Hemoglobin 32.3, Mean Corpuscular Hemoglobin Concent 34.3, Red Cell Distribution Width 15.3 H, Calcium Level 8.9 Microbiology Microbiology 08/29/17 Urine Culture - Final, Complete MARILU ALVARADO PA-C Sep 04, 2017 09:37
[2017-09-04 14:00] VITALS: BP 110/63
[2017-09-04] MEDS: oxyCODONE 5MG TAB PO PRN (17:13)
[2017-09-04] MEDS: clonazePAM 1 MG TAB PO SCH (21:26)
[2017-09-04 22:00] VITALS: BP 123/61
[2017-09-05] MEDS: CEFTAZIDIME IV SCH ×2 (01:08→13:41)
[2017-09-05] MEDS: DILUENT IV SCH ×2 (01:08→13:41)
[2017-09-05] MEDS: IPRATROPIUM 0.5MG/ALBUTEROL 2.5MG INH SOL UD 3ML (DUONEB)(J7620) NEB SCH ×4 (03:11→21:15)
[2017-09-05 06:00] VITALS: BP 157/82
[2017-09-05 06:48] LABS: MEAN CORPUSCULAR HEMOGLOBIN 32.5 pg (27.0-33.0); MEAN CORPUSCULAR HGB CONC 34.4 g/dl (32.0-36.5); MEAN CORPUSCULAR VOLUME 94.3 fl (80.0-96.0); PLATELET COUNT, AUTOMATED 169 10^3/uL (150-450); RED CELL DISTRIBUTION WIDTH 15.2 % (11.5-14.5); WHITE BLOOD COUNT 7.9 10^3/uL (4.0-10.0)
[2017-09-05 07:21] LABS: ANION GAP 7 MEQ/L (8-16); BLOOD UREA NITROGEN 30 MG/DL (7-18); CALCIUM LEVEL 8.4 MG/DL (8.8-10.2); CARBON DIOXIDE LEVEL 37 MEQ/L (21-32); CHLORIDE LEVEL 91 MEQ/L (98-107); CREATININE FOR GFR 0.79 MG/DL (0.55-1.02); GLOMERULAR FILTRATION RATE > 60.0 (>32); GLUCOSE, FASTING 243 MG/DL (83-110); SODIUM LEVEL 135 MEQ/L (136-145)
[2017-09-05] MEDS: ENOXAPARIN 30 MG/0.3 ML SYR (J1650) SC SCH (08:12)
[2017-09-05] MEDS: ATORVASTATIN 20 MG TAB PO SCH (08:13)
[2017-09-05] MEDS: RAMIPRIL 1.25 MG CAP PO SCH ×2 (08:13→20:15)
[2017-09-05] MEDS: GLIMEPIRIDE 1 MG TABLET PO SCH (08:13)
[2017-09-05] MEDS: ASPIRIN 81 MG ENTERIC TAB PO SCH (08:14)
[2017-09-05] MEDS: MULTIVITAMINS/MINERALS THERAP 1 TAB PO SCH (08:14)
[2017-09-05] MEDS: FUROSEMIDE 40 MG TAB PO SCH (08:14)
[2017-09-05] MEDS: predniSONE 20 MG TAB PO SCH ×2 (08:14→20:14)
[2017-09-05] MEDS: CARVedilol 6.25 MG TAB PO SCH ×2 (08:14→20:16)
[2017-09-05] MEDS: PANTOPRAZOLE 40MG TAB (PROTONIX) PO SCH (08:14)
[2017-09-05] MEDS: GABAPENTIN 400 MG CAP PO SCH ×2 (08:14→20:15)
[2017-09-05] MEDS: SODIUM CHLORIDE 0.9% NASAL GEL 15MG (AYR) SCH ×4 (08:15→20:15)
[2017-09-05] MEDS: NYSTATIN CREAM 15 GM EXT SCH ×2 (08:15→20:15)
[2017-09-05] MEDS: MAGNESIUM OXIDE 400 MG TAB (MAG-OX) PO SCH ×2 (08:15→20:14)
--- NOTE | 2017-09-05 11:24 | IPNPDOC ---
Subjective Date Seen The patient was seen on 09/05/17. Subjective Chief Complaint/HPI The patient is a 82-year-old female admitted with a reason for visit of Dehydration, Uti. Events since last encounter Oxygen requirements less per nursing but still with rattling cough. Denies SOB Constitutional: Denies: Chills, Fever Pulmonary: Reports: Cough, Denies: Dyspnea Cardiovascular: Denies: Chest Pain, Palpitations, Orthopnea Gastrointestinal: Denies: Nausea, Vomiting, Abdominal Pain, Diarrhea, Constipation Objective Physical Examination General Exam: Positive: Alert, No Acute Distress (Bright and alert without signs of dyspnea with nasal canula on) Chest Exam: Positive: Normal air movement, Rales (bilateral bases), Rhonchi ( cleared with cough) Heart Exam: Positive: Rate Normal, Normal S1, Normal S2 Telemetry: Positive: Atrial fibrillation Abdomen Exam: Positive: Normal bowel sounds, Soft, Negative: Tenderness Extremity Exam: Negative: Edema, Tenderness, Swelling Psych Exam: Positive: Mental status NL Assessment /Plan Problems (1) Pneumonia Status: Acute Problem Text: 09/05 - Fortaz D#7 for HAP - Still with rattling BS and cough. Repeat CXR today not previously on oxygen at home - will likely need this upon discharge - continue to try to wena 09/01 CT 08/30/17: Moderate lower lobe consolidations with small bilateral pleural effusions and mild pulmonary vascular congestion. - Ceftazadime started 08/30/17 - (2) COPD (chronic obstructive pulmonary disease) Problem Text: 09/03 Cont Fortaz Decrease Prednisone cont nebs/O2/IS/OOB (3) Paroxysmal atrial fibrillation Problem Text: 09/03 - rate controlled 09/01 Patient with newly diagnosed paroxysmal episodes of atrial fibrillation. - On coreg 6.25 mg BID (Increased 08/26 due to HR 127). - Eliquis was started at 2.5 mg BID, but was discontinued on 08/29 due to hemoptysis; Dr. Porter discussed risks and benefits of restarting Eliquis with the patient on 08/31, and she does not want to be on Eliquis due to recent bleeding episodes. She verbalized understanding that without blood thinner she is at risk of having another stroke, which could cause or disability. TSH normal Echo as below (4) Diastolic congestive heart failure Status: Chronic Problem Text: 09/03 - Stable on Lasix [address] results as above in #1. - Initially was given IV lasix for first 24 hours, but this was stopped as breathing troubles were thought to be more due to COPD and pneumonia. - Restart HD lasix 40 mg PO daily on 08/31 (5) Acute CVA (cerebrovascular accident) Status: Acute Discussed With: Marine Rigger Problem Text: Brain MRI on admission revealed acute CVA. - Eliquis started due to PAF but now being held due to patient refusal - Per Neurology started aspirin 81 mg daily, atorvastatin 40 mg daily, PT/OT Carotid ultrasound showed 70% stenosis on the right and less than 50% stenosis of the left. Echo showed: Hyperdynamic left ventricular systolic function. LVEF 75% by visual estimate. No regional wall motion abnormalities of the left ventricle. Normal left ventricle size and wall thicknesses. Mild left atrial dilatation. Suggestive of mild elevation of pulmonary artery systolic pressure and estimated right ventricle systolic pressure. Normal right ventricle size and systolic function. Central venous pressure estimated to be in the normal range of 5-10 mmHg. Severe mitral annular calcification. No mitral regurgitation. No mitral stenosis. Mild aortic valve sclerosis of a 3-cusp aortic valve. (6) Physical deconditioning Status: Chronic Problem Text: 09/02 - await further PT input today, anticipate need for 24 h care. 09/01: Dr. Porter held a a conversation with the patient's daughter and primary caregiver today - they would like to get her home as soon as possible and do not want her to go to short term rehab. I d/w them that if PT does not find her safe for discharge, she would only be able to go home with 24/7 care - currently she has caregivers from 6 am to 9 pm. PFS has been consulted and will need to assist with discharge planning. 08/26: Patient refused to do any substantial PT this morning. PT says patient is not safe for home discharge. Order placed for PFS consult to assess for potential placement 08/25 has not yet participated c PT (7) Ventricular tachycardia Status: Acute Problem Text: 08/29 - 3 beats V-tach overnight. Replace mag 08/26: Has not had another episode since Saturday. K 3.5, was given 40 MEQ PO today. Mg is 1.7. Continue to monitor. 08/25 K 3.7, Mg 1.8-gave 40 po and increased MOX 400 BID to 800 BID 08/24 TTE P 08/24 qhs asx NSVT while sleeping 08/24 CPK 34, T-I 0.02 (8) Urinary tract infection Status: Resolved Problem Text: 08/31: repeat urine culture is negative 08/30: u/a looks unlikely for continued UTI. 08/29: ordered u/a and culture was not collected and was cancelled by person unknown so will be re-ordered. 08/26: doxy is usually not a great choice for UTI since it is not excreted significantly into the urine. will repeat cath U/A today due to change in alertness. 08/26: 4 day course of Doxycycline started today and to be completed on 08/29. D3 ceftriaxone (08/26 start doxy for 4D for complicated UTI) 08/25 changed to doxy for 08/26 08/23 UCX S. epi (9) Type 2 diabetes mellitus Problem Text: 09/04 - cont HD Glimeperide (10) Hypertension Problem Text: Stable, continue current medications. (11) Osteoarthritis Problem Text: 08/24: Oxycodone restarted at dose of 5 mg by mouth every 6 hours when necessary 08/23: Continue to hold oxycodone due to altered mental status (12) Depression Problem Text: Home escitalopram was held upon admission due to AMS Plan/VTE VTE Prophylaxis Ordered?: Yes (Lovenox) Plan Therapy: PT, OT Disposition PFS working on arranging 24 hour care at home through patient's insurance VS, I&O, 24H, Fishbone Vital Signs/I&O Vital Signs Date Time Temp Pulse Resp B/P (MAP) Pulse Ox O2 Delivery O2 Flow Rate FiO2 09/05/17 08:14 55 157/82 09/05/17 06:00 97.9 18 90 Nasal Cannula 4.0 Laboratory Data 24H LABS Laboratory Tests 2 09/04/17 11:22: Bedside Glucose (Misc Panel) 238H 09/04/17 17:09: Bedside Glucose (Misc Panel) 170H 09/04/17 20:02: Bedside Glucose (Misc Panel) 183H 09/05/17 06:19: Nucleated Red Blood Cells % (auto) 0.0, Anion Gap 7L, Glomerular Filtration Rate > 60.0, Blood Urea Nitrogen 30H, Creatinine 0.79, Sodium Level 135L, Potassium Level 4.0, Chloride Level 91L, Carbon Dioxide Level 37H, Calcium Level 8.4L CBC/BMP Laboratory Tests 09/05/17 06:19 Red Blood Count 5.11, Mean Corpuscular Volume 94.3, Mean Corpuscular Hemoglobin 32.5, Mean Corpuscular Hemoglobin Concent 34.4, Red Cell Distribution Width 15.2 H, Calcium Level 8.4 L Microbiology Microbiology 08/29/17 Urine Culture - Final, Complete MARILU ALVARADO PA-C Sep 05, 2017 11:24
--- NOTE | 2017-09-05 13:34 | REP ---
Chest two views HISTORY: Hypoxia Comparison: 09/01/2017 An increase in interstitial markings is present in the lungs consistent with chronic interstitial change. The heart is normal in size. The pulmonary vasculature is normal in appearance. The bony structure is intact. IMPRESSION: Chronic interstitial change. Signed by Ajit Stewart MD 09/05/2017 01:25 P
[2017-09-05 14:00] VITALS: BP 118/63
[2017-09-05] MEDS: clonazePAM 1 MG TAB PO SCH (20:15)
[2017-09-05 22:00] VITALS: BP 119/70
[2017-09-06] MEDS: DILUENT IV SCH ×2 (00:20→13:28)
[2017-09-06] MEDS: CEFTAZIDIME IV SCH ×2 (00:20→13:28)
[2017-09-06] MEDS: oxyCODONE 5MG TAB PO PRN ×3 (01:05→21:22)
[2017-09-06] MEDS: IPRATROPIUM 0.5MG/ALBUTEROL 2.5MG INH SOL UD 3ML (DUONEB)(J7620) NEB SCH ×4 (01:10→20:00)
[2017-09-06 06:00] VITALS: BP 139/75
[2017-09-06 06:39] LABS: MEAN CORPUSCULAR HEMOGLOBIN 32.9 pg (27.0-33.0); MEAN CORPUSCULAR HGB CONC 34.2 g/dl (32.0-36.5); PLATELET COUNT, AUTOMATED 153 10^3/uL (150-450); RED CELL DISTRIBUTION WIDTH 15.2 % (11.5-14.5); WHITE BLOOD COUNT 6.9 10^3/uL (4.0-10.0)
[2017-09-06 06:56] LABS: ANION GAP 6 MEQ/L (8-16); BLOOD UREA NITROGEN 29 MG/DL (7-18); CALCIUM LEVEL 8.3 MG/DL (8.8-10.2); CARBON DIOXIDE LEVEL 37 MEQ/L (21-32); CHLORIDE LEVEL 93 MEQ/L (98-107); CREATININE FOR GFR 0.76 MG/DL (0.55-1.02); GLOMERULAR FILTRATION RATE > 60.0 (>32); GLUCOSE, FASTING 194 MG/DL (83-110); POTASSIUM SERUM 4.5 MEQ/L (3.5-5.1); SODIUM LEVEL 136 MEQ/L (136-145)
[2017-09-06] MEDS: ENOXAPARIN 30 MG/0.3 ML SYR (J1650) SC SCH (08:41)
[2017-09-06] MEDS: GLIMEPIRIDE 1 MG TABLET PO SCH (08:42)
[2017-09-06] MEDS: PANTOPRAZOLE 40MG TAB (PROTONIX) PO SCH (08:42)
[2017-09-06] MEDS: FUROSEMIDE 40 MG TAB PO SCH (08:42)
[2017-09-06] MEDS: ATORVASTATIN 20 MG TAB PO SCH (08:42)
[2017-09-06] MEDS: RAMIPRIL 1.25 MG CAP PO SCH ×2 (08:43→21:06)
[2017-09-06] MEDS: MAGNESIUM OXIDE 400 MG TAB (MAG-OX) PO SCH ×2 (08:43→21:06)
[2017-09-06] MEDS: GABAPENTIN 400 MG CAP PO SCH ×2 (08:43→21:07)
[2017-09-06] MEDS: MULTIVITAMINS/MINERALS THERAP 1 TAB PO SCH (08:43)
[2017-09-06] MEDS: CARVedilol 6.25 MG TAB PO SCH ×2 (08:44→21:07)
[2017-09-06] MEDS: ASPIRIN 81 MG ENTERIC TAB PO SCH (08:44)
[2017-09-06] MEDS: predniSONE 20 MG TAB PO SCH ×2 (08:44→21:07)
[2017-09-06] MEDS: SODIUM CHLORIDE 0.9% NASAL GEL 15MG (AYR) SCH ×4 (08:45→21:07)
[2017-09-06] MEDS: NYSTATIN CREAM 15 GM EXT SCH ×2 (08:45→21:07)
[2017-09-06 14:00] VITALS: BP 114/58
[2017-09-06] MEDS: CEFDINIR 300 MG CAP (OMNICEF) PO SCH (21:06)
[2017-09-06] MEDS: clonazePAM 1 MG TAB PO SCH (21:07)
[2017-09-06 22:00] VITALS: BP 106/59
--- NOTE | 2017-09-07 01:09 | IPNPDOC ---
Subjective Date Seen The patient was seen on 09/06/17. Subjective Chief Complaint/HPI The patient is a 82-year-old female admitted with a reason for visit of Dehydration, Uti. Events since last encounter She states that she is feeling better. She hopes to go home soon. Though her is ill, it is believed that they will have 24/7 care available this weekend. Constitutional: Denies: Chills, Fever Skin: Denies: Rash Pulmonary: Reports: Cough, Denies: Dyspnea Cardiovascular: Denies: Chest Pain, Palpitations Gastrointestinal: Denies: Nausea, Vomiting, Diarrhea, Constipation Objective Physical Examination General Exam: Positive: Alert, No Acute Distress (Bright and alert without signs of dyspnea with nasal canula on) Chest Exam: Positive: Normal air movement Heart Exam: Positive: Rate Normal, Normal S1, Normal S2 Telemetry: Positive: Atrial fibrillation Abdomen Exam: Positive: Normal bowel sounds, Soft, Negative: Tenderness Extremity Exam: Negative: Edema, Tenderness, Swelling Psych Exam: Positive: Mental status NL Assessment /Plan Problems (1) Pneumonia Status: Acute Problem Text: 09/06 -- cough persists but lungs clearer, no increased work of breathing. CXR reviewed. Switched to PO abx, plan DC this weekend 09/05 - Fortaz D#7 for HAP - Still with rattling BS and cough. Repeat CXR today not previously on oxygen at home - will likely need this upon discharge - continue to try to wean 09/01 CT 08/30/17: Moderate lower lobe consolidations with small bilateral pleural effusions and mild pulmonary vascular congestion. - Ceftazadime started 08/30/17 - (2) COPD (chronic obstructive pulmonary disease) Problem Text: 09/06 -- PO abx, slowly improving 09/03 Cont Fortaz Decrease Prednisone cont nebs/O2/IS/OOB (3) Paroxysmal atrial fibrillation Problem Text: 09/03 - rate controlled 09/01 Patient with newly diagnosed paroxysmal episodes of atrial fibrillation. - On coreg 6.25 mg BID (Increased 08/26 due to HR 127). - Eliquis was started at 2.5 mg BID, but was discontinued on 08/29 due to hemoptysis; Dr. Porter discussed risks and benefits of restarting Eliquis with the patient on 08/31, and she does not want to be on Eliquis due to recent bleeding episodes. She verbalized understanding that without blood thinner she is at risk of having another stroke, which could cause or disability. TSH normal Echo as below (4) Diastolic congestive heart failure Status: Chronic Problem Text: 09/03 - Stable on Lasix [address] results as above in #1. - Initially was given IV lasix for first 24 hours, but this was stopped as breathing troubles were thought to be more due to COPD and pneumonia. - Restart HD lasix 40 mg PO daily on 08/31 (5) Acute CVA (cerebrovascular accident) Status: Acute Discussed With: Physical Therapy Aide Problem Text: Brain MRI on admission revealed acute CVA. - Eliquis started due to PAF but now being held due to patient refusal - Per Neurology started aspirin 81 mg daily, atorvastatin 40 mg daily, PT/OT Carotid ultrasound showed 70% stenosis on the right and less than 50% stenosis of the left. Echo showed: Hyperdynamic left ventricular systolic function. LVEF 75% by visual estimate. No regional wall motion abnormalities of the left ventricle. Normal left ventricle size and wall thicknesses. Mild left atrial dilatation. Suggestive of mild elevation of pulmonary artery systolic pressure and estimated right ventricle systolic pressure. Normal right ventricle size and systolic function. Central venous pressure estimated to be in the normal range of 5-10 mmHg. Severe mitral annular calcification. No mitral regurgitation. No mitral stenosis. Mild aortic valve sclerosis of a 3-cusp aortic valve. (6) Physical deconditioning Status: Chronic Problem Text: 09/06 -- will need 24/7 care 09/02 - await further PT input today, anticipate need for 24 h care. 09/01: Dr. Porter held a a conversation with the patient's daughter and primary caregiver today - they would like to get her home as soon as possible and do not want her to go to short term rehab. I d/w them that if PT does not find her safe for discharge, she would only be able to go home with 24/7 care - currently she has caregivers from 6 am to 9 pm. PFS has been consulted and will need to assist with discharge planning. 08/26: Patient refused to do any substantial PT this morning. PT says patient is not safe for home discharge. Order placed for PFS consult to assess for potential placement 08/25 has not yet participated c PT (7) Ventricular tachycardia Status: Acute Problem Text: 08/29 - 3 beats V-tach overnight. Replace mag 08/26: Has not had another episode since Saturday. K 3.5, was given 40 MEQ PO today. Mg is 1.7. Continue to monitor. 08/25 K 3.7, Mg 1.8-gave 40 po and increased MOX 400 BID to 800 BID 08/24 TTE P 08/24 qhs asx NSVT while sleeping 08/24 CPK 34, T-I 0.02 (8) Urinary tract infection Status: Resolved Problem Text: 08/31: repeat urine culture is negative 08/30: u/a looks unlikely for continued UTI. 08/29: ordered u/a and culture was not collected and was cancelled by person unknown so will be re-ordered. 08/26: doxy is usually not a great choice for UTI since it is not excreted significantly into the urine. will repeat cath U/A today due to change in alertness. 08/26: 4 day course of Doxycycline started today and to be completed on 08/29. D3 ceftriaxone (08/26 start doxy for 4D for complicated UTI) 08/25 changed to doxy for 08/26 08/23 UCX S. epi (9) Type 2 diabetes mellitus Status: Chronic Problem Text: 09/06 -- elevated sugars likely secondary to steroids, as well as inadvertent regular diet instead of consistent carb 09/04 - cont HD Glimeperide (10) Hypertension Problem Text: Stable, continue current medications. (11) Osteoarthritis Problem Text: 08/24: Oxycodone restarted at dose of 5 mg by mouth every 6 hours when necessary 08/23: Continue to hold oxycodone due to altered mental status (12) Depression Problem Text: Home escitalopram was held upon admission due to AMS Plan/VTE VTE Prophylaxis Ordered?: Yes (Lovenox) Plan Therapy: PT, OT VS, I&O, 24H, Fishbone Vital Signs/I&O Vital Signs Date Time Temp Pulse Resp B/P (MAP) Pulse Ox O2 Delivery O2 Flow Rate FiO2 09/06/17 22:13 84 92 Room Air 09/06/17 21:22 90 106/59 09/06/17 14:00 98.2 09/06/17 05:05 2.0 Laboratory Data 24H LABS Laboratory Tests 2 09/06/17 05:55: Nucleated Red Blood Cells % (auto) 0.0, Anion Gap 6L, Glomerular Filtration Rate > 60.0, Blood Urea Nitrogen 29H, Creatinine 0.76, Sodium Level 136, Potassium Level 4.5, Chloride Level 93L, Carbon Dioxide Level 37H, Calcium Level 8.3L 09/06/17 06:40: Bedside Glucose (Misc Panel) 170H 09/06/17 12:02: Bedside Glucose (Misc Panel) 309H 09/06/17 16:53: Bedside Glucose (Misc Panel) 321H 09/06/17 20:15: Bedside Glucose (Misc Panel) 280H CBC/BMP Laboratory Tests 09/06/17 05:55 Red Blood Count 4.99, Mean Corpuscular Volume 96.0, Mean Corpuscular Hemoglobin 32.9, Mean Corpuscular Hemoglobin Concent 34.2, Red Cell Distribution Width 15.2 H, Calcium Level 8.3 L Microbiology Microbiology 08/29/17 Urine Culture - Final, Complete DONAVON RODRIGUEZ DO Sep 07, 2017 01:09
[2017-09-07] MEDS: IPRATROPIUM 0.5MG/ALBUTEROL 2.5MG INH SOL UD 3ML (DUONEB)(J7620) NEB SCH (01:17)
[2017-09-07 06:00] VITALS: BP 138/92
[2017-09-07 06:42] LABS: ANION GAP 6 MEQ/L (8-16); BLOOD UREA NITROGEN 32 MG/DL (7-18); CALCIUM LEVEL 8.5 MG/DL (8.8-10.2); CARBON DIOXIDE LEVEL 37 MEQ/L (21-32); CHLORIDE LEVEL 95 MEQ/L (98-107); GLOMERULAR FILTRATION RATE > 60.0 (>32); GLUCOSE, FASTING 225 MG/DL (83-110); POTASSIUM SERUM 4.4 MEQ/L (3.5-5.1); SODIUM LEVEL 138 MEQ/L (136-145)
[2017-09-07 06:43] LABS: MEAN CORPUSCULAR HEMOGLOBIN 32.4 pg (27.0-33.0); MEAN CORPUSCULAR HGB CONC 33.9 g/dl (32.0-36.5); MEAN CORPUSCULAR VOLUME 95.5 fl (80.0-96.0); PLATELET COUNT, AUTOMATED 154 10^3/uL (150-450); RED CELL DISTRIBUTION WIDTH 15.3 % (11.5-14.5); WHITE BLOOD COUNT 7.4 10^3/uL (4.0-10.0)
[2017-09-07] MEDS: GLIMEPIRIDE 1 MG TABLET PO SCH (09:09)
[2017-09-07] MEDS: PANTOPRAZOLE 40MG TAB (PROTONIX) PO SCH (09:09)
[2017-09-07] MEDS: ENOXAPARIN 30 MG/0.3 ML SYR (J1650) SC SCH (09:09)
[2017-09-07] MEDS: ATORVASTATIN 20 MG TAB PO SCH (09:09)
[2017-09-07] MEDS: ASPIRIN 81 MG ENTERIC TAB PO SCH (09:10)
[2017-09-07] MEDS: predniSONE 20 MG TAB PO SCH (09:10)
[2017-09-07] MEDS: MAGNESIUM OXIDE 400 MG TAB (MAG-OX) PO SCH (09:10)
[2017-09-07] MEDS: FUROSEMIDE 40 MG TAB PO SCH (09:10)
[2017-09-07] MEDS: MULTIVITAMINS/MINERALS THERAP 1 TAB PO SCH (09:10)
[2017-09-07] MEDS: CEFDINIR 300 MG CAP (OMNICEF) PO SCH (09:10)
[2017-09-07] MEDS: GABAPENTIN 400 MG CAP PO SCH (09:10)
[2017-09-07] MEDS: RAMIPRIL 1.25 MG CAP PO SCH (09:12)
[2017-09-07 09:13] VITALS: BP 134/86
[2017-09-07] MEDS: CARVedilol 6.25 MG TAB PO SCH (09:13)
[2017-09-07] MEDS: NYSTATIN CREAM 15 GM EXT SCH (09:13)
[2017-09-07] MEDS: SODIUM CHLORIDE 0.9% NASAL GEL 15MG (AYR) SCH ×2 (09:13→12:48)
[2017-09-07] MEDS: oxyCODONE 5MG TAB PO PRN (11:30)
[2017-09-07] MEDS ORDERED: ATOR1TAB21 PO (12:39)
[2017-09-07] MEDS ORDERED: NEBUMIS2 XX (12:39)
[2017-09-07] MEDS ORDERED: FULLMIS XX (12:39)
[2017-09-07] MEDS ORDERED: CARV6.25 PO (12:39)
[2017-09-07] MEDS ORDERED: IPRASOL4 NEB (12:39)
[2017-09-07] MEDS ORDERED: PRED5TA PO (12:39)
--- NOTE | 2017-09-07 21:19 | DS.PDOC ---
Discharge Summary General Date of Admission Aug 23, 2017 at 13:42 Date of Discharge September 07, 2017 Primary Care Physician: Suraj Valdivia M.D. Attending Physician: DONAVON RODRIGUEZ DO Specialist/Consultants Involve: SWETA HOU MD Specialist/Consultants Involve Dr. Vincenzo Elaine, Discharge Summary PROCEDURES PERFORMED DURING STAY: [None]. ADMITTING DIAGNOSES: 1. Altered mental status 2. Elevated H&H 3. Hyponatremia 4. DM2 5. COPD 6. Diastolic Heart Failure 7. HTN 8. Osteoarthritis, DJD 9. Depression 10. Insomnia 11. Anemia of chronic disease 12. History of recurrent pancreatitis 13. Hx of alcohol hepatitis/cirrhosis DISCHARGE DIAGNOSES: 1. 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 paroxysmal atrial fibrillation 3. pneumonia 4. acute exacerbation of COPD 5. asymptomatic V tach while sleeping 6. urinary tract infection 7. Hyponatremia 8. diabetes mellitus type 2 9. COPD 10. Diastolic Heart Failure 11. HTN 12. Osteoarthritis, DJD 13. Depression 14. Insomnia 15. physical deconditioning 16. Anemia of chronic disease 17. History of recurrent pancreatitis 18. Hx of alcohol hepatitis/cirrhosis COMPLICATIONS/CHIEF COMPLAINT: Dehydration, Uti. HISTORY OF PRESENT ILLNESS: 81-year-old female is brought to the ED by home health aide due to altered mental status and lethargy. PMH includes Diastolic Heart failure, HTN, COPD on 2L NC prn, hx of recurrent pancreatitis, alcohol hepatitis/cirrhosis. Per aide, patient complained of weakness in her legs 2 days ago, and as of yesterday was very lethargic, unable to self assist herself with movements, and and out of coherence, babbling her words, lacking strength, and confused. For the 2 months this aide has worked with patient, she denies having witnessed this before. Per aide, patient had baseline is communicative and able to move on her own. Health aid denies the patient having slurred speech , droopy face, body shaking, loss of bowel or bladder function. In the ED, patient was given a fluid bolus and 1 dose of Cipro. HOSPITAL COURSE: Patient was treated for a UTI, and some of her confusion improved. She was also discovered to have a CVA, suggested on initial head CT and confirmed with an MRI the morning of admission. Escitalopram, Ambien, and oxycodone were held seconary to AMS, though oxycodone was restarted when her mentation cleared. Dr. Hou from neurology was consulted. While monitored on telemetry she was found to have atrial fibrillation, a few runs of asymptomatic ventricular tachycardia, and even a couple sinus pauses. The V-tach was better after correction of electrolytes. Echocardiogram and carotid US were performed. She was anticoagulated on Eliquis, but that was stopped after she experienced epistaxis. The day after she had an episode of hemoptysis, for which critical care was consulted. Patient elected to remain off Eliquis after discussion with attending. Patient was reluctant or unable to participate with PT much during her hospitalization. PT felt that she would only be safe if she were provided 24/ care at home, and her caregivers assured us that they were capable of providing that. While hospitalized she developed a COPD exacerbation and pneumonia. Dr. Elaine was consulted after patient developed hemoptysis. Her hypoxia was slow to improve, but she was weaned off oxygen prior to DC. DISCHARGE MEDICATIONS: Please see below. ALLERGIES: Please see below. PHYSICAL EXAMINATION ON DISCHARGE: VITAL SIGNS: Please see below. GENERAL: frail elderly female HEENT: MMM NECK: supple CARDIOVASCULAR EXAMINATION: regular rate and irregular rhythm RESPIRATORY EXAMINATION: rhonchi L base cleared after cough, increased expiratory phase ABDOMINAL EXAMINATION: soft, nontender and nondistended EXTREMITIES: no edema SKIN: intact NEUROLOGICAL EXAMINATION: despite recent CVA, nonfocal exam LABORATORY DATA: Please see below. IMAGING: Noncontrast head CT 08/23 showed: 1. Age-appropriate cerebellar and cerebral atrophy. 2. Mild chronic microvascular disease. 3. Cortical/subcortical hypodensity in the left frontal/temporal lobes. This may represent Acute/subacute ischemia. Clinical evaluation and followup are suggested. No associated significant edema, midline shift or brain herniation. Findings are not present on prior exam. MRI brain without contrast showed: The areas of acute infarction involving the left temporal and left parietofrontal lobe regions with mild edema. No intracranial hemorrhage or mass effect is appreciated. Carotid US 08/24 showed Bilateral atheromatous plaquing (right greater than left). Based on set standards, narrowing through the right carotid bulb and internal carotid artery approaches the 70% range while narrowing through the left carotid bulb and internal carotid artery is in the less than 50% range. Chest CT 08/30 showed Moderate lower lobe consolidations with small bilateral pleural effusions and mild pulmonary vascular congestion. By 09/05 CXR findings had resolved, and radiology read as only chronic interstitial changes. PROGNOSIS: fair ACTIVITY: [As tolerated]. DIET: low cholesterol DISCHARGE PLAN: home DISPOSITION: 01 Home, Self-Care. DISCHARGE INSTRUCTIONS: Take all medications as instructed. Contact the office with fever, shortness of breath, or any other concerning symptoms. ITEMS TO FOLLOWUP ON ON OUTPATIENT: 1. CVA 2. COPD 3. arrhythmias DISCHARGE CONDITION: [Stable]. TIME SPENT ON DISCHARGE: Greater than 30 minutes. Vital Signs/I&Os Vital Signs Date Time Temp Pulse Resp B/P (MAP) Pulse Ox O2 Delivery O2 Flow Rate FiO2 09/07/17 12:00 16 09/07/17 09:13 90 134/86 09/07/17 09:00 Room Air 09/07/17 09:00 95 09/07/17 06:00 97.6 09/06/17 05:05 2.0 I&O- Last 24 Hours up to 6 AM 09/08/17 06:00 Intake Total 120 ml Balance 120 ml Laboratory Data Labs 24H Laboratory Tests 2 09/07/17 06:00: Nucleated Red Blood Cells % (auto) 0.0, Anion Gap 6L, Glomerular Filtration Rate > 60.0, Blood Urea Nitrogen 32H, Creatinine 0.70, Sodium Level 138, Potassium Level 4.4, Chloride Level 95L, Carbon Dioxide Level 37H, Calcium Level 8.5L CBC/BMP Laboratory Tests 09/07/17 06:00 Red Blood Count 4.63, Mean Corpuscular Volume 95.5, Mean Corpuscular Hemoglobin 32.4, Mean Corpuscular Hemoglobin Concent 33.9, Red Cell Distribution Width 15.3 H, Calcium Level 8.5 L Microbiology Microbiology 08/29/17 Urine Culture - Final, Complete Discharge Medications Scheduled (Gabapentin) 400 Mg Cap, 400 MG PO BID, (Reported) Ascorbic Acid (Vitamin C) 500 Mg Tab, 500 MG PO QAM, (Reported) Aspirin (Aspirin) 81 Mg Tab, 81 MG PO DAILY, (Reported) Atorvastatin Calcium (Atorvastatin Calcium) 20 Mg Tab, 40 MG PO DAILY Carvedilol (Carvedilol) 6.25 Mg Tab, 6.25 MG PO BID Clonazepam (Klonopin) 1 Mg Tab, 1 MG PO BID, (Reported) Ergocalciferol (Vitamin D) 50,000 Unit Cap, 50,000 UNIT PO QWEEK, (Reported) ON WEDNESDAYS Furosemide (Lasix) 40 Mg Tab, 40 MG PO DAILY, (Reported) Glimepiride (Glimepiride) 1 Mg Tab, 1 MG PO BID, (Reported) Multivitamins *[facility] STOCKED* (Thera M Plus *[facility] STOCKED*) 1 Tab Tab, 1 TAB PO DAILY, (Reported) Oxycodone HCl (Oxycodone HCl) 5 Mg Tab, 5 MG PO ASDIRECTED, (Reported) EVERY 5 HOURS AND 2 AT BEDTIME NEEDED FOR PAIN Prednisone (Prednisone) 5 Mg Tab, 5 MG PO DAILY Take 2 tabs PO daily x 4 days, then 1 PO daily x 4 days, then 1/2 PO daily x 4 days Ramipril (Altace) 5 Mg Cap, 5 MG PO BID, (Reported) Scheduled PRN Albuterol/Ipratropium (Ipratropium [place]/Albut 0.5-2.5 (3) mg/3Ml) 1 Elaine Elaine, 3 ML NEB Q4HP PRN for DYSPNEA Zolpidem Tartrate (Zolpidem Tartrate) 5 Mg Tab, 5 MG PO QHS PRN for SLEEP, ( Reported) Allergies Coded Allergies: Clavulanic Acid (Verified Adverse Reaction, Mild, VOMITING, 01/05/13) Penicillins (Verified Adverse Reaction, Mild, VOMITING, 01/05/13) Penicillins Cross Reactors (Verified Adverse Reaction, Mild, VOMITING, 09/06/17) Patient has tolerated ceftazidime DONAVON RODRIGUEZ DO Sep 07, 2017 21:19
== END 2017-09-07 15:30 | disposition home or self-care (01) | DRG 64 ==
LOC: EDBD 03:23 → M ED 03:23 → M ED INP 03:24 → M MS5PR 06:43 → INTOOBSV 13:42 → OBSVTOIN 13:42 → M MS5PR 16:20 → M PCU 18:55 → M MSPAV 08-27 13:56
PROVIDERS: ADMIT Internal Medicine; ATTEND Family Medicine
DX: I63.532 Cerebral infarction due to unspecified occlusion or stenosis of left posterior cerebral artery (principal); J69.0 Pneumonitis due to inhalation of food and vomit; N39.0 Urinary tract infection, site not specified; I50.32 Chronic diastolic (congestive) heart failure; E87.0 Hyperosmolality and hypernatremia; I47.2 Ventricular tachycardia; J98.11 Atelectasis; R04.2 Hemoptysis; J44.1 Chronic obstructive pulmonary disease with (acute) exacerbation; R41.82 Altered mental status, unspecified; I11.0 Hypertensive heart disease with heart failure; K70.30 Alcoholic cirrhosis of liver without ascites; F32.9 Major depressive disorder, single episode, unspecified; I48.0 Paroxysmal atrial fibrillation; E86.0 Dehydration; F10.10 Alcohol abuse, uncomplicated; G47.00 Insomnia, unspecified; N39.46 Mixed incontinence; R04.0 Epistaxis; E11.9 Type 2 diabetes mellitus without complications; G25.0 Essential tremor; E83.42 Hypomagnesemia; B95.8 Unspecified staphylococcus as the cause of diseases classified elsewhere; K21.9 Gastro-esophageal reflux disease without esophagitis; D63.8 Anemia in other chronic diseases classified elsewhere; M19.90 Unspecified osteoarthritis, unspecified site; K70.10 Alcoholic hepatitis without ascites; Z99.81 Dependence on supplemental oxygen; Z79.82 Long term (current) use of aspirin; Z79.891 Long term (current) use of opiate analgesic; Z79.899 Other long term (current) drug therapy; Z88.0 Allergy status to penicillin; Z88.8 Allergy status to other drugs, medicaments and biological substances; Z85.3 Personal history of malignant neoplasm of breast; Z92.3 Personal history of irradiation; Z92.21 Personal history of antineoplastic chemotherapy; Z87.891 Personal history of nicotine dependence